=== PATIENT | female | born 1970 | race American Indian/Alaskan Native ===

== ENCOUNTER 2019-10-22 09:32 | Emergency (ER) | payer OTHER ==
[2019-10-22] MEDS ORDERED: KETOROLAC 30 MG/1 ML INJ IM ONE (12:31)
--- NOTE | 2019-10-22 12:55 | XRay Report ---
LEFT FOREARM HISTORY: Pain. COMPARISON: None. TECHNIQUE: 2 views of the left forearm were obtained. FINDINGS: Bones: No fracture or dislocation. Joint spaces: Maintained. Soft tissues: No significant abnormality. Additional findings: None. IMPRESSION: 1. No significant abnormality. Signer Name: Donnell Ritter MD Signed: 10/22/2019 12:50 PM Workstation Name: [id number]
--- NOTE | 2019-10-22 12:57 | XRay Report ---
LEFT HAND HISTORY: Pain. COMPARISON: None. TECHNIQUE: 3 views of the left hand were obtained. FINDINGS: Bones: No fracture or dislocation. Joint spaces: Mild osteoarthritis at the first MCP joint. The rest of the joints are normal. Soft tissues: No significant abnormality. Additional findings: None. IMPRESSION: 1. Mild osteoarthritis of the thumb and otherwise negative. Signer Name: Donnell Ritter MD Signed: 10/22/2019 12:52 PM Workstation Name: [id number]
--- NOTE | 2019-10-22 13:29 | Emergency Department Report ---
ED General Adult HPI - General Chief complaint: Extremity Injury, Upper Stated complaint: LFT HAND SWELLING/PAIN Time Seen by Provider: 10/22/19 11:18 Source: patient Mode of arrival: Ambulatory Limitations: No Limitations - History of Present Illness Initial comments: 49 yo BF states that she has L wrist and forearm pain x 1 day after attempting to get up from the floor. Pt states that her pain is a 10. -: days(s) Location: upper extremity Radiation: distal Severity scale (0 -10): 7 Quality: aching Consistency: constant Improves with: immobilization Worsens with: movement Associated Symptoms: denies other symptoms Treatments Prior to Arrival: none - Related Data Previous Rx's Medication Instructions Recorded Last Taken Type Ibuprofen [Motrin 600 MG tab] 600 mg PO Q8H PRN 7 Days #21 tablet 10/22/19 Unknown Rx Allergies Allergy/AdvReac Type Severity Reaction Status Date / Time No Known Allergies Allergy Unverified 10/22/19 09:34 ED Review of Systems ROS: Stated complaint: LFT HAND SWELLING/PAIN Other details as noted in HPI ED Past Medical Hx - Past Medical History Hx Hypertension: Yes Hx Asthma: Yes Additional medical history: fibromyalgia - Surgical History Additional Surgical History: tonsilectomy - Social History Smoking Status: Never Smoker Substance Use Type: None - Medications Home Medications: Home Medications Medication Instructions Recorded Confirmed Last Taken Type Ibuprofen [Motrin 600 MG tab] 600 mg PO Q8H PRN 7 Days #21 tablet 10/22/19 Unknown Rx ED Physical Exam - General Limitations: No Limitations General appearance: alert, in no apparent distress - Head Head exam: Present: atraumatic, normocephalic, normal inspection - Eye Eye exam: Present: normal appearance, PERRL, EOMI - ENT ENT exam: Present: normal exam, normal orophraynx - Neck Neck exam: Present: normal inspection, full ROM. Absent: tenderness - Respiratory Respiratory exam: Present: normal lung sounds bilaterally. Absent: respiratory distress, wheezes - Cardiovascular Cardiovascular Exam: Present: regular rate, normal rhythm, normal heart sounds - GI/Abdominal GI/Abdominal exam: Present: soft. Absent: distended, tenderness - Rectal Rectal exam: Present: deferred - Expanded Upper Extremity Exam Left General: Absent: laceration, abrasion Shoulder Exam: Present: normal inspection, full ROM. Absent: tenderness Upper Arm exam: Present: normal inspection, full ROM. Absent: tenderness, swelling Elbow exam: Present: normal inspection, full ROM. Absent: tenderness Forearm Wrist exam: Present: tenderness (diffuse distal tenderness of L forearm), swelling (mild swelling distally of L forearm) Hand Wrist exam: Present: normal inspection, full ROM, tenderness (L distal wrist and proximal hand) Neuro motor exam: Present: wrist extension intact Neurosensory exam: Present: 2-point discrimination Vascular: Present: normal capillary refill - Back Exam Back exam: Present: normal inspection, full ROM. Absent: tenderness - Neurological Exam Neurological exam: Present: alert, altered, oriented X3, CN II-XII intact, normal gait - Psychiatric Psychiatric exam: Present: normal affect, normal mood. Absent: depressed - Skin Skin exam: Present: warm, dry, intact ED Course Vital Signs 10/22/19 10/22/19 09:38 09:46 Temperature 99.0 F 99.0 F Pulse Rate 93 H 93 H Respiratory 18 18 Rate Blood Pressure 152/102 Blood Pressure 182/111 [Right] O2 Sat by Pulse 100 99 Oximetry ED Medical Decision Making - Radiology Data Print Report Referring Physician: KEVIN LUNA Patient Name: SAMANTHA CARDENAS Date of : 1970 Sex: Female Report Date: 2019-10-22 Report Status: Finalized Findings [address] [address] XRay Report Signed Patient: SAMANTHA CARDENAS MR#: [id number] : 1970 Acct:[id number] Age/Sex: 49 / F ADM Date: 10/22/19 Loc: ED Attending Dr: Ordering Physician: KEVIN LUNA PA-C Date of Service: 10/22/19 Procedure(s): XR hand 3+V LT Accession Number(s): [id number] cc: KEVIN LUNA PA-C Fluoro Time In Minutes: LEFT HAND HISTORY: Pain. COMPARISON: None. TECHNIQUE: 3 views of the left hand were obtained. FINDINGS: Bones: No fracture or dislocation. Joint spaces: Mild osteoarthritis at the first MCP joint. The rest of the joints are normal. Soft tissues: No significant abnormality. Additional findings: None. IMPRESSION: 1. Mild osteoarthritis of the thumb and otherwise negative. Signer Name: Donnell Eisenberg MD Signed: 10/22/2019 12:52 PM Workstation Name: [id number] Transcribed By: REF Dictated By: DONNELL EISENBERG MD Electronically Authenticated By: DONNELL EISENBERG MD Signed Date/Time: 10/22/19 1252 DD/ 1250 TD/TT: Print Report Referring Physician: KEVIN LUNA Patient Name: SAMANTHA CARDENAS Date of : 1970 Sex: Female Report Date: 2019-10-22 Report Status: Finalized Findings [facility] [address] [place] [address] XRay Report Signed Patient: SAMANTHA CARDENAS MR#: [id number] : 1970 Acct:[id number] Age/Sex: 49 / F ADM Date: 10/22/19 Loc: ED Attending Dr: Ordering Physician: KEVIN LUNA PA-C Date of Service: 10/22/19 Procedure(s): XR forearm LT Accession Number(s): [id number] cc: KEVIN LUNA PA-C Fluoro Time In Minutes: LEFT FOREARM HISTORY: Pain. COMPARISON: None. TECHNIQUE: 2 views of the left forearm were obtained. FINDINGS: Bones: No fracture or dislocation. Joint spaces: Maintained. Soft tissues: No significant abnormality. Additional findings: None. IMPRESSION: 1. No significant abnormality. Signer Name: Donnell Eisenberg MD Signed: 10/22/2019 12:50 PM Workstation Name: [id number] Transcribed By: REF Dictated By: DONNELL EISENBERG MD Electronically Authenticated By: DONNELL EISENBERG MD Signed Date/Time: 10/22/19 1250 DD/ 1249 TD/TT: - Medical Decision Making 49 yo BF states that she has L wrist and forearm pain x 1 day after attempting to get up from the floor. Pt states that her pain is a 10. Imaging revealed no acute abnormalities. A wrist splint was applied and the pt was given Ibuprofen upon discharge. She was explained that her injury and exam are indicative of a wrist sprain. Pt was instructed to f/u with her PCP and see ER as needed. Critical care attestation.: If time is entered above; I have spent that time in minutes in the direct care of this critically ill patient, excluding procedure time. ED Disposition Clinical Impression: Left wrist sprain Disposition: - TO HOME OR SELFCARE Is pt being admited?: No Does the pt Need Aspirin: No Condition: Stable Instructions: Wrist Sprain (ED) Additional Instructions: A wrist splint was applied and the pt was given Ibuprofen upon discharge. She was explained that her injury and exam are indicative of a wrist sprain. Pt was instructed to f/u with her PCP and see ER as needed. Prescriptions: Ibuprofen [Motrin 600 MG tab] 600 mg PO Q8H PRN 7 Days #21 tablet PRN Reason: Pain Referrals: PRIMARY CARE, [Primary Care Provider] - 3-5 Days [facility] [Outside] - 3-5 Days Time of Disposition: 13:42
[2019-10-22 13:34] VITALS: BP 174/99
== END 2019-10-22 13:55 | disposition home or self-care (01) ==
LOC: ED 09:32
DX: S63.502A Unspecified sprain of left wrist, initial encounter (principal); X50.9XXA Other and unspecified overexertion or strenuous movements or postures, initial encounter; Y93.89 Activity, other specified; Y92.89 Other specified places as the place of occurrence of the external cause; Y99.8 Other external cause status; I10 Essential (primary) hypertension; J45.909 Unspecified asthma, uncomplicated
CPT/HCPCS: 29125; 73090; 73130; 96372; 99283; J1885

== ENCOUNTER 2021-01-09 10:10 | Inpatient (IN) | payer OTHER ==
[2021-01-09] MEDS ORDERED: ASPIRIN 81 MG TAB CHEW PO ONE (10:16)
[2021-01-09] MEDS ORDERED: HEPARIN 10,000 UNITS/10 ML VIAL IV ONE (10:16)
[2021-01-09] MEDS ORDERED: CLOPIDOGREL 300 MG TAB PO ONE (10:16)
[2021-01-09] MEDS ORDERED: MIDAZOLAM 2 MG/2 ML INJ ONE (10:17)
[2021-01-09] MEDS ORDERED: fentaNYL 100 MCG/2 ML INJ IV ONE (10:17)
[2021-01-09] MEDS ORDERED: VERAPAMIL 5 MG/2 ML INJ ONE ×2 (10:17→11:39)
[2021-01-09] MEDS ORDERED: HEPARIN/NS 5000 UNIT/500ML 1,000 ML IR ONE (10:17)
[2021-01-09] MEDS ORDERED: ONDANSETRON 4 MG/2 ML INJ IV ONE (10:17)
[2021-01-09] MEDS ORDERED: NITROGLYCERIN SYRINGE 3 ML ONE ×3 (10:18→12:03)
[2021-01-09] MEDS ORDERED: LIDOCAINE (2%) 20 MG/1 ML VIAL 20 ML MDV INFILTRATI ONE (10:18)
[2021-01-09] MEDS ORDERED: ATROPINE 0.1% (1 MG/10 ML) CARDIAC SYRINGE ONE (10:19)
[2021-01-09] MEDS ORDERED: EPINEPHrine 1 MG/10 ML SYRINGE ONE (10:19)
[2021-01-09] MEDS ORDERED: PHENYLEPHRINE/NS 1,000 MCG/10 ML SYRINGE (OR USE) IV ONE (10:19)
[2021-01-09] MEDS ORDERED: SODIUM CHLORIDE 0.9% 500 ML 500 ML ONE (10:20)
--- NOTE | 2021-01-09 10:24 | Emergency Department Report ---
HPI - General Time Seen by Provider: 01/09/21 10:15 - HPI HPI: Room 1 The patient is a 42-year-old female present with chief complaint of chest pain. Patient states she is has substernal chest pain since last night described as a pressure in nature radiating to her back and right upper extremity. Patient admits to shortness of breath and nausea without vomiting in addition to diaphoresis associated with this chest pain. EMS called prior to arrival to the ED to describe the prehospital EKG but it was not transmitted. Machine Stuffer Dr. Key was called at 09:55 and made aware of EMS findings and EKG ED Past Medical Hx - Past Medical History Hx Hypertension: Yes Hx Asthma: Yes Additional medical history: fibromyalgia - Surgical History Past Surgical History?: No Additional Surgical History: tonsilectomy - Family History Family history: no significant - Social History Smoking Status: Never Smoker Substance Use Type: None - Medications Home Medications: Home Medications Medication Instructions Recorded Confirmed Last Taken Type Ibuprofen [Motrin 600 MG tab] 600 mg PO Q8H PRN 7 Days #21 tablet 10/22/19 Unknown Rx ED Review of Systems ROS: Stated complaint: POSSIBLE STROKE Other details as noted in HPI Constitutional: no symptoms reported Eyes: denies: eye pain ENT: denies: throat pain Respiratory: shortness of breath Cardiovascular: chest pain Endocrine: no symptoms reported Gastrointestinal: nausea. denies: vomiting Genitourinary: denies: dysuria Musculoskeletal: denies: back pain Neurological: denies: headache Physical Exam - Physical Exam Physical Exam: GENERAL: The patient is well-developed well-nourished female lying on stretcher appearing to be in moderate discomfort. [] HEENT: Normocephalic. Atraumatic. Extraocular motions are intact. Patient has moist mucous membranes. NECK: Supple. Trachea midline CHEST/LUNGS: Clear to auscultation. There is no respiratory distress noted. HEART/CARDIOVASCULAR: Regular. There is no tachycardia. There is no gallop rub or murmur. ABDOMEN: Abdomen is soft, nontender. Patient has normal bowel sounds. There is no abdominal distention. SKIN: There is no rash. There is no diaphoresis. NEURO: The patient is awake, alert, and oriented. The patient is cooperative. The patient has no focal neurologic deficits. The patient has normal speech MUSCULOSKELETAL: There is no evidence of acute injury. ED Course - Consultations Consultation #1: 04/05/21 10:10 Prehospital EKGs sent to Dr. Key-recommends Plavix, heparin drip and taking to [facility] ED Medical Decision Making - EKG Data -: EKG Interpreted by Me EKG shows normal: sinus rhythm Rate: normal - EKG Data When compared to previous EKG there are: previous EKG unavailable Interpretation: acute NJ (EMS EKG showed shows inferior NJ) - Differential Diagnosis STEMI, pericarditis, GERD Critical care attestation.: If time is entered above; I have spent that time in minutes in the direct care of this critically ill patient, excluding procedure time. ED Disposition Clinical Impression: STEMI (ST elevation myocardial infarction) Disposition: DC-09 OP ADMIT IP TO THIS HOSP Is pt being admited?: Yes Does the pt Need Aspirin: Yes Condition: Serious Time of Disposition: 10:35 (Hospitalist notified (Dr. Alexander))
[2021-01-09] MEDS: fentaNYL 100 MCG/2 ML INJ ONE ×3 (10:57→11:43)
[2021-01-09] MEDS ORDERED: hydrALAZINE 20 MG/1 ML INJ ONE (11:01)
[2021-01-09] MEDS ORDERED: TIROFIBAN/NS 12,500 MCG/250 ML BAG IV ONE (11:06)
[2021-01-09] MEDS: HEPARIN 10,000 UNITS/10 ML VIAL ONE ×2 (11:08→12:15)
[2021-01-09 11:09] LABS: INR 0.94 (0.87-1.13)
[2021-01-09 11:10] LABS: Partial Thromboplastin Time 35.7 Sec. (24.2-36.6)
[2021-01-09] MEDS ORDERED: NITROGLYCERIN DRIP 50 MG/250 ML BOTTLE ONE (11:18)
[2021-01-09 11:25] LABS: Hematocrit 48.2 % (30.3-42.9); Hemoglobin 16.9 gm/dl (10.1-14.3); Mean Corpuscular HGB Conc 35 % (30-34); Mean Corpuscular Volume 88 fl (79-97); Red Blood Count 5.49 M/mm3 (3.65-5.03)
[2021-01-09 11:26] LABS: Basophils % (Auto) 0.4 % (0.0-1.8); Eosinophils % (Auto) 0.1 % (0.0-4.3); Lymphocytes % (Auto) 19.9 % (13.4-35.0); Monocytes % (Auto) 8.6 % (0.0-7.3); Platelet Count 320 K/mm3 (140-440); Red Cell Distribution Width 15.3 % (13.2-15.2)
[2021-01-09 11:27] LABS: Lymphocytes # (Auto) 1.9 K/mm3 (1.2-5.4); Monocytes # (Auto) 0.8 K/mm3 (0.0-0.8)
[2021-01-09] MEDS ORDERED: NITROGLYCERIN 600 MCG/3 ML SYRINGE INTRA-CORO ONE ×3 (11:30→12:03)
[2021-01-09] MEDS ORDERED: TIROFIBAN 12.5 MG/250 ML BOLUS (50 MCG/ML) IV ONE (11:38)
[2021-01-09] MEDS ORDERED: HEPARIN/ 0.45% NACL DRIP 25,000 UNIT/500 ML BAG IV SCH (12:00)
[2021-01-09] MEDS ORDERED: METOPROLOL TARTRATE 5 MG/5 ML INJ IV ONE (12:03)
[2021-01-09] MEDS ORDERED: traMADol 50 MG TAB PO PRN (12:38)
[2021-01-09] MEDS ORDERED: ZOLPIDEM 5 MG TAB PO PRN (12:38)
[2021-01-09] MEDS ORDERED: SODIUM CHLORIDE 0.9% 1000 ML 1,000 ML IV SCH (12:45)
--- NOTE | 2021-01-09 12:47 | Consultation ---
History of Present Illness Consult date: 01/09/21 Consult reason: other (Acute STEMI) History of present illness: The patient is a 50-year-old woman with a history of hypertension, no prior cardiac history. She presented to the emergency room with an acute inferior STEMI. Emergency cardiac catheterization protocol was activated. 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 Primary angioplasty was performed, revealing the diffusely diseased and calcified vessel, required extensive balloon angioplasty, serial 3.5 mm drug- eluting stents and adjunct export catheter thrombectomy for extensive intraluminal thrombus. Ultimately, an excellent angiographic result and church of DESTINY-3 flow. Please see dictated report for details. It will be noted that due to difficulty in transitioning wires and balloon catheters through a tortuous, diffusely diseased and heavily calcified vessel, there was a delay in first balloon dilatation. The patient is admitted to the CCU in stable condition, an echocardiogram will be ordered for left ventricular function assessment. Left ventricular angiogr aphy was deferred due to considerations of contrast load. Past History Past Medical History: hypertension Medications and Allergies Allergies Allergy/AdvReac Type Severity Reaction Status Date / Time No Known Allergies Allergy Unverified 10/22/19 09:34 Home Medications Medication Instructions Recorded Confirmed Last Taken Type Ibuprofen [Motrin 600 MG tab] 600 mg PO Q8H PRN 7 Days #21 tablet 10/22/19 Unknown Rx Active Meds: Active Medications Amlodipine Besylate (Amlodipine 10 Mg Tab) 10 mg PO QDAY GIDEON Aspirin (Aspirin Ec 325 Mg Tab) 325 mg PO QDAY GIDEON Clopidogrel Bisulfate (Clopidogrel 75 Mg Tab) 75 mg PO QDAY GIDEON Sodium Chloride (Nacl 0.9% 1000 Ml) 1,000 mls @ 100 mls/hr IV DIRECT GIDEON Stop: 01/10/21 00:44 Nitroglycerin/Dextrose (Tridil Drip 50mg/250ml) 50 mg in 250 mls @ 6 mls/hr IV TITR ONE; Protocol Stop: 01/11/21 06:17 Tirofiban/Sodium Chloride (Aggrastat Drip (12.5 Mg/250 Ml)) 12,500 mcg in 250 mls @ 0 mls/hr IV DIRECT GIDEON; Protocol Stop: 01/10/21 06:59 Metoprolol Tartrate (Metoprolol Tartrate 50 Mg Tab) 50 mg PO Q8H GIDEON Tramadol HCl (Tramadol 50 Mg Tab) 50 mg PO Q4H PRN PRN Reason: Pain, Mild (1-3) Zolpidem Tartrate (Zolpidem 5 Mg Tab) 5 mg PO QHS PRN PRN Reason: Sleep Review of Systems Cardiovascular: chest pain, shortness of breath, no orthopnea, no palpitations, no rapid/irregular heart beat, no edema, no syncope, no lightheadedness Physical Examination Vital Signs Pulse Resp BP Pulse Ox 118 H 16 186/114 100 01/09/21 10:10 01/09/21 10:10 01/09/21 10:10 01/09/21 10:10 General appearance: mild distress HEENT: Positive: PERRL Cardiac: Positive: Reg Rate and Rhythm Lungs: Positive: clear to auscultation Neuro: Positive: Grossly Intact Abdomen: Positive: Soft Female genitourinary: deferred Skin: Positive: Clear Extremities: Absent: edema Results 01/09/21 10:43 Coagulation 01/09/21 Range/Units 10:43 PT 12.4 (12.2-14.9) Sec. INR 0.94 (0.87-1.13) APTT 35.7 (24.2-36.6) Sec. CBC 01/09/21 Range/Units 10:43 WBC 9.5 (4.5-11.0) K/mm3 RBC 5.49 H (3.65-5.03) M/mm3 Hgb 16.9 H (10.1-14.3) gm/dl Hct 48.2 H (30.3-42.9) % Plt Count 320 (140-440) K/mm3 Lymph # (Auto) 1.9 (1.2-5.4) K/mm3 Johnston # (Auto) 0.8 (0.0-0.8) K/mm3 Eos # (Auto) 0.0 (0.0-0.4) K/mm3 Baso # (Auto) 0.0 (0.0-0.1) K/mm3 EKG interpretations - Telemetry EKG Rhythm: Sinus Rhythm (With acute inferior STEMI) Assessment and Plan - Patient Problems (1) STEMI (ST elevation myocardial infarction) Current Visit: Yes Status: Acute Plan to address problem: Acute inferior STEMI was followed by emergency cardiac catheterization and successful primary angioplasty and stenting of the right coronary artery. Patient will be admitted to the CCU, an echocardiogram has been ordered for left ventricular function assessment, will maintain guideline directed medical the rapy and appropriate supportive care. Due to the intraluminal thrombus, the patient will be treated with Aggrastat for 18 hours. I have had a phone conversation with the patient's sister Wendy, and informed her of the presentation, findings of cardiac catheterization and the treatments including the interventional procedure.
[2021-01-09] MEDS ORDERED: TIROFIBAN/NS 12,500 MCG/250 ML BAG IV SCH (13:00)
--- NOTE | 2021-01-09 13:01 | Cardiac Catherization Report ---
CARDIAC CATHETERIZATION AND CORONARY ANGIOPLASTY REASON FOR PROCEDURE: The patient is a 50-year-old woman with history of hypertension, who presented to the hospital with chest pain and inferior ST elevation myocardial infarction. Emergency cardiac catheterization protocol was activated and we were asked to perform a cardiac catheterization. The patient reports no prior coronary history. PROCEDURES: 1. Left heart catheterization. 2. Selective left and right coronary angiography. 3. Coronary angioplasty and stenting of the right coronary artery. 4. Calvert catheter thrombectomy of the RCA 5. Sedation time; start 1057, end 1209. I was present for the entire procedure and supervised the moderate sedation protocol. The patient was prepped and draped in a sterile fashion under emergency protocol. The right femoral artery was entered using Seldinger technique followed by placement of a 6-Niuean sheath. Selective angiography of the left coronary system was done using a #4 left Crystal catheter. We then exchanged for a #4 right Crystal guiding catheter and advanced to the right coronary ostium. Angiograms of the right coronary artery were taken. The angiograms were reviewed. CORONARY ANGIOGRAPHY: The left main coronary artery was free of significant disease. The left anterior descending artery contained mild luminal irregularities in its mid segment. There was enough to 20% luminal stenosis of the mid LAD. The circumflex artery contained a 50% stenosis of its mid AV groove segment before its terminal obtuse marginal. The right coronary artery was dominant, and infarct vessel. This vessel was completely occluded at its ostium. There was no forward flow. CORONARY ANGIOPLASTY: We proceeded with immediate primary angioplasty of the right coronary artery. A 0.014 inch Can Carrier 50 guidewire was introduced into the vessel Due to the severe calcification and tortuosity at the proximal right coronary artery, there was marked difficulty in both transitioning a guidewire and a balloon catheter into the vessel. We used multiple guidewire and balloon catheter combinations including an [id number] balloon and eventually we were able to transition a 1.5 mm balloon into the vessel to perform predilatation. Due to the tortuosity and poor vessel compliance, we also upgraded the wire to an Iron Man wire for easier delivery of balloon catheters and stents. Due to the difficulty encountered in transitioning a wire and balloon catheters into this heavily calcified, tortuous vessel that was occluded at its ostium, there was a delay in initial balloon delivery and inflation. After finally successfully dilating the vessel and reestablishing DESTINY 2 flow, we found a diffusely diseased vessel extending from the ostium all the way to the acute margin. There was another secondary stenosis of the distal AV groove between the acute margin and the posterior descending branch. We then deployed a serial, 3.5 mm stents extending from the ostium covering the entire proximal and mid segments. After this initial stent, there was evidence of extensive residual filling defect that appeared consistent with thrombus. EXPORT CATHETER THROMBECTOMY: We then deployed an Calvert catheter in order to attenuate the extensive thrombus encountered in the vessel. Following several passes, the thrombus burden was mitigated but there was still residual severe disease involving the area around the acute margin. Another series of 3.5 mm drug-eluting stents were then deployed around the acute margin and focally on the distal secondary lesion. Following deployment of these stents as described, there was an excellent angiographic result, no residual stenosis in the proximal and mid segment and distal AV groove vessel. DESTINY 3 flow was restored through the vessel. Procedure was well tolerated by the patient and there were no complications. CONCLUSION: 1. The patient presented with an acute inferior wall ST elevation myocardial infarction. 2. The infarct lesion was complete occlusion of the right coronary artery at its ostium. 3. Successful primary angioplasty and stenting with faith of DESTINY 3 flow, and serial stents deployed through the proximal, mid, and distal vessel. 4. Secondary, nonobstructive lesions in the mid circumflex and mid left anterior descending will be recommended for aggressive risk factor modification, medical therapy and clinical followup. 5. An echocardiogram will be ordered for left ventricular function assessment. The catheters and the wires were removed, sheath removed, hemostasis achieved using an Angio-Seal device. The patient was returned to the postprocedure unit in stable condition. There were no complications. [facility]# [id number] KENNY/ALONDRA CHAPA
[2021-01-09] MEDS ORDERED: NITROGLYCERIN DRIP 50 MG/250 ML BOTTLE IV ONE (13:38)
--- NOTE | 2021-01-09 13:57 | History and Physical Report ---
History of Present Illness Date of admission: 01/09/21 12:37 Chief complaint: Chest Pain History of present illness: 50 YO Female with Obesity Hypoventilation Syndrome, Asthma, Fibromyalgia, HTN presents to ED for evaluation. Patient reports "my chest hurts". Patient states that she has experienced pain in her chest over the past 1 day with worsening symptoms over the past 6 hours. Patient states that pain is 9/10, constant, burning in nature, associated with shortness of breath, radiating to the back and right upper extremity, crushing in nature, worsened with exertion, not relieved with rest. EMS was notified and upon arrival the patient was found to be in distress and subsequently transported to [facility] for further care and evaluation of the aforementioned symptoms. The patient was seen and evaluated in the emergency department. All lab and imaging studies reviewed. Patient underwent EKG which revealed evidence of ST elevation NC. Patient also found to have clinical symptoms consistent with Diastolic CHF. Cardiology team consulted and the patient was taken urgently to cardiac Blood Bank Custodian for surgical intervention. Patient admitted to ICU due to increased risk of worsening symptoms. No prior admission for review. No medication listed at time of admission for reconciliation. Patient denies fever, chills, palpitations, productive cough, skin rash, trauma, recent ill contacts, or known exposure to COVID-19. Past History Past Medical History: hypertension, other (See HPI) Past Surgical History: tonsillectomy Social history: single Family history: diabetes, hypertension Medications and Allergies Allergies Allergy/AdvReac Type Severity Reaction Status Date / Time No Known Allergies Allergy Unverified 10/22/19 09:34 Home Medications Medication Instructions Recorded Confirmed Last Taken Type Ibuprofen [Motrin 600 MG tab] 600 mg PO Q8H PRN 7 Days #21 tablet 10/22/19 Unknown Rx Active Meds: Active Medications Amlodipine Besylate (Amlodipine 10 Mg Tab) 10 mg PO QDAY GIDEON Aspirin (Aspirin Ec 325 Mg Tab) 325 mg PO QDAY GIDEON Atorvastatin Calcium (Atorvastatin 40 Mg Tab) 40 mg PO QHS GIDEON Clopidogrel Bisulfate (Clopidogrel 75 Mg Tab) 75 mg PO QDAY GIDEON Hydrochlorothiazide (Hydrochlorothiazide 25 Mg Tab) 25 mg PO QDAY GIDEON Sodium Chloride (Nacl 0.9% 1000 Ml) 1,000 mls @ 100 mls/hr IV DIRECT GIDEON Stop: 01/10/21 00:44 Nitroglycerin/Dextrose (Tridil Drip 50mg/250ml) 50 mg in 250 mls @ 6 mls/hr IV TITR ONE; Protocol Stop: 01/11/21 07:17 Tirofiban/Sodium Chloride (Aggrastat Drip (12.5 Mg/250 Ml)) 12,500 mcg in 250 mls @ 18 mls/hr IV DIRECT GIDEON; Protocol Stop: 01/10/21 06:59 Metoprolol Tartrate (Metoprolol Tartrate 50 Mg Tab) 50 mg PO Q8H GIDEON Sodium Chloride (Sodium Chloride 0.9% 10 Ml Flush Syringe) 10 ml IV BID GIDEON Sodium Chloride (Sodium Chloride 0.9% 10 Ml Flush Syringe) 10 ml IV PRN PRN PRN Reason: LINE FLUSH Tramadol HCl (Tramadol 50 Mg Tab) 50 mg PO Q4H PRN PRN Reason: Pain, Mild (1-3) Zolpidem Tartrate (Zolpidem 5 Mg Tab) 5 mg PO QHS PRN PRN Reason: Sleep Review of Systems Constitutional: no weight loss, no weight gain, no fever, no chills Ears, nose, mouth and throat: no ear pain, no tinnitis, no nose pain Breasts: no change in shape, no mass Cardiovascular: chest pain, shortness of breath, dyspnea on exertion, decreased exercise tolerance, no palpitations, no rapid/irregular heart beat Respiratory: no cough, no cough with sputum, no excessive sputum, no shortness of breath Gastrointestinal: nausea, no vomiting, no diarrhea, no change in bowel habits, no coffee ground emesis Genitourinary Female: no pelvic pain, no flank pain, no dysuria, no urinary frequency, no urgency Rectal: no pain, no incontinence, no bleeding Musculoskeletal: no neck stiffness, no shooting arm pain, no arm numbness/tingling, no low back pain, no shooting leg pain, no leg numbness/tingling Integumentary: no rash, no wounds Neurological: no head injury, no transient paralysis, no paralysis, no parathesias, no tingling, no seizures, no syncope, no tremors Psychiatric: no anxiety, no sleep disturbances, no hypersomnia, no change in appetite, no suicidal ideation, no disorientation Endocrine: no cold intolerance, no heat intolerance, no polyphagia, no excessive thirst, no polydipsia, no polyuria, no nocturia, no flushing Hematologic/Lymphatic: no easy bruising, no easy bleeding, no lymphadenopathy, no lymphedema Allergic/Immunologic: no urticaria, no persistent infections, no anaphylaxis Exam - Constitutional Vitals: Temp Pulse Resp BP Pulse Ox 118 H 16 186/114 100 01/09/21 10:10 01/09/21 10:35 01/09/21 10:10 01/09/21 10:20 General appearance: Present: mild distress, obese - EENT Eyes: Present: PERRL ENT: hearing intact, clear oral mucosa - Neck Neck: Present: supple, normal ROM - Respiratory Respiratory effort: normal Respiratory: bilateral: CTA - Cardiovascular Heart Sounds: Present: S1 & S2. Absent: rub, click - Extremities Extremities: pulses symmetrical, No edema Peripheral Pulses: within normal limits - Abdominal General gastrointestinal: Present: soft, non-tender, non-distended, normal bowel sounds Female genitourinary: Present: normal - Integumentary Integumentary: Present: clear, warm, dry - Musculoskeletal Musculoskeletal: gait normal, strength equal bilaterally - Psychiatric Psychiatric: appropriate mood/affect, intact judgment & insight - Neurologic Neurologic: CNII-XII intact, moves all extremities Results - Labs CBC & Chem 7: 01/09/21 10:43 Labs: Abnormal lab results 01/09/21 Range/Units 10:43 RBC 5.49 H (3.65-5.03) M/mm3 Hgb 16.9 H (10.1-14.3) gm/dl Hct 48.2 H (30.3-42.9) % MCHC 35 H (30-34) % RDW 15.3 H (13.2-15.2) % [place] % (Auto) 8.6 H (0.0-7.3) % Seg Neutrophils % 71.0 H (40.0-70.0) % Assessment and Plan - Patient Problems (1) STEMI (ST elevation myocardial infarction) Current Visit: Yes Status: Acute Plan to address problem: Patient admitted to ICU and initiated on ST elevation NC protocol. Cardiology team consulted in ED. Patient taken urgently to cardiac Blood Bank Custodian for surgical intervention, therapeutic anticoagulation as per cardiology team recommendations, supportive care. The high probability of a clinically significant, sudden or life threatening deterioration of the [cardiac, pulmonary, renal] system(s) required my full and direct attention, intervention and personal management. The aggregate critical care time was [65] minutes. This time is in addition to time spent performing reported procedures but includes the following: [x] Data Review and interpretation [x] Patient assessment and monitoring of vital signs [x] Documentation [x] Medication orders and management (2) Obesity hypoventilation syndrome Current Visit: Yes Status: Acute Plan to address problem: Balanced diet, increase physical activity at discharge, risk factor reduction, outpatient pulmonary follow-up for sleep study (3) Diastolic CHF Current Visit: Yes Status: Acute Qualifiers: Heart failure chronicity: acute Qualified Code(s): I50.31 - Acute diastolic (congestive) heart failure Plan to address problem: Strict I/O, monitor urine output every shift, daily weight, afterload reduction, blood pressure control, further testing as per cardiology team. (4) Accelerated hypertension Current Visit: Yes Status: Acute Plan to address problem: Monitor blood pressure every shift, continue medical medical management. (5) Hyperlipidemia Current Visit: Yes Status: Acute Qualifiers: Hyperlipidemia type: mixed hyperlipidemia Qualified Code(s): E78.2 - Mixed hyperlipidemia Plan to address problem: Lipid panel, statin therapy, low-cholesterol diet, supportive care. (6) DVT prophylaxis Current Visit: Yes Status: Acute Plan to address problem: SCDs bilateral lower extremities while in bed, continue therapeutic anticoagulation.
[2021-01-09] MEDS: amLODIPine 10 MG TAB PO SCH (14:09)
[2021-01-09] MEDS: METOPROLOL TARTRATE 50 MG TAB PO SCH ×2 (14:11→21:33)
[2021-01-09 17:07] LABS: Creatine Kinase MB 26.2 ng/mL (0.0-4.0)
[2021-01-09 17:09] LABS: Blood Urea Nitrogen 13 mg/dL (7-17); Calcium 8.9 mg/dL (8.4-10.2); Hemolysis Index 60
[2021-01-09 17:16] LABS: BUN/Creatinine Ratio 19
[2021-01-09 17:31] LABS: Chol/HDL Ratio 7.52 %
--- NOTE | 2021-01-10 04:58 | XRay Report ---
CHEST 1 VIEW 01/10/2021 3:46 AM INDICATION / CLINICAL INFORMATION: post pci. COMPARISON: None available. FINDINGS: SUPPORT DEVICES: None. HEART / MEDIASTINUM: No significant abnormality. LUNGS / PLEURA: No significant pulmonary or pleural abnormality. No pneumothorax. ADDITIONAL FINDINGS: No significant additional findings. IMPRESSION: 1. No acute findings. Signer Name: Bandar Black MD Signed: 01/10/2021 4:53 AM Workstation Name: [id number]
[2021-01-10] MEDS: METOPROLOL TARTRATE 50 MG TAB PO SCH ×3 (05:20→22:08)
[2021-01-10 06:08] LABS: Basophils % (Auto) 0.3 % (0.0-1.8); Eosinophils % (Auto) 0.3 % (0.0-4.3); Hematocrit 37.4 % (30.3-42.9); Hemoglobin 12.7 gm/dl (10.1-14.3); Lymphocytes # (Auto) 2.3 K/mm3 (1.2-5.4); Lymphocytes % (Auto) 27.2 % (13.4-35.0); Mean Corpuscular HGB Conc 34 % (30-34); Mean Corpuscular Volume 90 fl (79-97); Monocytes % (Auto) 11.7 % (0.0-7.3); Platelet Count 249 K/mm3 (140-440); Red Blood Count 4.17 M/mm3 (3.65-5.03); Red Cell Distribution Width 14.7 % (13.2-15.2)
[2021-01-10 06:31] LABS: BUN/Creatinine Ratio 20; Blood Urea Nitrogen 12 mg/dL (7-17); Calcium 8.6 mg/dL (8.4-10.2); Hemolysis Index 96
[2021-01-10] MEDS: ASPIRIN EC 325 MG TAB PO SCH (09:12)
[2021-01-10] MEDS: amLODIPine 10 MG TAB PO SCH (09:13)
[2021-01-10] MEDS: CLOPIDOGREL 75 MG TAB PO SCH (09:25)
[2021-01-10] MEDS ORDERED: hydroCHLOROthiazide 25 MG TAB PO SCH (10:00)
--- NOTE | 2021-01-10 10:33 | Electrocardiograph Report ---
[facility] Test Date: 2021-01-09 Test Time: 10:18:59 Pat Name: SAMANTHA CARDENAS Department: Room: A251 Gender: F Parts Counterman: KRYSTYNA : 1970 Requested By: ISAAC PELAEZ Order Number: [id number] Reading MD: Andrés Romero Measurements Intervals [place] Rate: 92 P: 50 GA: 150 QRS: -6 QRSD: 90 T: 54 QT: 376 QTc: 464 Interpretive Statements Sinus rhythm Left atrial enlargement Probable left ventricular hypertrophy ST ELEVATION, PROBABLE INFERIOR INJURY Electronically Signed On 01-10-2021 10:32:51 EDT by Andrés Romero
--- NOTE | 2021-01-10 10:36 | Electrocardiograph Report ---
[facility] Test Date: 2021-01-09 Test Time: 13:31:52 Pat Name: SAMANTHA CARDENAS Department: Room: A251 1 Gender: F Medical Massage Therapist: JOSE ALFREDO : 1970 Requested By: МАРИЯ HOOVER Order Number: [id number] Reading MD: Andrés Romero Measurements Intervals [place] Rate: 97 P: 62 AL: 147 QRS: 25 QRSD: 87 T: 60 QT: 359 QTc: 457 Interpretive Statements Sinus rhythm Inferior infarct, acute Electronically Signed On 01-10-2021 10:36:13 EDT by Andrés Romero
--- NOTE | 2021-01-10 10:38 | Electrocardiograph Report ---
[facility] Test Date: 2021-01-09 Test Time: 22:52:55 Pat Name: SAMANTHA CARDENAS Department: Room: A251 1 Gender: F Director Digital Communications: REN : 1970 Requested By: МАРИЯ HOOVER Order Number: [id number] Reading MD: Andrés Romero Measurements Intervals [place] Rate: 91 P: 58 [place]: 142 QRS: 7 QRSD: 87 T: 74 QT: 365 QTc: 449 Interpretive Statements Sinus rhythm Multiple ventricular premature complexes Inferior infarct, acute Compared to ECG 01/09/2021 13:31:52 Ventricular premature complex(es) now present Myocardial infarct finding still present Electronically Signed On 01-10-2021 10:37:57 EDT by Andrés Romero
[2021-01-10] MEDS ORDERED: FLU VACC QUAD 2020-2021 (6 months +)/PF 60 0.5 ML SYRINGE IM ONE (12:00)
--- NOTE | 2021-01-10 12:02 | Progress Note ---
Assessment and Plan - Patient Problems (1) STEMI (ST elevation myocardial infarction) Current Visit: Yes Status: Acute Plan to address problem: Acute inferior STEMI s/p PCI of the right coronary artery. Echocardiogram has been ordered for left ventricular function assessment. Due to the intraluminal thrombus, the patient will be treated with Aggrastat for 18 hours. Once completed, patient can transfer to telemetry floor. Continue GDMT for coronary artery disease. Subjective Date of service: 01/10/21 Interval history: Patient is resting in bed and appears comfortable. She denies chest pain. Cardiac cath site to right groin is intact. No edema or hematoma noted. Objective Vital Signs Temp Pulse Pulse Pulse Resp BP Pulse Ox 01/10/21 11:20 95 H 13 110/77 100 01/10/21 11:10 85 13 106/75 87 01/10/21 11:00 91 H 16 106/75 100 01/10/21 10:50 90 15 98/70 100 01/10/21 10:40 86 15 101/72 97 01/10/21 10:30 80 15 101/72 96 01/10/21 10:20 89 14 93/61 91 01/10/21 10:10 92 H 17 125/59 100 01/10/21 10:00 84 14 103/58 100 01/10/21 09:50 69 11 L 103/58 01/10/21 09:40 78 10 L 94/48 100 01/10/21 09:30 87 20 107/77 97 01/10/21 09:20 87 19 107/77 01/10/21 09:10 90 15 75/51 99 01/10/21 09:00 86 15 80/53 100 01/10/21 08:50 88 15 88/56 98 01/10/21 08:40 81 18 100/76 100 01/10/21 08:30 78 15 100/76 99 01/10/21 08:20 80 17 104/71 99 01/10/21 08:10 80 14 103/79 100 01/10/21 08:00 98.0 F 79 15 103/79 100 01/10/21 07:50 84 14 121/79 100 01/10/21 07:40 82 15 120/79 100 01/10/21 07:30 86 18 120/79 100 01/10/21 07:20 82 16 121/79 100 01/10/21 07:10 77 16 115/82 100 01/10/21 07:00 75 11 L 115/82 100 01/10/21 06:50 76 17 116/78 100 01/10/21 06:40 79 15 100/61 100 01/10/21 06:30 79 16 100/61 99 01/10/21 06:20 78 20 108/68 100 06 06:10 82 17 119/65 100 01/10/21 06:00 87 21 107/70 100 01/10/21 05:50 97 H 17 107/70 100 01/10/21 05:40 90 17 118/76 100 01/10/21 05:30 96 H 14 119/78 100 01/10/21 05:20 93 H 14 119/78 100 01/10/21 05:10 89 18 117/84 100 01/10/21 05:00 95 H 17 117/84 99 01/10/21 04:50 102 H 22 128/85 98 01/10/21 04:40 94 H 18 120/83 98 01/10/21 04:30 87 18 120/83 99 01/10/21 04:20 88 17 119/83 100 01/10/21 04:10 89 18 119/77 99 01/10/21 04:00 98.6 F 86 92 H 16 119/77 99 01/10/21 03:50 92 H 19 122/75 99 01/10/21 03:40 96 H 16 116/83 99 06 03:30 87 20 116/79 100 01/10/21 03:20 94 H 17 116/83 100 01/10/21 03:10 92 H 17 115/79 99 06 03:00 88 17 115/79 100 01/10/21 02:50 90 16 113/76 100 06 02:40 93 H 17 119/78 99 06 02:30 99 H 17 119/78 100 01/10/21 02:20 100 H 19 122/82 99 06 02:10 100 H 18 124/84 100 06 02:00 89 17 131/75 98 01/10/21 01:50 94 H 17 124/84 99 01/10/21 01:40 101 H 16 133/91 100 01/10/21 01:30 90 15 133/91 99 01/10/21 01:20 90 17 133/91 99 01/10/21 01:10 104 H 15 124/79 100 01/10/21 01:00 90 17 108/61 100 01/10/21 00:50 88 17 124/79 100 01/10/21 00:40 87 15 116/85 100 01/10/21 00:30 88 16 116/85 98 01/10/21 00:20 90 16 100/65 100 01/10/21 00:10 86 17 109/82 100 01/10/21 00:00 97.5 F L 83 81 16 109/82 98 01/09/21 23:50 96 H 15 115/76 100 01/09/21 23:40 83 13 118/73 100 01/09/21 23:30 86 17 107/82 100 01/09/21 23:20 92 H 18 127/77 99 01/09/21 23:14 105 H 18 110/68 100 01/09/21 23:10 92 H 13 110/68 99 01/09/21 23:08 80 10 L 110/68 97 01/09/21 23:00 87 15 118/73 100 01/09/21 22:50 97 H 18 110/68 98 01/09/21 22:40 86 13 125/82 100 01/09/21 22:30 80 16 118/83 100 01/09/21 22:20 85 17 122/80 98 01/09/21 22:10 82 17 112/71 99 01/09/21 22:00 89 13 125/82 99 01/09/21 21:50 101 H 16 118/79 99 05 21:40 90 17 111/71 100 05 21:33 112/71 0405 21:30 81 19 119/75 100 05 21:20 89 19 112/71 100 05 21:10 87 19 111/71 100 05 21:00 86 19 111/71 100 01/09/21 20:50 90 21 114/78 100 05 20:40 86 21 114/79 100 05 20:30 87 12 114/79 100 05 20:27 98.7 F 01/09/21 20:20 91 H 18 59/23 100 01/09/21 20:10 100 H 14 59/23 98 01/09/21 20:00 98.7 F 103 H 94 H 18 102/73 100 01/09/21 19:50 95 H 14 112/75 96 01/09/21 19:47 98 01/09/21 19:40 99 H 16 112/75 100 01/09/21 19:36 22 01/09/21 19:30 98 H 15 112/75 99 01/09/21 19:20 99 H 40 H 106/82 97 01/09/21 19:10 101 H 30 H 87/29 98 01/09/21 19:00 101 H 19 112/82 97 01/09/21 18:50 104 H 16 112/82 100 01/09/21 18:40 97 H 24 103/62 100 01/09/21 18:30 98 H 12 103/62 100 01/09/21 18:20 98 H 14 105/69 99 01/09/21 18:10 100 H 18 110/79 99 01/09/21 18:00 97 H 14 110/79 100 01/09/21 17:50 95 H 16 90/66 91 05 17:40 92 H 17 79/57 98 05 17:30 96 H 20 126/80 01/09/21 17:20 90 12 121/85 99 01/09/21 17:10 103 H 18 120/59 99 01/09/21 17:00 94 H 13 120/59 97 01/09/21 16:50 96 H 19 126/80 05 16:40 91 H 14 130/92 98 01/09/21 16:30 95 H 16 130/92 99 01/09/21 16:26 98.8 F 05 16:20 97 H 15 138/85 100 05 16:10 95 H 18 138/95 98 01/09/21 16:00 95 H 21 138/95 97 01/09/21 15:50 97 H 13 155/100 100 01/09/21 15:40 102 H 18 152/96 100 01/09/21 15:30 96 H 17 152/96 97 01/09/21 15:20 90 15 157/105 98 01/09/21 15:17 96 H 85 16 98 01/09/21 15:10 83 13 158/85 97 01/09/21 15:00 92 H 14 158/85 99 01/09/21 14:50 96 H 16 158/85 01/09/21 14:40 99 H 16 158/85 98 01/09/21 14:30 99 H 14 158/85 97 01/09/21 14:20 98 H 17 157/95 98 01/09/21 14:11 99 H 180/105 01/09/21 14:10 102 H 15 180/105 99 01/09/21 14:09 108 H 180/105 01/09/21 14:00 101 H 18 158/98 01/09/21 13:50 102 H 11 L 158/98 98 01/09/21 13:40 97 H 10 L 149/89 99 01/09/21 13:30 100 H 14 157/95 01/09/21 13:20 105 H 12 157/95 100 01/09/21 13:10 102 H 14 181/106 100 01/09/21 13:00 101 H 18 172/109 01/09/21 12:50 105 H 14 172/109 100 01/09/21 12:40 173/107 98 01/09/21 12:34 99 - Physical Examination General: No Apparent Distress HEENT: Positive: PERRL Neck: Positive: trachea midline Cardiac: Positive: Reg Rate and Rhythm Lungs: Positive: Normal Breath Sounds Neuro: Positive: Grossly Intact Abdomen: Positive: Soft Skin: Positive: Clear Extremities: Absent: edema - Labs and Meds Cardiac Enzymes 01/09/21 Range/Units 15:40 CK-MB (CK-2) 26.2 H (0.0-4.0) ng/mL Lipids 01/09/21 Range/Units 15:40 Triglycerides 116 (2-149) mg/dL Cholesterol 346 H (50-199) mg/dL HDL Cholesterol 46 (40-59) mg/dL Cholesterol/HDL Ratio 7.52 % CBC 01/10/21 Range/Units 05:46 WBC 8.6 (4.5-11.0) K/mm3 RBC 4.17 (3.65-5.03) M/mm3 Hgb 12.7 D (10.1-14.3) gm/dl Hct 37.4 D (30.3-42.9) % Plt Count 249 (140-440) K/mm3 Lymph # (Auto) 2.3 (1.2-5.4) K/mm3 [place] # (Auto) 1.0 H (0.0-0.8) K/mm3 Eos # (Auto) 0.0 (0.0-0.4) K/mm3 Baso # (Auto) 0.0 (0.0-0.1) K/mm3 Comprehensive Metabolic Panel 01/09/21 01/10/21 Range/Units 15:40 05:46 Sodium 128 L 126 L (137-145) mmol/L Potassium 4.4 4.3 (3.6-5.0) mmol/L Chloride 90.6 L 89.9 L (98-107) mmol/L Carbon Dioxide 28 25 (22-30) mmol/L BUN 13 12 (7-17) mg/dL Creatinine 0.7 0.6 (0.6-1.2) mg/dL Glucose 107 H 105 H (65-100) mg/dL Calcium 8.9 8.6 (8.4-10.2) mg/dL
--- NOTE | 2021-01-10 15:18 | Progress Note ---
Assessment and Plan Assessment and plan: -CCM, cardiology consulted, appreciate recommendations -S/p Aggrastat -Aspirin, clopidogrel -s/p nitroglycerin -Continue antihypertensive regimen, titrate as needed -Continue cardioprotective regimen -CC diet -Trend BMP DVT/GI prophylaxis: PPI, SCDs to bilateral actions while in bed, Lovenox subcu Dispo: Transfer to floor The high probability of a clinically significant, sudden or life threatening d eterioration of the [cardio] system(s) required my full and direct attention, intervention and personal management. The aggregate critical care time was [35] minutes. This time is in addition to time spent performing reported procedures but includes the following: [x] Data Review and interpretation [x] Patient assessment and monitoring of vital signs [x] Documentation [x] Medication orders and management History Interval history: This is a 50-year-old female with hypertension, obesity hypoventilation syndrome, asthma, and fibromyalgia who presents the emergency department on 01/09 with reports of chest pain 1 day prior to presentation rated a 9/10 described as a constant burning and crushing in nature pain associated with shortness of breath, radiated to the back and right upper extremity which worsens with exertion and not relieved by stress via EMS. Patient underwent an EKG in the emergency department revealed ST elevation MA patient was found to have clinical symptoms consistent with diastolic CHF. Cardiology was consulted and the p atient was taken to [facility] for surgical intervention. Patient was admitted to hospital service in the ICU with consults to [facility]. Patient received 1 ASHLEY to right coronary artery and a catheter thrombectomy for extensive intraluminal thrombus. She was placed on Aggrastat for 18 hours due to intraluminal thrombus. 01/10: Patient Aggrastat infusion ends at 2:30 PM today and she will be transferred to to the telemetry floor per cardiology. Patient does not complain of any chest pain. No acute events reported overnight. Patient has been started on a cardiac diet and titrated off nitroglycerin drip. NSTEMI s/p thrombectomy and ASHLEY x1 to RCA Hyponatremia Hypochloremia Rhabdomyolysis Diastolic CHF hyperlipidemia Hypertension Obesity hypoventilation syndrome Asthma Fibromyalgia Hospitalist Physical - Constitutional Vitals: Temp Pulse Resp BP Pulse Ox 98.5 F 91 H 17 110/68 98 01/10/21 12:00 01/10/21 13:20 01/10/21 13:20 01/10/21 13:20 01/10/21 13:20 General appearance: Present: no acute distress, obese - EENT Eyes: Present: PERRL, EOM intact - Neck Neck: Present: normal ROM - Respiratory Respiratory effort: normal Respiratory: bilateral: CTA - Cardiovascular Rhythm: regular Heart Sounds: Present: S1 & S2. Absent: systolic murmur, diastolic murmur - Extremities Extremities: no ischemia, pulses intact, pulses symmetrical, No edema, normal temperature, normal color, Full ROM Peripheral Pulses: within normal limits - Abdominal General gastrointestinal: soft, non-tender, non-distended, normal bowel sounds - Integumentary Integumentary: Present: warm, dry - Psychiatric Psychiatric: cooperative - Neurologic Neurologic: CNII-XII intact, no focal deficits, moves all extremities - Allied Health Allied health notes reviewed: nursing, PT HEART Score - HEART Score Troponin: Troponin T 1.520 ng/mL (0.00-0.029) H* 01/10/21 05:46 Results - Labs CBC & Chem 7: 01/10/21 05:46 01/10/21 05:46 Labs: Laboratory Last Values WBC 8.6 K/mm3 (4.5-11.0) 01/10/21 05:46 RBC 4.17 M/mm3 (3.65-5.03) 01/10/21 05:46 Hgb 12.7 gm/dl (10.1-14.3) D 01/10/21 05:46 Hct 37.4 % (30.3-42.9) D 01/10/21 05:46 MCV 90 fl (79-97) 01/10/21 05:46 MCH 30 pg (28-32) 01/10/21 05:46 MCHC 34 % (30-34) 01/10/21 05:46 RDW 14.7 % (13.2-15.2) 01/10/21 05:46 Plt Count 249 K/mm3 (140-440) 01/10/21 05:46 Lymph % (Auto) 27.2 % (13.4-35.0) 01/10/21 05:46 [place] % (Auto) 11.7 % (0.0-7.3) H 01/10/21 05:46 Eos % (Auto) 0.3 % (0.0-4.3) 01/10/21 05:46 Baso % (Auto) 0.3 % (0.0-1.8) 01/10/21 05:46 Lymph # (Auto) 2.3 K/mm3 (1.2-5.4) 01/10/21 05:46 [place] # (Auto) 1.0 K/mm3 (0.0-0.8) H 01/10/21 05:46 Eos # (Auto) 0.0 K/mm3 (0.0-0.4) 01/10/21 05:46 Baso # (Auto) 0.0 K/mm3 (0.0-0.1) 01/10/21 05:46 Seg Neutrophils % 60.5 % (40.0-70.0) 01/10/21 05:46 Seg Neutrophils # 5.2 K/mm3 (1.8-7.7) 01/10/21 05:46 PT 12.4 Sec. (12.2-14.9) 01/09/21 10:43 INR 0.94 (0.87-1.13) 01/09/21 10:43 APTT 35.7 Sec. (24.2-36.6) 01/09/21 10:43 Sodium 126 mmol/L (137-145) L 01/10/21 05:46 Potassium 4.3 mmol/L (3.6-5.0) 01/10/21 05:46 Chloride 89.9 mmol/L (98-107) L 01/10/21 05:46 Carbon Dioxide 25 mmol/L (22-30) 01/10/21 05:46 Anion Gap 15 mmol/L 01/10/21 05:46 BUN 12 mg/dL (7-17) 01/10/21 05:46 Creatinine 0.6 mg/dL (0.6-1.2) 01/10/21 05:46 Estimated GFR > 60 ml/min 01/10/21 05:46 BUN/Creatinine Ratio 20 % 01/10/21 05:46 Glucose 105 mg/dL (65-100) H 01/10/21 05:46 POC Glucose 101 mg/dL (70-105) 01/09/21 17:47 Calcium 8.6 mg/dL (8.4-10.2) 01/10/21 05:46 Total Creatine Kinase 1585 units/L (30-135) H 01/09/21 15:40 CK-MB (CK-2) 26.2 ng/mL (0.0-4.0) H 01/09/21 15:40 CK-MB (CK-2) Rel Index 1.6 (0-4) 01/09/21 15:40 Troponin T 1.520 ng/mL (0.00-0.029) H* 01/10/21 05:46 NT-Pro-B Natriuret Pep 2867 pg/mL (0-450) H 01/09/21 15:40 Triglycerides 116 mg/dL (2-149) 01/09/21 15:40 Cholesterol 346 mg/dL (50-199) H 01/09/21 15:40 LDL Cholesterol Direct 281 mg/dL (50-130) H 01/09/21 15:40 HDL Cholesterol 46 mg/dL (40-59) 01/09/21 15:40 Cholesterol/HDL Ratio 7.52 % 01/09/21 15:40 Salas/IV: Voiding Method External Female Catheter Active Medications - Current Medications Current Medications: Generic Name Dose Route Start Last Admin Trade Name Freq PRN Reason Stop Dose Admin Amlodipine Besylate 10 mg 01/09/21 15:00 01/10/21 09:13 Amlodipine 10 Mg Tab PO Not Given QDAY [facility] Aspirin 325 mg 01/10/21 10:00 01/10/21 09:12 Aspirin Ec 325 Mg Tab PO 325 mg QDAY [facility] Administration Atorvastatin Calcium 40 mg 01/09/21 22:00 01/09/21 21:31 Atorvastatin 40 Mg Tab PO 40 mg QHS [facility] Administration Clopidogrel Bisulfate 75 mg 01/10/21 10:00 01/10/21 09:25 Clopidogrel 75 Mg Tab PO 75 mg QDAY [facility] Administration Enoxaparin Sodium 40 mg 01/10/21 22:00 Enoxaparin 40 Mg/0.4 Ml Inj SUB-Q QDAY@2200 [facility] Protocol Famotidine 40 mg 01/10/21 22:00 Famotidine 20 Mg Tab PO QHS [facility] Hydrochlorothiazide 25 mg 01/10/21 10:00 01/10/21 09:38 Hydrochlorothiazide 25 Mg Tab PO Not Given QDAY [facility] Isosorbide Mononitrate 30 mg 01/11/21 10:00 Isosorbide Mononitrate Er 30 Mg Tab PO QDAY [facility] Melatonin 5 mg 01/10/21 22:00 Melatonin 5 Mg Tab PO QHS PRN Sleep Metoprolol Tartrate 50 mg 01/09/21 13:00 01/10/21 05:20 Metoprolol Tartrate 50 Mg Tab PO 50 mg Q8H [facility] Administration Sodium Chloride 10 ml 01/09/21 22:00 01/10/21 09:38 Sodium Chloride 0.9% 10 Ml Flush Syringe IV 10 ml BID GIDEON Administration Sodium Chloride 10 ml 01/09/21 14:00 Sodium Chloride 0.9% 10 Ml Flush Syringe IV PRN PRN LINE FLUSH Tramadol HCl 50 mg 01/09/21 12:38 01/09/21 19:36 Tramadol 50 Mg Tab PO 50 mg Q4H PRN Administration Pain, Mild (1-3)
[2021-01-10] MEDS ORDERED: MELATONIN 5 MG TAB PO PRN (22:00)
[2021-01-10] MEDS ORDERED: ENOXAPARIN 40 MG/0.4 ML INJ SUB-Q SCH (22:00)
[2021-01-10] MEDS ORDERED: FAMOTIDINE 20 MG TAB PO SCH (22:00)
[2021-01-11] MEDS: METOPROLOL TARTRATE 50 MG TAB PO SCH (06:30)
[2021-01-11 07:49] LABS: Hematocrit 37.3 % (30.3-42.9); Hemoglobin 12.7 gm/dl (10.1-14.3); Mean Corpuscular HGB Conc 34 % (30-34); Mean Corpuscular Volume 89 fl (79-97); Platelet Count 229 K/mm3 (140-440); Red Blood Count 4.21 M/mm3 (3.65-5.03); Red Cell Distribution Width 14.7 % (13.2-15.2)
[2021-01-11 08:06] VITALS: BP 106/61
[2021-01-11 08:09] LABS: Blood Urea Nitrogen 11 mg/dL (7-17); Calcium 9.1 mg/dL (8.4-10.2); Hemolysis Index 34
[2021-01-11 08:12] LABS: BUN/Creatinine Ratio 18
[2021-01-11] MEDS: CLOPIDOGREL 75 MG TAB PO SCH (10:05)
[2021-01-11] MEDS: ASPIRIN EC 325 MG TAB PO SCH (10:05)
--- NOTE | 2021-01-11 10:07 | Progress Note ---
Assessment and Plan - Patient Problems (1) STEMI (ST elevation myocardial infarction) Current Visit: Yes Status: Acute Plan to address problem: Acute inferior STEMI s/p PCI of the right coronary artery. echocardiogram reports a LVEF 45-50%. Okay for discharge on guideline directed medical therapy including dual oral antiplatelet therapy with aspirin and plavix. As outpatient, we will follow up on her borderline stenosis of the mid circumfle x artery, options will be conservative clinical follow-up versus staged, FFR directed coronary intervention. Subjective Date of service: 01/11/21 Interval history: Patient is resting in bed and appears comfortable. She denies chest pain. Objective Vital Signs Temp Pulse Resp BP BP Pulse Ox 01/11/21 08:06 97.5 F L 01/11/21 07:53 81 98 01/11/21 07:52 86 106/61 98 01/11/21 06:30 94 H 01/11/21 04:19 98.2 F 88 16 102/62 99 01/11/21 00:00 98.0 F 88 16 102/65 100 01/10/21 23:43 98.6 F 45 L 16 91/52 98 01/10/21 22:08 113 H 01/10/21 19:55 99.5 F 112 H 16 129/67 97 01/10/21 17:30 119 H 19 79/53 97 01/10/21 17:20 108 H 19 79/53 01/10/21 17:10 114 H 11 L 85/52 98 01/10/21 17:00 102 H 18 107/73 88 01/10/21 16:50 101 H 16 107/73 93 01/10/21 16:40 98 H 15 110/75 94 01/10/21 16:30 100 H 17 124/83 99 01/10/21 16:20 92 H 15 124/83 97 01/10/21 16:10 95 H 15 121/77 95 01/10/21 16:00 97.7 F 96 H 13 121/77 99 01/10/21 15:50 103 H 27 H 102/75 97 01/10/21 15:40 100 H 15 107/72 100 01/10/21 15:38 107/72 100 01/10/21 15:20 83 16 107/72 99 01/10/21 15:10 83 17 98/74 100 01/10/21 15:00 83 19 98/74 100 01/10/21 14:50 88 20 100/67 99 01/10/21 14:40 102 H 23 107/73 98 01/10/21 14:30 86 18 107/73 100 01/10/21 14:20 89 21 118/83 100 01/10/21 14:10 102 H 18 113/71 100 01/10/21 14:00 96 H 20 113/71 98 01/10/21 13:50 99 H 22 108/68 100 01/10/21 13:40 102 H 20 110/70 100 01/10/21 13:30 100 H 19 110/70 100 01/10/21 13:20 91 H 17 110/68 98 01/10/21 13:10 94 H 22 97/63 98 01/10/21 13:00 95 H 22 100/70 98 01/10/21 12:50 92 H 20 92/47 100 01/10/21 12:40 102 H 20 106/69 92 01/10/21 12:30 86 14 106/69 97 01/10/21 12:20 99 H 16 100/70 98 01/10/21 12:10 92 H 20 98/66 100 01/10/21 12:00 98.5 F 92 H 18 98/66 99 01/10/21 11:50 91 H 23 100/72 100 01/10/21 11:40 91 H 12 100/72 98 01/10/21 11:30 94 H 18 100/72 100 01/10/21 11:20 95 H 13 110/77 100 01/10/21 11:10 85 13 106/75 87 01/10/21 11:00 91 H 16 106/75 100 01/10/21 10:50 90 15 98/70 100 01/10/21 10:40 86 15 101/72 97 01/10/21 10:30 80 15 101/72 96 01/10/21 10:20 89 14 93/61 91 01/10/21 10:10 92 H 17 125/59 100 - Physical Examination General: No Apparent Distress HEENT: Positive: PERRL Neck: Positive: trachea midline Cardiac: Positive: Reg Rate and Rhythm Lungs: Positive: Decreased Breath Sounds Neuro: Positive: Grossly Intact Abdomen: Positive: Soft Extremities: Absent: edema - Labs and Meds CBC 01/11/21 Range/Units 07:01 WBC 5.4 (4.5-11.0) K/mm3 RBC 4.21 (3.65-5.03) M/mm3 Hgb 12.7 (10.1-14.3) gm/dl Hct 37.3 (30.3-42.9) % Plt Count 229 (140-440) K/mm3 Comprehensive Metabolic Panel 01/11/21 Range/Units 07:01 Sodium 127 L (137-145) mmol/L Potassium 4.7 (3.6-5.0) mmol/L Chloride 92.3 L (98-107) mmol/L Carbon Dioxide 28 (22-30) mmol/L BUN 11 (7-17) mg/dL Creatinine 0.6 (0.6-1.2) mg/dL Glucose 100 (65-100) mg/dL Calcium 9.1 (8.4-10.2) mg/dL
--- NOTE | 2021-01-11 11:40 | Discharge Summary ---
Providers - Providers Date of Admission: 01/09/21 12:37 Date of discharge: 01/11/21 Attending physician: BIBI JOHNSON MD 01/09/21 Consult to Cardiac Rehabilitation [CONS] Routine Reason For Exam: post pci Primary care physician: ACCOUNT TECHNICIAN Hospitalization Reason for admission: STEMI, obesity, diastolic CHF, JILLIAN Condition: Serious Hospital course: This is a 50-year-old female with hypertension, obesity hypoventilation syndrome, asthma, and fibromyalgia who presents the emergency department on 01/09 with reports of chest pain 1 day prior to presentation rated a 9/10 described as a constant burning and crushing in nature pain associated with shortness of breath, radiated to the back and right upper extremity which worsens with exertion and not relieved by stress via EMS. Patient underwent an EKG in the emergency department revealed ST elevation [place] patient was found to have clinical symptoms consistent with diastolic CHF. Cardiology was consulted and the patient was taken to [facility] for surgical intervention. Patient was admitted to hospital service in the ICU with consults to [facility]. Patient received 1 ASHELY to right coronary artery and a catheter thrombectomy for extensive intraluminal thrombus. She was placed on Aggrastat for 18 hours due to intraluminal thrombus. 01/10: Patient Aggrastat infusion ends at 2:30 PM today and she will be transferred to to the telemetry floor per cardiology. Patient does not complain of any chest pain. No acute events reported overnight. Patient has been started on a cardiac diet and titrated off nitroglycerin drip. NSTEMI s/p thrombectomy and ASHLEY x1 to RCA Hyponatremia Hypochloremia Rhabdomyolysis Diastolic CHF hyperlipidemia Hypertension Obesity hypoventilation syndrome Asthma Fibromyalgia Patient was seen and evaluated this morning, patient was off oxygen. No chest pain or SOB. Patient was cleared by cardiology for discharge. Patient was d ischarged with guideline directed CAD treatment. Patient's BP was on the low side of normal and no ARB/ACEI, will follow with cardiology in the office and will be added if needed. Patient was hemodynamically stable. Disposition: - TO HOME OR SELFCARE Final Discharge Diagnosis (Prints w/discharge instructions): STEMI status post PCI Time spent for discharge: 32 minutes - Discharge Diagnoses (1) Diastolic CHF Status: Acute Qualifiers: Heart failure chronicity: acute Qualified Code(s): I50.31 - Acute diastolic (congestive) heart failure (2) Hyperlipidemia Status: Acute Qualifiers: Hyperlipidemia type: mixed hyperlipidemia Qualified Code(s): E78.2 - Mixed hyperlipidemia (3) Obesity hypoventilation syndrome Status: Acute (4) STEMI (ST elevation myocardial infarction) Status: Acute Core Measure Documentation - Palliative Care Palliative Care/ Comfort Measures: Not Applicable - Core Measures Any of the following diagnoses?: acute VT - Acute VT Discharge Requirements Aspirin at discharge: Yes NICHOLAS/ARB for LVSD if EF <40%: No Reason for no NICHOLAS/ARB: Hypotension Beta twyla at discharge: Yes Statin for LDL = or >100 mg/dl on DC: Yes Exam - Physical Exam Narrative exam: Not in cardiopulmonary distress. The patient is obese. Vital signs as documented. Head exam is unremarkable. No scleral icterus . Neck is without jugular venous distension, thyromegaly, or carotid bruits. Lungs are clear to auscultation. Cardiac exam reveals regular rate and Rhythm. Abdominal exam reveals normal bowel sounds, nontender, no organomegaly. Extremities are nonedematous and both femoral and pedal pulses are normal. MEDICAL GRADE SHOEMAKER: Alert and oriented 3. No focal weakness. - Constitutional Vitals: Temp Pulse Resp BP Pulse Ox 97.5 F L 88 16 106/61 98 01/11/21 08:06 01/11/21 10:00 01/11/21 04:19 01/11/21 07:52 01/11/21 07:53 Plan Activity: no restrictions Weight Bearing Status: Full Weight Bearing Diet: low cholesterol Follow up with: PRIMARY MD LEXI [Primary Care Provider] - 7 Days МАРИЯ HOOVER MD [Staff Physician] - 7 Days Forms: CardCath PCI D/C Instructions, Discharge Signature Page Prescriptions: AtorvaSTATin [Lipitor] 40 mg PO QHS #30 tablet Aspirin EC [Ecotrin] 325 mg PO QDAY #30 tablet ISOSORBIDE MONOnitrate [Imdur ER] 30 mg PO QDAY #30 tablet Metoprolol [Lopressor TAB] 50 mg PO BID #60 tablet Clopidogrel [Plavix] 75 mg PO QDAY #30 tablet
--- NOTE | 2021-01-11 12:04 | Electrocardiograph Report ---
[facility] Test Date: 2021-01-10 Test Time: 08:33:10 Pat Name: SAMANTHA CARDENAS Department: Room: A484 1 Gender: F Electronics Mechanic: JOSE ALFREDO : 1970 Requested By: МАРИЯ HOOVER Order Number: [id number] Reading MD: Vitaliy Gasca Measurements Intervals [place] Rate: 78 P: 59 LA: 159 QRS: -8 QRSD: 82 T: 78 QT: 377 QTc: 430 Interpretive Statements Sinus rhythm Multiple premature complexes, vent & supraven Probable inferior infarct, recent Compared to ECG 01/09/2021 22:52:55 Ventricular premature complex(es) no longer present Myocardial infarct finding still present Electronically Signed On 01-11-2021 12:04:23 EDT by Vitaliy Gasca
== END 2021-01-11 14:34 | disposition home or self-care (01) | DRG 246 ==
LOC: ED 10:10 → CC1 12:37 → 4A 01-10 17:54
PROVIDERS: ADMIT Internal Medicine; ATTEND Internal Medicine
PROC: 027034Z Dilation of Coronary Artery, One Artery with Drug-eluting Intraluminal Device, Percutaneous Approach (ICD-10-PCS; principal; 2021-01-09)
PROC: 02C03ZZ Extirpation of Matter from Coronary Artery, One Artery, Percutaneous Approach (ICD-10-PCS; 2021-01-09)
PROC: 4A023N7 Measurement of Cardiac Sampling and Pressure, Left Heart, Percutaneous Approach (ICD-10-PCS; 2021-01-09)
PROC: B2111ZZ Fluoroscopy of Multiple Coronary Arteries using Low Osmolar Contrast (ICD-10-PCS; 2021-01-09)
PROC: B2151ZZ Fluoroscopy of Left Heart using Low Osmolar Contrast (ICD-10-PCS; 2021-01-09)
DX: I21.19 ST elevation (STEMI) myocardial infarction involving other coronary artery of inferior wall (principal); I50.31 Acute diastolic (congestive) heart failure; E87.1 Hypo-osmolality and hyponatremia; M62.82 Rhabdomyolysis; E66.2 Morbid (severe) obesity with alveolar hypoventilation; I11.0 Hypertensive heart disease with heart failure; J45.909 Unspecified asthma, uncomplicated; Z20.822 Contact with and (suspected) exposure to COVID-19; Z88.8 Allergy status to other drugs, medicaments and biological substances; M79.7 Fibromyalgia; Z68.38 Body mass index [BMI] 38.0-38.9, adult; E78.2 Mixed hyperlipidemia; E87.8 Other disorders of electrolyte and fluid balance, not elsewhere classified
CPT/HCPCS: 36415; 71045; 80048; 80061; 82550; 82553; 82962; 83880; 84484; 85025; 85027; 85610; 85730; 90686; 92941; 93005; 93306; 93454; G0378; A9270-GY; C1725; C1757; C1760; C1769; C1874; C1887; C1894; C9606; J0171; J0360; J0461; J1644; J1650; J2250; J2370; J2405; J3010; J3246; J7040; Q9967; U0003

== ENCOUNTER 2021-06-03 08:30 | Inpatient (IN) | payer OTHER, SELFPAY ==
[2021-06-03] MEDS ORDERED: NITROGLYCERIN 0.4 MG TAB SUBL SL ONE (12:17)
[2021-06-03] MEDS ORDERED: ONDANSETRON 4 MG/2 ML INJ IV ONE (12:18)
[2021-06-03] MEDS ORDERED: MORPHINE 4 MG/1 ML INJ IV ONE (12:18)
--- NOTE | 2021-06-03 12:22 | Event Note ---
Date: 06/03/21 The patient was evaluated in the emergency department for symptoms described in the history of present illness. He/she was evaluated in the context of the global COVID-19 pandemic, which necessitated consideration that the patient might be at risk for infection with the virus that causes COVID-19. Institutional protocols and algorithms that pertain to the evaluation of patients at risk for COVID-19 are in a state of rapid change based on information released by regulatory bodies including the CDC and federal and state organizations. These policies and algorithms were followed during the patient's care in the emergency department. Please note that these policies, procedures and recommendations changed on a rapid basis. Cardiology: [facility] Past medical history: Hypertension, obesity hypoventilation syndrome, asthma, fibromyalgia, CAD with stents. Patient had an NSTEMI at this hospital, status post thrombectomy, and drug- eluting stent x1 to the RCA in January of this year. She has not received her Covid vaccination. She presents to the ER today with complaints of chest pain. The chest pain is central. There is nausea and vomiting. There is shortness of breath. She denies the possibility of . She denies loss of taste and smell. She says it feels like her prior MT. Patient endorses compliance with her medications. Patient endorses that she received aspirin today by EMS. Patient denies travel, surgery, immobilization, DVT and pulmonary embolism risk factors. Place patient on lead fabricator. Obtain appropriate laboratory studies and EKG. Initial EKG reviewed and appreciated. EKG #1 interpreted at 12: 09 Sinus rhythm, tachycardia, rate 118 bpm. Normal axis, normal P wave axis. Multiple PVCs. Q waves noted in the inferior leads. Nonspecific ST abnormality aVL. This is an abnormal EKG. This is not a STEMI. Q waves noted in the inferior leads. Stat right-sided EKG is requested. Anticipate admission for concerning chest pain.
--- NOTE | 2021-06-03 12:28 | Emergency Department Report ---
ED Chest Pain HPI - General Chief Complaint: Chest Pain Stated Complaint: CHEST PAIN PUI?: Yes Source: patient, EMS ( EMS documentation not available at time of chart dictation ), RN notes reviewed, old records reviewed Mode of arrival: Stretcher Limitations: Physical Limitation - History of Present Illness Initial Comments: The patient was evaluated in the emergency department for symptoms described in the history of present illness. He/she was evaluated in the context of the global COVID-19 pandemic, which necessitated consideration that the patient might be at risk for infection with the virus that causes COVID-19. Institutional protocols and algorithms that pertain to the evaluation of patients at risk for COVID-19 are in a state of rapid change based on information released by regulatory bodies including the CDC and federal and state organizations. These policies and algorithms were followed during the patient's care in the emergency department. Please note that these policies, procedures and recommendations changed on a rapid basis. Cardiology: [facility] Past medical history: NSTEMI, status post thrombectomy, and drug-eluting stents x1 to the RCA, coronary artery disease, fibromyalgia, asthma, obesity hypoven tilation syndrome, hypertension, diastolic CHF, hyperlipidemia, rhabdomyolysis This is a 50-year-old female. She presents to the ER today with complaint of constant chest pain, present since yesterday. There is nausea and vomiting. There is chronic shortness of breath. The patient denies fever, loss of taste and smell. She denies hematemesis and bright red blood per rectum. She denies travel, surgery, leg pain and leg swelling. She denies recent hospitalizations. She has been taking her aspirin on a regular basis. She also reports that she is supposed to see her cryptologic technician technical in a few months. MD Complaint: chest pain -: Gradual, hour(s) Pain Location: substernal Pain Radiation: none Severity: severe Quality: aching, heaviness Consistency: constant Improves With: rest Worsens With: palpation re: nausea, vomting Aspirin use within the Past 7 Days: (1) Yes - Related Data Home Medications Medication Instructions Recorded Confirmed Last Taken Baclofen [Lioresal] 10 mg PO BID PRN 01/09/21 01/09/21 01/08/21 22:00 HYDROcodone/Acetaminop 7.5-325 7.5 mg PO Q6H PRN 01/09/21 01/09/21 Unknown [[place]incoln 7.5-325 mg per 15 ML] Previous Rx's Medication Instructions Recorded Last Taken Type Aspirin EC [Ecotrin] 325 mg PO QDAY #30 tablet 01/11/21 Unknown Rx AtorvaSTATin [Lipitor] 40 mg PO QHS #30 tablet 01/11/21 Unknown Rx Clopidogrel [Plavix] 75 mg PO QDAY #30 tablet 01/11/21 Unknown Rx ISOSORBIDE MONOnitrate [Imdur ER] 30 mg PO QDAY #30 tablet 01/11/21 Unknown Rx Metoprolol [Lopressor TAB] 50 mg PO BID #60 tablet 01/11/21 Unknown Rx Allergies Allergy/AdvReac Type Severity Reaction Status Date / Time lisinopril Allergy Swelling Verified 01/09/21 14:37 Heart Score - HEART Score History: Moderately suspicious EKG: Non-specific Age: 45-65 Risk factors: > 3 risk factors or hx of atherosclerotic disease Troponin: < normal limit HEART Score: 5 - EKG Read Time Time EKG Completed: 12:09 EKG Read Time: 12:10 - Critical Actions Critical Actions: 4-6 pts:12-16.6% risk of adverse cardiac event. Should be admitted ED Review of Systems ROS: Stated complaint: CHEST PAIN Other details as noted in HPI Constitutional: malaise, weakness Eyes: denies: eye discharge ENT: denies: epistaxis Respiratory: cough, shortness of breath Cardiovascular: chest pain Gastrointestinal: nausea, vomiting. denies: hematemesis, melena, hematochezia Neurological: weakness Hematological/Lymphatic: denies: easy bleeding ED Past Medical Hx - Past Medical History Hx Hypertension: Yes Hx Asthma: Yes Additional medical history: fibromyalgia - Surgical History Hx Coronary Stent: Yes Additional Surgical History: tonsilectomy - Social History Smoking Status: Never Smoker - Medications Home Medications: Home Medications Medication Instructions Recorded Confirmed Last Taken Type Baclofen [Lioresal] 10 mg PO BID PRN 01/09/21 01/09/21 01/08/21 22:00 History HYDROcodone/Acetaminop 7.5-325 7.5 mg PO Q6H PRN 01/09/21 01/09/21 Unknown History [Lincoln 7.5-325 mg per 15 ML] Aspirin EC [Ecotrin] 325 mg PO QDAY #30 tablet 01/11/21 Unknown Rx AtorvaSTATin [Lipitor] 40 mg PO QHS #30 tablet 01/11/21 Unknown Rx Clopidogrel [Plavix] 75 mg PO QDAY #30 tablet 01/11/21 Unknown Rx ISOSORBIDE MONOnitrate [Imdur ER] 30 mg PO QDAY #30 tablet 01/11/21 Unknown Rx Metoprolol [Lopressor TAB] 50 mg PO BID #60 tablet 01/11/21 Unknown Rx ED Physical Exam - General Limitations: Other (Chaperoned by Ashlyn De León) General appearance: alert, anxious, in distress, obese - Head Head exam: Present: atraumatic, normocephalic - Eye Eye exam: Present: normal appearance, EOMI. Absent: nystagmus - ENT ENT exam: Present: normal exam, normal orophraynx, mucous membranes moist, normal external ear exam - Neck Neck exam: Present: normal inspection, full ROM. Absent: tenderness, meningismus - Respiratory Respiratory exam: Present: rales, decreased breath sounds, other (Faint rales noted in the right lower hemithorax). Absent: respiratory distress, stridor - Cardiovascular Cardiovascular Exam: Present: normal rhythm, tachycardia, normal heart sounds. Absent: bradycardia, irregular rhythm, systolic murmur, diastolic murmur, rubs, gallop - GI/Abdominal GI/Abdominal exam: Present: soft. Absent: distended, tenderness, guarding, rebound, rigid, pulsatile mass - Extremities Exam Extremities exam: Present: normal inspection, full ROM, pedal edema (1+ edema noted in the bilateral lower extremity), other (2+ pulses noted in the bilateral upper and lower extremities. There is no palpable cord. negative Homans sign. Muscular compartments are soft. The pelvis is stable.). Absent: calf tenderness - Back Exam Back exam: Present: normal inspection. Absent: tenderness, CVA tenderness (R), CVA tenderness (L), paraspinal tenderness, vertebral tenderness - Neurological Exam Neurological exam: Present: alert, oriented X3, other (No facial droop. Tongue midline. Extraocular movements intact bilaterally. Facial sensation intact to light touch in V1, V2, V3 distribution bilaterally. 5 and a 5 strength in 4 extremities. Sensation intact to light touch in 4 extremities.). Absent: motor sensory deficit - Psychiatric Psychiatric exam: Present: anxious - Skin Skin exam: Present: warm, dry, intact, normal color. Absent: rash ED Course Vital Signs 06/03/21 12:17 Pulse Rate 121 H Respiratory 22 Rate Blood Pressure 105/84 O2 Sat by Pulse 93 Oximetry - Reevaluation(s) Reevaluation #1: 06/03/21 13:05 Differential diagnosis, including but not limited to: Unstable angina, pulmonary embolism, pneumonia, congestive heart failure, electrolyte derangement, Covid, costochondritis, COVID-19 Assessment and plan: 50-year-old female, with known history of coronary artery disease, and multiple medical comorbidities, who presents with oral temperature of 98 degrees, chest wall pain, chest pain, nausea vomiting, mild hypoxia, not COVID-19 vaccinated. Moderate to high risk for major adverse cardiac event as per heart score. EKG #1 not consistent with STEMI. EKG #2, right-sided EKG leads, not consistent with STEMI. Repeat EKG ordered for 13: 30 p.m. Give morphine for pain, hold nitroglycerin given inferior EKG findings. Obtain stat x-ray of the chest. Equal pulses in the upper and lower extremities. As a courtesy, we will reach out to her primary cryptologic technician technical. The patient denies DVT and pulmonary embolism risk factors. However, given obesity, tachycardia, chest pain, shortness of breath, and hypoxia, PE is on the differential diagnosis. Heparin will treat, but may require diagnostic imaging, therefore, D-dimer pending. However, patient denies DVT and pulmonary embolism risk factors. She is low risk by Wells criteria for pulmonary embolism 06/03/21 13:42 EKG #3 interpreted at 13: 29 Sinus rhythm, tachycardia, rate 113 bpm. Normal axis, normal P wave axis, QTC 450 ms, PVCs. Q waves noted in the inferior leads. This is an abnormal EKG. This is not a STEMI. X-ray suggest multilobar pneumonia, Covid versus CHF. Given that patient is not vaccinated, complaining of chest pain, has reproducible chest wall pain, hypoxia, and focal pulmonary findings, at this point time, I think acute coron yadiel syndrome is less likely, costochondritis, with pneumonia/Covid/CHF is more likely. Hyponatremia is likely hypervolemic hyponatremia. CT scan of the chest ordered to better differentiate. D-dimer elevated, therefore nuclear medicine study ordered. We will medicate patient empirically with Lasix, Decadron, placed on isolation, and continue supplemental oxygen. We will also cover empirically with antibiotics. Given negative troponin, unchanged EKG, results of existing diagnostics, I think acute coronary syndrome is less likely, and therefore, and not requesting emergent cardiology consultation. Hospital physician, Dr. Vera Andres to admit to IMS service 06/03/21 13:51 Discussed history, physical, laboratory studies and pending imaging studies/available imaging studies with cardiology on-call, Dr. Maddox, and the aforementioned hospital physician. Dr. Maddox/[facility] will follow in consultation. Hospital physician, Dr. Vera Andres to admit to [facility] - EJ/Peripheral Line Neck L Time Out Performed: Yes Indications: nurses unable to establis Skin Cleansed in Sterile Fashion: Yes Size: 20 Dressing Placed: Tegaderm Patient Tolerated Procedure: well ALEC score - Alec Score Age > 65: (0) No Aspirin use within the Past 7 Days: (1) Yes 3 or more CAD Risk Factors: (1) Yes 2 or more Angina events in past 24 hrs: (1) Yes Known CAD with more than 50% Stenosis: (1) Yes Elevated Cardiac Markers: (0) No ST Deviation Greater than 0.5mm: (0) No ALEC Score: 4 ED Medical Decision Making - Lab Data Result diagrams: 06/03/21 12:23 06/03/21 13:43 Vital Signs 06/03/21 12:17 Pulse Rate 121 H Respiratory 22 Rate Blood Pressure 105/84 O2 Sat by Pulse 93 Oximetry Lab Results 06/03/21 06/03/21 06/03/21 Range/Units 12:23 12:23 12:23 WBC 4.6 (4.5-11.0) K/mm3 RBC 5.44 H (3.65-5.03) M/mm3 Hgb 16.1 H (10.1-14.3) gm/dl Hct 47.4 H (30.3-42.9) % MCV 87 (79-97) fl MCH 30 (28-32) pg MCHC 34 (30-34) % RDW 14.4 (13.2-15.2) % Plt Count 178 (140-440) K/mm3 Lymph % (Auto) 10.4 L (13.4-35.0) % [place] % (Auto) 8.7 H (0.0-7.3) % Eos % (Auto) 0.0 (0.0-4.3) % Baso % (Auto) 0.1 (0.0-1.8) % Lymph # (Auto) 0.5 L (1.2-5.4) K/mm3 [place] # (Auto) 0.4 (0.0-0.8) K/mm3 Eos # (Auto) 0.0 (0.0-0.4) K/mm3 Baso # (Auto) 0.0 (0.0-0.1) K/mm3 Seg Neutrophils % 80.8 H (40.0-70.0) % Seg Neutrophils # 3.7 (1.8-7.7) K/mm3 PT 13.5 (12.2-14.9) Sec. INR 0.97 (0.87-1.13) APTT 32.0 (24.2-36.6) Sec. Sodium 128 L (137-145) mmol/L Potassium 3.4 L (3.6-5.0) mmol/L Chloride 86.9 L (98-107) mmol/L Carbon Dioxide 26 (22-30) mmol/L Anion Gap 19 mmol/L BUN 24 H (7-17) mg/dL Creatinine 1.1 (0.6-1.2) mg/dL Estimated GFR > 60 ml/min BUN/Creatinine Ratio 22 % Glucose 118 H (65-100) mg/dL Calcium 8.9 (8.4-10.2) mg/dL Total Bilirubin 0.80 (0.1-1.2) mg/dL AST 75 H (5-40) units/L ALT 19 (7-56) units/L Alkaline Phosphatase 114 (35-129) units/L Total Creatine Kinase (30-135) units/L Troponin T < 0.010 (0.00-0.029) ng/mL Total Protein 8.2 (6.3-8.2) g/dL Albumin 3.2 L (3.9-5) g/dL Albumin/Globulin Ratio 0.6 % HCG, Qual (Negative) 06/03/21 06/03/21 Range/Units 12:23 12:23 WBC (4.5-11.0) K/mm3 RBC (3.65-5.03) M/mm3 Hgb (10.1-14.3) gm/dl Hct (30.3-42.9) % MCV (79-97) fl MCH (28-32) pg MCHC (30-34) % RDW (13.2-15.2) % Plt Count (140-440) K/mm3 Lymph % (Auto) (13.4-35.0) % [place] % (Auto) (0.0-7.3) % Eos % (Auto) (0.0-4.3) % Baso % (Auto) (0.0-1.8) % Lymph # (Auto) (1.2-5.4) K/mm3 [place] # (Auto) (0.0-0.8) K/mm3 Eos # (Auto) (0.0-0.4) K/mm3 Baso # (Auto) (0.0-0.1) K/mm3 Seg Neutrophils % (40.0-70.0) % Seg Neutrophils # (1.8-7.7) K/mm3 PT (12.2-14.9) Sec. INR (0.87-1.13) APTT (24.2-36.6) Sec. Sodium (137-145) mmol/L Potassium (3.6-5.0) mmol/L Chloride (98-107) mmol/L Carbon Dioxide (22-30) mmol/L Anion Gap mmol/L BUN (7-17) mg/dL Creatinine (0.6-1.2) mg/dL Estimated GFR ml/min BUN/Creatinine Ratio % Glucose (65-100) mg/dL Calcium (8.4-10.2) mg/dL Total Bilirubin (0.1-1.2) mg/dL AST (5-40) units/L ALT (7-56) units/L Alkaline Phosphatase (35-129) units/L Total Creatine Kinase 681 H (30-135) units/L Troponin T (0.00-0.029) ng/mL Total Protein (6.3-8.2) g/dL Albumin (3.9-5) g/dL Albumin/Globulin Ratio % HCG, Qual Negative (Negative) - EKG Data -: EKG Interpreted by Me Rate: tachycardia - EKG Data 06/03/21 13:04 EKG #1 interpreted at 12: 09 Sinus rhythm, tachycardia, rate 118 bpm. Normal axis, normal P wave axis, QTC 4 4 4 ms. Numerous PVCs noted. Abnormal EKG. Not a STEMI. Q waves noted in the inferior leads. This is an abnormal EKG. This is not a STEMI. EKG #2, right-sided leads, performed and interpreted at 12: 50 Sinus rhythm, tachycardia, rate 119 bpm. Not consistent with STEMI. Q waves noted in the inferior leads. Abnormal EKG. - Radiology Data Radiology results: pending, report reviewed, image reviewed NUCLEAR MEDICINE PERFUSION LUNG SCAN INDICATION / CLINICAL INFORMATION: cp dyspnea. TECHNIQUE: 5.20 mCi of Tc-99m MAA were given by IV. COMPARISON: Chest radiograph dated 06/03/21. FINDINGS: PERFUSION: No significant perfusion defects. Patchy areas of decreased perfusion correspond to pulmonary opacities on radiograph. ADDITIONAL FINDINGS: None. IMPRESSION: 1. Low probability for pulmonary embolism. Signer Name: Jessica Hernandez MD Signed: 06/03/2021 3:45 PM Workstation Name: [email or web address] CT CHEST WITHOUT CONTRAST INDICATION / CLINICAL INFORMATION: Chest pain with dyspnea. CHF versus pneumonia versus Covid 19. TECHNIQUE: Axial CT images were obtained through the chest without contrast. All CT scans at this location are performed using CT dose reduction for ALARA by means of automated exposure control. COMPARISON: Radiograph dated 06/03/21 FINDINGS: HEART: No significant abnormality. CORONARY ARTERY CALCIFICATION: Moderate. Right coronary artery stent. THORACIC AORTA: No significant abnormality. MEDIASTINUM / CHARISSA: No significant abnormality. PLEURA: No pleural effusion. No pneumothorax. LUNGS: Moderately extensive bilateral airspace disease with groundglass densities. ADDITIONAL FINDINGS: None. UPPER ABDOMEN: No significant abnormality. SKELETAL SYSTEM: No significant abnormality. IMPRESSION: 1. Bilateral pneumonia characteristic of atypical/viral pneumonia such as Covid. Signer Name: Jessica Hernandez MD Signed: 06/03/2021 2:26 PM Workstation Name: [id number] CHEST 1 VIEW 06/03/2021 12:25 PM INDICATION / CLINICAL INFORMATION: Chest Pain. COMPARISON: 01/10/21 FINDINGS: SUPPORT DEVICES: None. HEART / MEDIASTINUM: No significant abnormality. LUNGS / PLEURA: Multifocal patchy airspace disease in both lungs. No pneumothorax. ADDITIONAL FINDINGS: No significant additional findings. IMPRESSION: 1. Patchy bilateral pneumonia which can be seen in atypical/viral pneumonia such as Covid. Signer Name: Jessica Hernandez MD Signed: 06/03/2021 12:33 PM Workstation Name: [id number] Critical Care Time: Yes Critical care time in (mins) excluding proc time.: 45 Critical care attestation.: If time is entered above; I have spent that time in minutes in the direct care of this critically ill patient, excluding procedure time. ED Disposition Clinical Impression: Acute chest pain, Hypokalemia, Hyponatremia, Acute respiratory failure with hypoxia, Suspected COVID-19 virus infection, COVID-19 vaccination not done Disposition: 09 ADMITTED INPATIENT Is pt being admited?: Yes Does the pt Need Aspirin: No Condition: Serious
[2021-06-03 12:43] LABS: Basophils % (Auto) 0.1 % (0.0-1.8); Hematocrit 47.4 % (30.3-42.9); Hemoglobin 16.1 gm/dl (10.1-14.3); Lymphocytes # (Auto) 0.5 K/mm3 (1.2-5.4); Lymphocytes % (Auto) 10.4 % (13.4-35.0); Mean Corpuscular HGB Conc 34 % (30-34); Mean Corpuscular Volume 87 fl (79-97); Monocytes # (Auto) 0.4 K/mm3 (0.0-0.8); Monocytes % (Auto) 8.7 % (0.0-7.3); Platelet Count 178 K/mm3 (140-440); Red Blood Count 5.44 M/mm3 (3.65-5.03); Red Cell Distribution Width 14.4 % (13.2-15.2)
[2021-06-03 12:51] LABS: INR 0.97 (0.87-1.13)
[2021-06-03 13:02] LABS: Alanine Aminotransferase 19 units/L (7-56); Albumin 3.2 g/dL (3.9-5); BUN/Creatinine Ratio 22; Blood Urea Nitrogen 24 mg/dL (7-17); Calcium 8.9 mg/dL (8.4-10.2); Hemolysis Index 12
[2021-06-03] MEDS ORDERED: POTASSIUM CHLORIDE ER 20 MEQ TAB PO ONE ×2 (13:07→15:16)
[2021-06-03] MEDS ORDERED: ACETAMINOPHEN 325 MG TAB PO STA (13:14)
--- NOTE | 2021-06-03 13:37 | XRay Report ---
CHEST 1 VIEW 06/03/2021 12:25 PM INDICATION / CLINICAL INFORMATION: Chest Pain. COMPARISON: 01/10/21 FINDINGS: SUPPORT DEVICES: None. HEART / MEDIASTINUM: No significant abnormality. LUNGS / PLEURA: Multifocal patchy airspace disease in both lungs. No pneumothorax. ADDITIONAL FINDINGS: No significant additional findings. IMPRESSION: 1. Patchy bilateral pneumonia which can be seen in atypical/viral pneumonia such as Covid. Signer Name: Jessica Hernandez MD Signed: 06/03/2021 1:33 PM Workstation Name: [id number]
[2021-06-03] MEDS ORDERED: dexAMETHasone 4 MG/ML VIAL IV ONE (13:39)
[2021-06-03] MEDS ORDERED: FUROSEMIDE 40 MG/4 ML INJ IV ONE (13:39)
[2021-06-03] MEDS ORDERED: AZITHROMYCIN 250 MG TAB PO ONE (13:40)
[2021-06-03] MEDS ORDERED: cefTRIAXone/NS 1 GM/50 ML 1 GM/50 ML BAG IV ONE (13:40)
[2021-06-03 14:27] LABS: C-Reactive Protein 7.9 mg/dL (0.00-1.30)
[2021-06-03] MEDS ORDERED: ONDANSETRON 4 MG/2 ML INJ ONE ×2 (14:51→15:13)
[2021-06-03] MEDS ORDERED: MORPHINE 4 MG/1 ML INJ ONE (15:13)
[2021-06-03] MEDS ORDERED: dexAMETHasone 20 MG/5 ML VIAL ONE (15:16)
--- NOTE | 2021-06-03 15:31 | Cat Scan Report ---
CT CHEST WITHOUT CONTRAST INDICATION / CLINICAL INFORMATION: Chest pain with dyspnea. CHF versus pneumonia versus Covid 19. TECHNIQUE: Axial CT images were obtained through the chest without contrast. [facility] CT [facility] are performed using CT dose reduction for ALARA by means of automated exposure control. COMPARISON: Radiograph dated 06/03/21 FINDINGS: HEART: No significant abnormality. CORONARY ARTERY CALCIFICATION: Moderate. Right coronary artery stent. THORACIC AORTA: No significant abnormality. MEDIASTINUM / CHARISSA: No significant abnormality. PLEURA: No pleural effusion. No pneumothorax. LUNGS: Moderately extensive bilateral airspace disease with groundglass densities. ADDITIONAL FINDINGS: None. UPPER ABDOMEN: No significant abnormality. SKELETAL SYSTEM: No significant abnormality. IMPRESSION: 1. Bilateral pneumonia characteristic of atypical/viral pneumonia such as Covid. Signer Name: Jessica Hernandez MD Signed: 06/03/2021 3:26 PM Workstation Name: [id number]
--- NOTE | 2021-06-03 16:49 | Nuclear Medicine Report ---
NUCLEAR MEDICINE PERFUSION LUNG SCAN INDICATION / CLINICAL INFORMATION: cp dyspnea. TECHNIQUE: 5.20 mCi of Tc-99m MAA were given by IV. COMPARISON: Chest radiograph dated 06/03/21. FINDINGS: PERFUSION: No significant perfusion defects. Patchy areas of decreased perfusion correspond to pulmon yadiel opacities on radiograph. ADDITIONAL FINDINGS: None. IMPRESSION: 1. Low probability for pulmonary embolism. Signer Name: Jessica Hernandez MD Signed: 06/03/2021 4:45 PM Workstation Name: [id number]
[2021-06-03] MEDS ORDERED: METOCLOPRAMIDE 10 MG/2 ML INJ IV PRN (22:58)
[2021-06-03] MEDS ORDERED: SODIUM CHLORIDE 0.9% 1000 ML 1,000 ML IV SCH (23:00)
--- NOTE | 2021-06-03 23:03 | History and Physical Report ---
History of Present Illness Date of examination: 06/03/21 Date of admission: 06/03/21 15:54 Chief complaint: Chest pain History of present illness: 50-year-old female with history of coronary artery disease, status post STEMI, drug-eluting stents in the RCA and, fibromyalgia asthma and obesity and hypoventilation syndrome comes in for chest pain since yesterday. Also associated nausea and vomiting. Chronic shortness of breath. No hematemesis. Patient is not vaccinated. Denies recent hospitalizations. Chest pain is intermittent in nature about 7 on a scale of 1-10. In the left precordial nonradiating. No diaphoresis. No shortness of breath. Past medical history: NSTEMI, status post thrombectomy, and recent varicella none stents x1 to the RCA, coronary artery disease, fibromyalgia, asthma, obesity hypoventilation syndrome, hypertension, diastolic CHF, hyperlipidemia, rhabdomyolysis Heart Score - HEART Score History: Moderately suspicious EKG: Non-specific Age: 45-65 Risk factors: > 3 risk factors or hx of atherosclerotic disease Troponin: < normal limit HEART Score: 5 - EKG Read Time Time EKG Completed: 12:09 EKG Read Time: 12:10 - Critical Actions Critical Actions: 4-6 pts:12-16.6% risk of adverse cardiac event. Should be admitted - Past Medical History --DC ileoileal nausea supplement hypertension: Yes --Asthma: Yes Additional medical history: fibromyalgia - Surgical History Hx Coronary Stent: Yes Additional Surgical History: tonsilectomy - Social History Smoking Status: Never Smoker Moderate discussed regarding skin large vascular injury) Anticoagulation none the direct cardioversion. Charges Synanthic. IV fluids reviewed all Review of Systems ROS: Stated complaint: CHEST PAIN Other details as noted in HPI Constitutional: malaise, weakness Eyes: denies: eye discharge ENT: denies: epistaxis Respiratory: cough, shortness of breath Cardiovascular: chest pain Gastrointestinal: nausea, vomiting. denies: hematemesis, melena, hematochezia Neurological: weakness Hematological/Lymphatic: denies: easy bleeding Medications and Allergies Allergies Allergy/AdvReac Type Severity Reaction Status Date / Time lisinopril Allergy Swelling Verified 01/09/21 14:37 Home Medications Medication Instructions Recorded Confirmed Last Taken Type Baclofen [Lioresal] 10 mg PO BID PRN 01/09/21 01/09/21 01/08/21 22:00 History HYDROcodone/Acetaminop 7.5-325 7.5 mg PO Q6H PRN 01/09/21 01/09/21 Unknown History [[place] 7.5-325 mg per 15 ML] Aspirin EC [Ecotrin] 325 mg PO QDAY #30 tablet 01/11/21 Unknown Rx AtorvaSTATin [Lipitor] 40 mg PO QHS #30 tablet 01/11/21 Unknown Rx Clopidogrel [Plavix] 75 mg PO QDAY #30 tablet 01/11/21 Unknown Rx ISOSORBIDE MONOnitrate [Imdur ER] 30 mg PO QDAY #30 tablet 01/11/21 Unknown Rx Metoprolol [Lopressor TAB] 50 mg PO BID #60 tablet 01/11/21 Unknown Rx Exam - Constitutional Vitals: Temp Pulse Resp BP Pulse Ox 105 H 31 H 126/74 97 06/03/21 18:16 06/03/21 18:01 06/03/21 18:16 06/03/21 18:01 General appearance: Present: no acute distress, well-nourished - EENT Eyes: Present: PERRL ENT: hearing intact, clear oral mucosa - Neck Neck: Present: supple, normal ROM - Respiratory Respiratory effort: normal Respiratory: bilateral: CTA - Cardiovascular Heart rate: 78 Rhythm: regular Heart Sounds: Present: S1 & S2. Absent: rub, click - Extremities Extremities: pulses symmetrical, No edema Peripheral Pulses: within normal limits - Abdominal General gastrointestinal: Present: soft, non-tender, non-distended, normal bowel sounds Female genitourinary: Present: normal - Rectal Rectal Exam: deferred - Integumentary Integumentary: Present: clear, warm, dry - Musculoskeletal Musculoskeletal: gait normal, strength equal bilaterally - Psychiatric Psychiatric: appropriate mood/affect, intact judgment & insight - Neurologic Neurologic: CNII-XII intact, moves all extremities - Allied Health Allied health notes reviewed: nursing, case management HEART Score - HEART Score EKG: Non-specific Age: 45-65 Risk factors: > 3 risk factors or hx of atherosclerotic disease Troponin: Troponin T < 0.010 ng/mL (0.00-0.029) 06/03/21 16:47 Troponin: < normal limit - Critical Actions Critical Actions: 4-6 pts:12-16.6% risk of adverse cardiac event. Should be admitted Results - Labs CBC & Chem 7: 06/04/21 07:15 06/04/21 07:15 Labs: Laboratory Last Values WBC 4.6 K/mm3 (4.5-11.0) 06/03/21 12:23 RBC 5.44 M/mm3 (3.65-5.03) H 06/03/21 12:23 Hgb 16.1 gm/dl (10.1-14.3) H 06/03/21 12:23 Hct 47.4 % (30.3-42.9) H 06/03/21 12:23 MCV 87 fl (79-97) 06/03/21 12:23 MCH 30 pg (28-32) 06/03/21 12:23 MCHC 34 % (30-34) 06/03/21 12:23 RDW 14.4 % (13.2-15.2) 06/03/21 12:23 Plt Count 178 K/mm3 (140-440) 06/03/21 12:23 Lymph % (Auto) 10.4 % (13.4-35.0) L 06/03/21 12:23 [place] % (Auto) 8.7 % (0.0-7.3) H 06/03/21 12:23 Eos % (Auto) 0.0 % (0.0-4.3) 06/03/21 12:23 Baso % (Auto) 0.1 % (0.0-1.8) 06/03/21 12:23 Lymph # (Auto) 0.5 K/mm3 (1.2-5.4) L 06/03/21 12:23 [place] # (Auto) 0.4 K/mm3 (0.0-0.8) 06/03/21 12:23 Eos # (Auto) 0.0 K/mm3 (0.0-0.4) 06/03/21 12:23 Baso # (Auto) 0.0 K/mm3 (0.0-0.1) 06/03/21 12:23 Seg Neutrophils % 80.8 % (40.0-70.0) H 06/03/21 12:23 Seg Neutrophils # 3.7 K/mm3 (1.8-7.7) 06/03/21 12:23 PT 13.5 Sec. (12.2-14.9) 06/03/21 12:23 INR 0.97 (0.87-1.13) 06/03/21 12:23 APTT 32.0 Sec. (24.2-36.6) 06/03/21 12:23 D-Dimer 900.32 ng/mlDDU (0-234) H 06/03/21 12:23 Sodium 128 mmol/L (137-145) L 06/03/21 12:23 Potassium 3.4 mmol/L (3.6-5.0) L 06/03/21 12:23 Chloride 86.9 mmol/L (98-107) L 06/03/21 12:23 Carbon Dioxide 26 mmol/L (22-30) 06/03/21 12:23 Anion Gap 19 mmol/L 06/03/21 12:23 BUN 24 mg/dL (7-17) H 06/03/21 12:23 Creatinine 1.1 mg/dL (0.6-1.2) 06/03/21 12:23 Estimated GFR > 60 ml/min 06/03/21 12:23 BUN/Creatinine Ratio 22 % 06/03/21 12:23 Glucose 114 mg/dL (65-100) H 06/03/21 13:43 Lactic Acid 1.70 mmol/L (0.7-2.0) 06/03/21 13:43 Calcium 8.9 mg/dL (8.4-10.2) 06/03/21 12:23 Ferritin 2196.0 ng/mL (10.0-200.0) H 06/03/21 13:41 Total Bilirubin 0.80 mg/dL (0.1-1.2) 06/03/21 12:23 AST 75 units/L (5-40) H 06/03/21 12:23 ALT 19 units/L (7-56) 06/03/21 12:23 Alkaline Phosphatase 114 units/L (35-129) 06/03/21 12:23 Lactate Dehydrogenase 1082 units/L (91-180) H 06/03/21 13:43 Total Creatine Kinase 681 units/L (30-135) H 06/03/21 12:23 Troponin T < 0.010 ng/mL (0.00-0.029) 06/03/21 16:47 C-Reactive Protein 7.90 mg/dL (0.00-1.30) H 06/03/21 13:43 NT-Pro-B Natriuret Pep 467.5 pg/mL (0-450) H 06/03/21 13:31 Total Protein 8.2 g/dL (6.3-8.2) 06/03/21 12:23 Albumin 3.2 g/dL (3.9-5) L 06/03/21 12:23 Albumin/Globulin Ratio 0.6 % 06/03/21 12:23 HCG, Qual Negative (Negative) 06/03/21 12:23 Short CBC 06/03/21 06/04/21 Range/Units 12:23 07:15 WBC 4.6 3.1 L (4.5-11.0) K/mm3 Hgb 16.1 H 16.6 H (10.1-14.3) gm/dl Hct 47.4 H 49.5 H (30.3-42.9) % Plt Count 178 198 (140-440) K/mm3 BMP 06/03/21 06/03/21 06/04/21 12:23 13:43 07:15 Sodium 128 L 130 L Potassium 3.4 L 4.6 D Chloride 86.9 L 90.5 L Carbon Dioxide 26 27 BUN 24 H 30 H Creatinine 1.1 1.0 Glucose 118 H 114 H 148 H Calcium 8.9 9.1 Cardiac Enzymes 06/03/21 06/03/21 06/03/21 Range/Units 12:23 12:23 15:36 Total Creatine Kinase 681 H (30-135) units/L CK-MB (CK-2) (0.0-4.0) ng/mL Troponin T < 0.010 < 0.010 (0.00-0.029) ng/mL 06/03/21 06/04/21 06/04/21 Range/Units 16:47 01:34 07:15 Total Creatine Kinase 577 H 495 H (30-135) units/L CK-MB (CK-2) 2.6 2.6 (0.0-4.0) ng/mL Troponin T < 0.010 (0.00-0.029) ng/mL Liver Function 06/03/21 06/04/21 Range/Units 12:23 07:15 Total Bilirubin 0.80 0.60 (0.1-1.2) mg/dL AST 75 H 60 H (5-40) units/L ALT 19 19 (7-56) units/L Alkaline Phosphatase 114 123 (35-129) units/L Albumin 3.2 L 3.7 L (3.9-5) g/dL Microbiology: Microbiology 06/03/21 13:43 Peripheral/Venous Blood Culture - Preliminary Culture in Progress 06/03/21 13:43 Peripheral/Venous Blood Culture - Preliminary Culture in Progress - Imaging and Cardiology EKG: report reviewed (Sinus rhythm no acute ST-T wave changes) Chest x-ray: report reviewed Imaging and Cardiology: Chest x-ray Patchy bilateral pneumonia which can be seen in atypical/viral pneumonia such as Covid Chest CT Bilateral pneumonia contrast Atypical/viral pneumonia suggest Covid Assessment and Plan Advance Directives: Yes Plan of care discussed with patient/family: Yes - Patient Problems (1) Bilateral pneumonia Current Visit: Yes Status: Acute Plan to address problem: Patient started on IV Zithromax and IV Rocephin (2) Acute coronary syndrome Current Visit: Yes Status: Acute Plan to address problem: Serial troponins and serial CPKs with MBs Lexiscan in the morning (3) Acute chest pain Current Visit: Yes Status: Acute Plan to address problem: . Serial troponins and serial CPKs Lexiscan in the morning if troponins and CKs are negative we will get the Lexiscan as an outpatient (4) Suspected COVID-19 virus infection Current Visit: Yes Status: Acute Plan to address problem: Coronavirus PCR in a.m. (5) HLD (hyperlipidemia) Current Visit: Yes Status: Acute Plan to address problem: Continue statins (6) HTN (hypertension) Current Visit: Yes Status: Chronic Qualifiers: Hypertension type: primary hypertension Qualified Code(s): I10 - Essential (primary) hypertension Plan to address problem: Continue antihypertensives and adjust medications as necessary (7) CAD (coronary artery disease) Current Visit: Yes Status: Acute Plan to address problem: Continue Plavix and aspirin and isosorbide mononitrate (8) DVT prophylaxis Current Visit: No Status: Acute Plan to address problem: Lovenox and GI prophylaxis
[2021-06-03] MEDS: HEPARIN 5,000 UNIT/1 ML VIAL SUB-Q SCH (23:21)
[2021-06-03] MEDS: FAMOTIDINE 20 MG/2 ML INJ IV SCH (23:21)
[2021-06-04 02:21] LABS: Creatine Kinase MB 2.6 ng/mL (0.0-4.0)
[2021-06-04 08:25] LABS: Basophils % (Auto) 0.5 % (0.0-1.8); Hematocrit 49.5 % (30.3-42.9); Hemoglobin 16.6 gm/dl (10.1-14.3); Lymphocytes # (Auto) 0.4 K/mm3 (1.2-5.4); Lymphocytes % (Auto) 14.6 % (13.4-35.0); Mean Corpuscular HGB Conc 34 % (30-34); Mean Corpuscular Volume 89 fl (79-97); Monocytes # (Auto) 0.3 K/mm3 (0.0-0.8); Monocytes % (Auto) 10.7 % (0.0-7.3); Platelet Count 198 K/mm3 (140-440); Red Blood Count 5.59 M/mm3 (3.65-5.03); Red Cell Distribution Width 14.6 % (13.2-15.2)
[2021-06-04 08:53] LABS: Alanine Aminotransferase 19 units/L (7-56); Albumin 3.7 g/dL (3.9-5); BUN/Creatinine Ratio 30; Blood Urea Nitrogen 30 mg/dL (7-17); Calcium 9.1 mg/dL (8.4-10.2); Creatine Kinase MB 2.6 ng/mL (0.0-4.0); Hemolysis Index 19
[2021-06-04] MEDS: HYDROmorphone 1 MG/1 ML INJ IV PRN ×2 (09:26→20:10)
[2021-06-04] MEDS: ASPIRIN EC 325 MG TAB PO SCH (10:08)
[2021-06-04] MEDS: METOPROLOL TARTRATE 50 MG TAB PO SCH ×2 (10:09→21:36)
[2021-06-04] MEDS: CLOPIDOGREL 75 MG TAB PO SCH (10:09)
[2021-06-04] MEDS: FAMOTIDINE 20 MG/2 ML INJ IV SCH ×2 (10:09→21:36)
--- NOTE | 2021-06-04 10:24 | History and Physical Report ---
History of Present Illness Date of admission: 06/03/21 15:54 Medications and Allergies Allergies Allergy/AdvReac Type Severity Reaction Status Date / Time lisinopril Allergy Swelling Verified 01/09/21 14:37 Home Medications Medication Instructions Recorded Confirmed Last Taken Type Baclofen [Lioresal] 10 mg PO BID PRN 01/09/21 01/09/21 01/08/21 22:00 History HYDROcodone/Acetaminop 7.5-325 7.5 mg PO Q6H PRN 01/09/21 01/09/21 Unknown History [[place] 7.5-325 mg per 15 ML] Aspirin EC [Ecotrin] 325 mg PO QDAY #30 tablet 01/11/21 Unknown Rx AtorvaSTATin [Lipitor] 40 mg PO QHS #30 tablet 01/11/21 Unknown Rx Clopidogrel [Plavix] 75 mg PO QDAY #30 tablet 01/11/21 Unknown Rx ISOSORBIDE MONOnitrate [Imdur ER] 30 mg PO QDAY #30 tablet 01/11/21 Unknown Rx Metoprolol [Lopressor TAB] 50 mg PO BID #60 tablet 01/11/21 Unknown Rx Active Meds: Active Medications Acetaminophen (Acetaminophen 325 Mg Tab) 650 mg PO Q4H PRN PRN Reason: Pain MILD(1-3)/Fever >100.5/ETIENNE Aspirin (Aspirin Ec 325 Mg Tab) 325 mg PO QDAY [facility] Last Admin: 06/04/21 10:08 Dose: 325 mg Documented by: Atorvastatin Calcium (Atorvastatin 40 Mg Tab) 40 mg PO QHS [facility] Baclofen (Baclofen 10 Mg Tab) 10 mg PO BID PRN PRN Reason: Inflammation Clopidogrel Bisulfate (Clopidogrel 75 Mg Tab) 75 mg PO QDAY [facility] Last Admin: 06/04/21 10:09 Dose: 75 mg Documented by: Famotidine (Famotidine 20 Mg/2 Ml Inj) 20 mg IV BID [facility] Last Admin: 06/04/21 10:09 Dose: 20 mg Documented by: Heparin Sodium (Porcine) (Heparin 5,000 Unit/1 Ml Vial) 5,000 unit SUB-Q Q12HR [facility] Last Admin: 06/03/21 23:21 Dose: 5,000 unit Documented by: Hydromorphone HCl (Hydromorphone 1 Mg/1 Ml Inj) 0.5 mg IV Q3H PRN PRN Reason: Pain , Severe (7-10) Last Admin: 06/04/21 09:26 Dose: 0.5 mg Documented by: Sodium Chloride (Nacl 0.9% 1000 Ml) 1,000 mls @ 100 mls/hr IV DIRECT [facility] Stop: 06/04/21 15:15 Isosorbide Mononitrate (Isosorbide Mononitrate Er 30 Mg Tab) 30 mg PO QDAY [facility] Last Admin: 06/04/21 10:18 Dose: 30 mg Documented by: Metoclopramide HCl (Metoclopramide 10 Mg/2 Ml Inj) 10 mg IV Q6H PRN PRN Reason: Nausea And Vomiting Metoprolol Tartrate (Metoprolol Tartrate 50 Mg Tab) 50 mg PO BID [facility] Last Admin: 06/04/21 10:09 Dose: 50 mg Documented by: Ondansetron HCl (Ondansetron 4 Mg/2 Ml Inj) 4 mg IV Q8H PRN PRN Reason: Nausea And Vomiting Oxycodone/Acetaminophen (Oxycodone /Acetaminophen 5-325mg Tab) 1 tab PO Q6H PRN PRN Reason: Pain, Moderate (4-6) Sodium Chloride (Sodium Chloride 0.9% 10 Ml Flush Syringe) 10 ml IV BID [facility] Last Admin: 06/04/21 10:03 Dose: 10 ml Documented by: Sodium Chloride (Sodium Chloride 0.9% 10 Ml Flush Syringe) 10 ml IV PRN PRN PRN Reason: LINE FLUSH Exam - Constitutional Vitals: Temp Pulse Resp BP Pulse Ox 96 H 16 115/98 97 06/04/21 09:29 06/04/21 09:29 06/04/21 09:29 06/04/21 09:29 HEART Score - HEART Score EKG: Non-specific Age: 45-65 Risk factors: > 3 risk factors or hx of atherosclerotic disease Troponin: Troponin T < 0.010 ng/mL (0.00-0.029) 06/03/21 16:47 Troponin: < normal limit - Critical Actions Critical Actions: 4-6 pts:12-16.6% risk of adverse cardiac event. Should be admitted Results - Labs CBC & Chem 7: 06/04/21 07:15 06/04/21 07:15 Labs: Laboratory Last Values WBC 3.1 K/mm3 (4.5-11.0) L 06/04/21 07:15 RBC 5.59 M/mm3 (3.65-5.03) H 06/04/21 07:15 Hgb 16.6 gm/dl (10.1-14.3) H 06/04/21 07:15 Hct 49.5 % (30.3-42.9) H 06/04/21 07:15 MCV 89 fl (79-97) 06/04/21 07:15 MCH 30 pg (28-32) 06/04/21 07:15 MCHC 34 % (30-34) 06/04/21 07:15 RDW 14.6 % (13.2-15.2) 06/04/21 07:15 Plt Count 198 K/mm3 (140-440) 06/04/21 07:15 Lymph % (Auto) 14.6 % (13.4-35.0) 06/04/21 07:15 [place] % (Auto) 10.7 % (0.0-7.3) H 06/04/21 07:15 Eos % (Auto) 0.0 % (0.0-4.3) 06/04/21 07:15 Baso % (Auto) 0.5 % (0.0-1.8) 06/04/21 07:15 Lymph # (Auto) 0.4 K/mm3 (1.2-5.4) L 06/04/21 07:15 [place] # (Auto) 0.3 K/mm3 (0.0-0.8) 06/04/21 07:15 Eos # (Auto) 0.0 K/mm3 (0.0-0.4) 06/04/21 07:15 Baso # (Auto) 0.0 K/mm3 (0.0-0.1) 06/04/21 07:15 Seg Neutrophils % 74.2 % (40.0-70.0) H 06/04/21 07:15 Seg Neutrophils # 2.3 K/mm3 (1.8-7.7) 06/04/21 07:15 PT 13.5 Sec. (12.2-14.9) 06/03/21 12:23 INR 0.97 (0.87-1.13) 06/03/21 12:23 APTT 32.0 Sec. (24.2-36.6) 06/03/21 12:23 D-Dimer 900.32 ng/mlDDU (0-234) H 06/03/21 12:23 Sodium 130 mmol/L (137-145) L 06/04/21 07:15 Potassium 4.6 mmol/L (3.6-5.0) D 06/04/21 07:15 Chloride 90.5 mmol/L (98-107) L 06/04/21 07:15 Carbon Dioxide 27 mmol/L (22-30) 06/04/21 07:15 Anion Gap 17 mmol/L 06/04/21 07:15 BUN 30 mg/dL (7-17) H 06/04/21 07:15 Creatinine 1.0 mg/dL (0.6-1.2) 06/04/21 07:15 Estimated GFR > 60 ml/min 06/04/21 07:15 BUN/Creatinine Ratio 30 % 06/04/21 07:15 Glucose 148 mg/dL (65-100) H 06/04/21 07:15 Hemoglobin A1c 6.7 % (4-6) H 06/04/21 07:15 Lactic Acid 1.70 mmol/L (0.7-2.0) 06/03/21 13:43 Calcium 9.1 mg/dL (8.4-10.2) 06/04/21 07:15 Ferritin 2196.0 ng/mL (10.0-200.0) H 06/03/21 13:41 Total Bilirubin 0.60 mg/dL (0.1-1.2) 06/04/21 07:15 AST 60 units/L (5-40) H 06/04/21 07:15 ALT 19 units/L (7-56) 06/04/21 07:15 Alkaline Phosphatase 123 units/L (35-129) 06/04/21 07:15 Lactate Dehydrogenase 1082 units/L (91-180) H 06/03/21 13:43 Total Creatine Kinase 495 units/L (30-135) H 06/04/21 07:15 CK-MB (CK-2) 2.6 ng/mL (0.0-4.0) 06/04/21 07:15 CK-MB (CK-2) Rel Index 0.5 (0-4) 06/04/21 07:15 Troponin T < 0.010 ng/mL (0.00-0.029) 06/03/21 16:47 C-Reactive Protein 7.90 mg/dL (0.00-1.30) H 06/03/21 13:43 NT-Pro-B Natriuret Pep 467.5 pg/mL (0-450) H 06/03/21 13:31 Total Protein 7.8 g/dL (6.3-8.2) 06/04/21 07:15 Albumin 3.7 g/dL (3.9-5) L 06/04/21 07:15 Albumin/Globulin Ratio 0.9 % 06/04/21 07:15 HCG, Qual Negative (Negative) 06/03/21 12:23 Microbiology: Microbiology 06/03/21 13:43 Peripheral/Venous Blood Culture - Preliminary Culture in Progress 06/03/21 13:43 Peripheral/Venous Blood Culture - Preliminary Culture in Progress Assessment and Plan - Patient Problems (1) Acute coronary syndrome Current Visit: Yes Status: Acute (2) Acute chest pain Current Visit: Yes Status: Acute (3) Suspected COVID-19 virus infection Current Visit: Yes Status: Acute (4) HLD (hyperlipidemia) Current Visit: Yes Status: Acute (5) HTN (hypertension) Current Visit: Yes Status: Chronic Qualifiers: Hypertension type: primary hypertension Qualified Code(s): I10 - Essential (primary) hypertension (6) CAD (coronary artery disease) Current Visit: Yes Status: Acute (7) DVT prophylaxis Current Visit: No Status: Acute
--- NOTE | 2021-06-04 10:45 | Consultation ---
History of Present Illness Consult date: 06/04/21 Requesting physician: DAHLIA MCCRAY Consult reason: chest pain History of present illness: Patient is a 50-year-old with a history of coronary artery disease status post PCI. She has a recent history of acute inferior ST elevation CT in January and underwent subsequent mechanical thrombectomy and PCI. She has had a stable post PCI course with optimal medical therapy. She unfortunately has not been vaccinated. She reports she was exposed to her sister around 2 weeks ago who tested positive for Covid. She presented to the hospital with cough congestion and chest pain. She reports that every time she coughs she has chest pain. She also reports difficulty breathing. No fever or chills. Generally feeling signi ficantly weak and fatigued. Her initial evaluation revealed normal troponins. However her D-dimer was elevated including markers for Covid. CT scan of the chest positive for possible COVID pneumonia. Past History Past Medical History: CAD, hypertension, hyperlipidemia Past Surgical History: No surgical history Social history: no significant social history Family history: no significant family history Medications and Allergies Allergies Allergy/AdvReac Type Severity Reaction Status Date / Time lisinopril Allergy Swelling Verified 01/09/21 14:37 Home Medications Medication Instructions Recorded Confirmed Last Taken Type Baclofen [Lioresal] 10 mg PO BID PRN 01/09/21 01/09/21 01/08/21 22:00 History HYDROcodone/Acetaminop 7.5-325 7.5 mg PO Q6H PRN 01/09/21 01/09/21 Unknown History [[place] 7.5-325 mg per 15 ML] Aspirin EC [Ecotrin] 325 mg PO QDAY #30 tablet 01/11/21 Unknown Rx AtorvaSTATin [Lipitor] 40 mg PO QHS #30 tablet 01/11/21 Unknown Rx Clopidogrel [Plavix] 75 mg PO QDAY #30 tablet 01/11/21 Unknown Rx ISOSORBIDE MONOnitrate [Imdur ER] 30 mg PO QDAY #30 tablet 01/11/21 Unknown Rx Metoprolol [Lopressor TAB] 50 mg PO BID #60 tablet 01/11/21 Unknown Rx Active Meds: Active Medications Acetaminophen (Acetaminophen 325 Mg Tab) 650 mg PO Q4H PRN PRN Reason: Pain MILD(1-3)/Fever >100.5/ETIENNE Aspirin (Aspirin Ec 325 Mg Tab) 325 mg PO QDAY [facility] Last Admin: 06/04/21 10:08 Dose: 325 mg Documented by: Atorvastatin Calcium (Atorvastatin 40 Mg Tab) 40 mg PO QHS [facility] Baclofen (Baclofen 10 Mg Tab) 10 mg PO BID PRN PRN Reason: Inflammation Clopidogrel Bisulfate (Clopidogrel 75 Mg Tab) 75 mg PO QDAY [facility] Last Admin: 06/04/21 10:09 Dose: 75 mg Documented by: Famotidine (Famotidine 20 Mg/2 Ml Inj) 20 mg IV BID [facility] Last Admin: 06/04/21 10:09 Dose: 20 mg Documented by: Heparin Sodium (Porcine) (Heparin 5,000 Unit/1 Ml Vial) 5,000 unit SUB-Q Q12HR [facility] Last Admin: 06/03/21 23:21 Dose: 5,000 unit Documented by: Hydromorphone HCl (Hydromorphone 1 Mg/1 Ml Inj) 0.5 mg IV Q3H PRN PRN Reason: Pain , Severe (7-10) Last Admin: 06/04/21 09:26 Dose: 0.5 mg Documented by: Sodium Chloride (Nacl 0.9% 1000 Ml) 1,000 mls @ 100 mls/hr IV DIRECT [facility] Stop: 06/04/21 15:15 Isosorbide Mononitrate (Isosorbide Mononitrate Er 30 Mg Tab) 30 mg PO QDAY [facility] Last Admin: 06/04/21 10:18 Dose: 30 mg Documented by: Metoclopramide HCl (Metoclopramide 10 Mg/2 Ml Inj) 10 mg IV Q6H PRN PRN Reason: Nausea And Vomiting Metoprolol Tartrate (Metoprolol Tartrate 50 Mg Tab) 50 mg PO BID [facility] Last Admin: 06/04/21 10:09 Dose: 50 mg Documented by: Ondansetron HCl (Ondansetron 4 Mg/2 Ml Inj) 4 mg IV Q8H PRN PRN Reason: Nausea And Vomiting Oxycodone/Acetaminophen (Oxycodone /Acetaminophen 5-325mg Tab) 1 tab PO Q6H PRN PRN Reason: Pain, Moderate (4-6) Sodium Chloride (Sodium Chloride 0.9% 10 Ml Flush Syringe) 10 ml IV BID [facility] Last Admin: 06/04/21 10:03 Dose: 10 ml Documented by: Sodium Chloride (Sodium Chloride 0.9% 10 Ml Flush Syringe) 10 ml IV PRN PRN PRN Reason: LINE FLUSH Review of Systems All systems: negative (As mentioned in the H&P) Physical Examination Vital Signs Pulse Resp BP Pulse Ox 121 H 22 105/84 93 06/03/21 12:17 06/03/21 12:17 06/03/21 12:17 06/03/21 12:17 General appearance: obese HEENT: Positive: Normocephaly Neck: Positive: trachea midline Cardiac: Positive: Reg Rate and Rhythm Lungs: Positive: clear to auscultation, Wheezes Neuro: Positive: Grossly Intact Abdomen: Positive: Unremarkable Extremities: Present: normal Results 06/04/21 07:15 06/04/21 07:15 Cardiac Enzymes 06/03/21 06/03/21 06/04/21 Range/Units 12:23 13:43 01:34 AST 75 H (5-40) units/L Lactate Dehydrogenase 1082 H (91-180) units/L CK-MB (CK-2) 2.6 (0.0-4.0) ng/mL 06/04/21 06/04/21 Range/Units 07:15 07:15 AST 60 H (5-40) units/L Lactate Dehydrogenase (91-180) units/L CK-MB (CK-2) 2.6 (0.0-4.0) ng/mL Coagulation 06/03/21 Range/Units 12:23 PT 13.5 (12.2-14.9) Sec. INR 0.97 (0.87-1.13) APTT 32.0 (24.2-36.6) Sec. CBC 06/03/21 06/04/21 Range/Units 12:23 07:15 WBC 4.6 3.1 L (4.5-11.0) K/mm3 RBC 5.44 H 5.59 H (3.65-5.03) M/mm3 Hgb 16.1 H 16.6 H (10.1-14.3) gm/dl Hct 47.4 H 49.5 H (30.3-42.9) % Plt Count 178 198 (140-440) K/mm3 Lymph # (Auto) 0.5 L 0.4 L (1.2-5.4) K/mm3 [place] # (Auto) 0.4 0.3 (0.0-0.8) K/mm3 Eos # (Auto) 0.0 0.0 (0.0-0.4) K/mm3 Baso # (Auto) 0.0 0.0 (0.0-0.1) K/mm3 Comprehensive Metabolic Panel 06/03/21 06/03/21 06/04/21 Range/Units 12:23 13:43 07:15 Sodium 128 L 130 L (137-145) mmol/L Potassium 3.4 L 4.6 D (3.6-5.0) mmol/L Chloride 86.9 L 90.5 L (98-107) mmol/L Carbon Dioxide 26 27 (22-30) mmol/L BUN 24 H 30 H (7-17) mg/dL Creatinine 1.1 1.0 (0.6-1.2) mg/dL Glucose 118 H 114 H 148 H (65-100) mg/dL Calcium 8.9 9.1 (8.4-10.2) mg/dL AST 75 H 60 H (5-40) units/L ALT 19 19 (7-56) units/L Alkaline Phosphatase 114 123 (35-129) units/L Total Protein 8.2 7.8 (6.3-8.2) g/dL Albumin 3.2 L 3.7 L (3.9-5) g/dL EKG interpretations - Telemetry EKG Rhythm: Sinus Tachycardia (With inferior Q waves suggestive of prior CT) Assessment and Plan Impression 1. Atypical chest pain, pain with coughing and diffuse all over the chest consistent with chest wall pain secondary to pneumonia and upper respiratory infection 2. High suspicion for Covid pneumonia including symptoms, unvaccinated status serology and CT scan. 3. Elevated D-dimer negative VQ scan in the setting of Covid pneumonia. 4. Old inferior ST elevation CT 5. Abnormal EKG with inferior Q waves and sinus tachycardia 6. Hypertension 7. Hyperlipidemia 8. Obesity Plan 1. No further cardiac work-up is recommended for this atypical pain that is most likely secondary to pneumonia 2. Resume her home dual antiplatelet therapy statins. 3. Resume beta-blockers if tolerated 4. Anticoagulation per COVID protocol per primary team 5. Rest per primary team
[2021-06-04] MEDS: HEPARIN 5,000 UNIT/1 ML VIAL SUB-Q SCH ×2 (10:59→21:36)
[2021-06-04] MEDS: cefTRIAXone/NS 2 GM/100 ML 2 GM/100 ML BAG IV SCH (12:29)
[2021-06-04] MEDS: AZITHROMYCIN/NS 500 MG/250 ML 500 MG/250 ML BAG IV SCH (12:29)
[2021-06-04 15:25] LABS: Creatine Kinase MB 2.7 ng/mL (0.0-4.0)
[2021-06-04] MEDS: ONDANSETRON 4 MG/2 ML INJ IV PRN (20:11)
[2021-06-04] MEDS: BACLOFEN 10 MG TAB PO PRN (20:13)
--- NOTE | 2021-06-05 07:47 | Progress Note ---
Assessment and Plan - Patient Problems (1) Bilateral pneumonia Current Visit: Yes Status: Acute Plan to address problem: Patient started on IV Zithromax and IV Rocephin (2) Acute coronary syndrome Current Visit: Yes Status: Acute Plan to address problem: Serial troponins and serial CPKs with MBs Lexiscan in the morning (3) Acute chest pain Current Visit: Yes Status: Acute Plan to address problem: . Serial troponins and serial CPKs Lexiscan in the morning if troponins and CKs are negative we will get the Lexiscan as an outpatient (4) Suspected COVID-19 virus infection Current Visit: Yes Status: Acute Plan to address problem: Coronavirus PCR in a.m. (5) HLD (hyperlipidemia) Current Visit: Yes Status: Acute Plan to address problem: Continue statins (6) HTN (hypertension) Current Visit: Yes Status: Chronic Qualifiers: Hypertension type: primary hypertension Qualified Code(s): I10 - Essential (primary) hypertension Plan to address problem: Continue antihypertensives and adjust medications as necessary (7) CAD (coronary artery disease) Current Visit: Yes Status: Acute Plan to address problem: Continue Plavix and aspirin and isosorbide mononitrate (8) DVT prophylaxis Current Visit: No Status: Acute Plan to address problem: Lovenox and GI prophylaxis Subjective Date of service: 06/04/21 Principal diagnosis: COVID pneumonia, acute respiratory failure with hypoxia Interval history: Patient admitted with chest pain and cough, rule out Covid pneumonia Atrial 06/26/2021 Patient is positive for Covid pneumonia Objective - Constitutional Vitals: Vital Signs - 12hr 06/04/21 06/04/21 06/04/21 20:00 21:00 21:02 Pulse Rate 92 H Respiratory 24 Rate Blood Pressure 115/80 119/78 119/78 O2 Sat by Pulse 93 95 96 Oximetry 06/04/21 06/04/21 06/04/21 21:34 21:36 22:00 Pulse Rate 80 79 Respiratory 18 Rate Blood Pressure 119/78 98/71 O2 Sat by Pulse 95 94 Oximetry 06/04/21 06/05/21 06/05/21 23:00 00:00 01:00 Pulse Rate 82 80 75 Respiratory 12 15 13 Rate Blood Pressure 106/76 104/71 103/66 O2 Sat by Pulse 99 96 96 Oximetry 06/05/21 06/05/21 06/05/21 02:00 03:00 04:00 Pulse Rate 75 73 Respiratory 20 17 Rate Blood Pressure 116/83 105/74 112/83 O2 Sat by Pulse 95 98 88 Oximetry 06/05/21 06/05/21 05:00 06:00 Pulse Rate Respiratory Rate Blood Pressure 112/83 104/69 O2 Sat by Pulse 95 95 Oximetry General appearance: Present: no acute distress, well-nourished - EENT Eyes: PERRL, EOM intact ENT: hearing intact, clear oral mucosa Ears: bilateral: normal - Neck Neck: supple, normal ROM - Respiratory Respiratory effort: normal Respiratory: bilateral: CTA - Breasts Breasts: normal - Cardiovascular Heart rate: 78 Rhythm: regular Heart Sounds: Present: S1 & S2. Absent: gallop, rub Extremities: pulses intact, No edema, normal color, Full ROM - Gastrointestinal General gastrointestinal: Present: soft, non-tender, non-distended, normal bowel sounds - Genitourinary Female genitourinary: normal - Integumentary Integumentary: clear, warm, dry - Musculoskeletal Musculoskeletal: 1, strength equal bilaterally - Neurologic Neurologic: moves all extremities - Psychiatric Psychiatric: memory intact, appropriate mood/affect, intact judgment & insight - Labs CBC & Chem 7: 06/04/21 07:15 06/04/21 07:15 Labs: Abnormal lab results 06/04/21 06/04/21 06/04/21 Range/Units 07:15 07:15 07:15 WBC 3.1 L (4.5-11.0) K/mm3 RBC 5.59 H (3.65-5.03) M/mm3 Hgb 16.6 H (10.1-14.3) gm/dl Hct 49.5 H (30.3-42.9) % Phillips % (Auto) 10.7 H (0.0-7.3) % Lymph # (Auto) 0.4 L (1.2-5.4) K/mm3 Seg Neutrophils % 74.2 H (40.0-70.0) % Sodium 130 L (137-145) mmol/L Chloride 90.5 L (98-107) mmol/L BUN 30 H (7-17) mg/dL Glucose 148 H (65-100) mg/dL Hemoglobin A1c 6.7 H (4-6) % AST 60 H (5-40) units/L Total Creatine Kinase (30-135) units/L Albumin 3.7 L (3.9-5) g/dL Coronavirus (PCR) (Negative) 06/04/21 06/04/21 06/04/21 Range/Units 07:15 08:52 14:54 WBC (4.5-11.0) K/mm3 RBC (3.65-5.03) M/mm3 Hgb (10.1-14.3) gm/dl Hct (30.3-42.9) % Phillips % (Auto) (0.0-7.3) % Lymph # (Auto) (1.2-5.4) K/mm3 Seg Neutrophils % (40.0-70.0) % Sodium (137-145) mmol/L Chloride (98-107) mmol/L BUN (7-17) mg/dL Glucose (65-100) mg/dL Hemoglobin A1c (4-6) % AST (5-40) units/L Total Creatine Kinase 495 H 358 H (30-135) units/L Albumin (3.9-5) g/dL Coronavirus (PCR) Positive A (Negative) HEART Score - HEART Score EKG: Non-specific Age: 45-65 Risk factors: > 3 risk factors or hx of atherosclerotic disease Troponin: Troponin T < 0.010 ng/mL (0.00-0.029) 06/03/21 16:47 Troponin: < normal limit - Critical Actions Critical Actions: 4-6 pts:12-16.6% risk of adverse cardiac event. Should be admitted
--- NOTE | 2021-06-05 12:08 | Progress Note ---
Assessment and Plan - Patient Problems (1) Acute chest pain Current Visit: Yes Status: Acute (2) CAD (coronary artery disease) Current Visit: Yes Status: Acute Subjective Date of service: 06/05/21 Principal diagnosis: COVID pneumonia, acute respiratory failure with hypoxia Interval history: NO EXAM / COVID + Objective Vital Signs Temp Pulse Resp BP BP Pulse Ox 06/05/21 06:00 104/69 95 06/05/21 05:00 112/83 95 06/05/21 04:00 112/83 88 06/05/21 03:00 73 17 105/74 98 06/05/21 02:00 75 20 116/83 95 06/05/21 01:00 75 13 103/66 96 06/05/21 00:00 80 15 104/71 96 06/04/21 23:00 82 12 106/76 99 06/04/21 22:00 79 18 98/71 94 06/04/21 21:36 80 119/78 06/04/21 21:34 95 06/04/21 21:02 119/78 96 06/04/21 21:00 119/78 95 06/04/21 20:00 92 H 24 115/80 93 06/04/21 19:00 19 114/85 92 06/04/21 18:00 87 13 95/71 95 06/04/21 17:27 97.8 F 84 16 95/71 96 06/04/21 17:00 88 16 95/71 94 06/04/21 16:00 103/71 91 06/04/21 15:00 80 13 103/71 95 06/04/21 14:01 84 17 138/97 99 06/04/21 13:00 138/97 91 - Physical Examination Narrative exam: NO EXAM / COVID + Neuro: Positive: Grossly Intact Abdomen: Positive: Unremarkable - Labs and Meds Cardiac Enzymes 06/04/21 Range/Units 14:54 CK-MB (CK-2) 2.7 (0.0-4.0) ng/mL - Imaging and Cardiology EKG: report reviewed (Sinus rhythm no acute ST-T wave changes)
[2021-06-05] MEDS: HEPARIN 5,000 UNIT/1 ML VIAL SUB-Q SCH ×2 (13:58→21:32)
[2021-06-05] MEDS: oxyCODONE /ACETAMINOPHEN 5-325MG TAB PO PRN (13:58)
[2021-06-05] MEDS: FAMOTIDINE 20 MG/2 ML INJ IV SCH ×2 (13:58→21:32)
[2021-06-05] MEDS: CLOPIDOGREL 75 MG TAB PO SCH (13:59)
[2021-06-05] MEDS: cefTRIAXone/NS 2 GM/100 ML 2 GM/100 ML BAG IV SCH (13:59)
[2021-06-05] MEDS: ASPIRIN EC 325 MG TAB PO SCH (13:59)
[2021-06-05] MEDS: METOPROLOL TARTRATE 50 MG TAB PO SCH ×2 (13:59→23:17)
[2021-06-05] MEDS: AZITHROMYCIN/NS 500 MG/250 ML 500 MG/250 ML BAG IV SCH (18:45)
[2021-06-05] MEDS: BACLOFEN 10 MG TAB PO PRN (21:42)
[2021-06-05] MEDS: ACETAMINOPHEN 325 MG TAB PO PRN (23:22)
--- NOTE | 2021-06-06 06:15 | Progress Note ---
Assessment and Plan - Patient Problems (1) Acute respiratory failure with hypoxia Current Visit: Yes Status: Acute Plan to address problem: Patient is on 5 L nasal cannula oxygen Adjust oxygen as necessary (2) Bilateral pneumonia Current Visit: Yes Status: Acute Plan to address problem: Patient on IV Zithromax and IV Rocephin (3) Acute coronary syndrome Current Visit: Yes Status: Acute Plan to address problem: Cardiac enzymes are negative Atypical chest pain per cardiology (4) Suspected COVID-19 virus infection Current Visit: Yes Status: Acute Plan to address problem: Coronavirus PCR in a.m. (5) HLD (hyperlipidemia) Current Visit: Yes Status: Acute Plan to address problem: Continue statins (6) HTN (hypertension) Current Visit: Yes Status: Chronic Qualifiers: Hypertension type: primary hypertension Qualified Code(s): I10 - Essential (primary) hypertension Plan to address problem: Continue antihypertensives and adjust medications as necessary (7) CAD (coronary artery disease) Current Visit: Yes Status: Acute Plan to address problem: Continue Plavix and aspirin and isosorbide mononitrate (8) DVT prophylaxis Current Visit: No Status: Acute Plan to address problem: Lovenox and GI prophylaxis Subjective Date of service: 06/05/21 Principal diagnosis: COVID pneumonia, acute respiratory failure with hypoxia Interval history: Patient admitted with chest pain and cough, rule out Covid pneumonia Atrial 06/26/2021 Patient is positive for Covid pneumonia 06/04/2021 Patient is Covid positive Cardiology consult requested with chest pain 06/05/2021 Patient is on 5 L nasal cannula oxygen Chest pain is atypical Cardiology consult appreciated Objective - Constitutional Vitals: Vital Signs - 12hr 06/05/21 06/05/21 06/05/21 19:00 20:00 20:56 Temperature 98.3 F Pulse Rate 109 H 107 H 118 H Respiratory 18 25 H 20 Rate Blood Pressure 106/75 106/84 130/76 Blood Pressure [Left] O2 Sat by Pulse 92 95 89 Oximetry 06/05/21 06/05/21 06/05/21 23:15 23:17 23:22 Temperature Pulse Rate 81 87 Respiratory 19 17 Rate Blood Pressure 122/86 Blood Pressure 122/86 [Left] O2 Sat by Pulse 91 Oximetry 06/06/21 06/06/21 06/06/21 00:22 01:53 03:21 Temperature 99.4 F Pulse Rate 96 H Respiratory 17 17 16 Rate Blood Pressure 106/75 Blood Pressure [Left] O2 Sat by Pulse 96 93 Oximetry General appearance: Present: mild distress, well-nourished - EENT Eyes: PERRL, EOM intact ENT: hearing intact, clear oral mucosa Ears: bilateral: normal - Neck Neck: supple, normal ROM - Respiratory Respiratory effort: normal Respiratory: bilateral: CTA - Breasts Breasts: normal - Cardiovascular Heart rate: 78 Rhythm: regular Heart Sounds: Present: S1 & S2. Absent: gallop, rub Extremities: pulses intact, No edema, normal color, Full ROM - Gastrointestinal General gastrointestinal: Present: soft, non-tender, non-distended, normal bowel sounds Rectal Exam: deferred - Genitourinary Female genitourinary: normal - Integumentary Integumentary: clear, warm, dry - Musculoskeletal Musculoskeletal: 1, strength equal bilaterally - Neurologic Neurologic: moves all extremities - Psychiatric Psychiatric: memory intact, appropriate mood/affect, intact judgment & insight - Labs CBC & Chem 7: 06/04/21 07:15 06/04/21 07:15 HEART Score - HEART Score EKG: Non-specific Age: 45-65 Risk factors: > 3 risk factors or hx of atherosclerotic disease Troponin: Troponin T < 0.010 ng/mL (0.00-0.029) 06/03/21 16:47 Troponin: < normal limit - Critical Actions Critical Actions: 4-6 pts:12-16.6% risk of adverse cardiac event. Should be admitted
--- NOTE | 2021-06-06 08:49 | Electrocardiograph Report ---
Test Date: 2021-06-03 Test Time: 12:09:42 Pat Name: SAMANTHA CARDENAS Department: Room: A385 Gender: F [employer] F[employer] Operator: FAIZA : 1970 Requested By: TRESSA SUERO Order Number: [id number] Reading MD: Vitaliy Gasca Measurements Intervals [place] Rate: 118 P: 32 AR: 139 QRS: 13 QRSD: 84 T: -11 QT: 316 QTc: 444 Interpretive Statements Sinus tachycardia Multiform ventricular premature complexes Probable left atrial enlargement Inferior infarct, age indeterminate Compared to ECG 01/10/2021 08:33:10 Ventricular premature complex(es) now present Sinus rhythm no longer present Myocardial infarct finding still present Electronically Signed On 06-06-2021 8:49:20 EDT by Vitaliy Gasca
--- NOTE | 2021-06-06 08:50 | Electrocardiograph Report ---
[facility] Test Date: 2021-06-03 Test Time: 13:29:13 Pat Name: SAMANTHA CARDENAS Department: Room: A385 Gender: F Environmental Services Assistant: FAIZA : 1970 Requested By: TRESSA SUERO Order Number: [id number] Reading MD: Vitaliy Gasca Measurements Intervals [place] Rate: 113 P: 41 NM: 152 QRS: 20 QRSD: 83 T: 0 QT: 327 QTc: 450 Interpretive Statements Sinus tachycardia Multiform ventricular premature complexes Probable left atrial enlargement BORDERLINE INFERIOR Q WAVES Compared to ECG 06/03/2021 12:50:57 Ventricular premature complex(es) now present Myocardial infarct finding still present Electronically Signed On 06-06-2021 8:50:13 EDT by Vitaliy Gasca
--- NOTE | 2021-06-06 08:50 | Electrocardiograph Report ---
[facility] Test Date: 2021-06-03 Test Time: 12:50:57 Pat Name: SAMANTHA CARDENAS Department: Room: A385 Gender: F Roadmaster: FAIZA : 1970 Requested By: TRESSA SUERO Order Number: [id number] Reading MD: Vitaliy Gasca Measurements Intervals [place] Rate: 119 P: 44 LA: 144 QRS: 23 QRSD: 80 T: 3 QT: 309 QTc: 435 Interpretive Statements Sinus tachycardia Probable left atrial enlargement nonspecific st-t poor r wave progression Compared to ECG 06/03/2021 12:09:42 Ventricular premature complex(es) no longer present Electronically Signed On 06-06-2021 8:49:44 EDT by Vitaliy Gasca
--- NOTE | 2021-06-06 09:16 | Progress Note ---
<JUAN JOSÉ DELGADO - Last Filed: 06/06/21 09:10> Assessment and Plan Atypical chest pain, associated with coughing secondary to pneumonia COVID 19 Pneumonia negative VQ scan Old inferior ST elevation [place] s/p PCI 01/2021; on plavix and aspirin LVEF 45-50% by echo 01/2021 Hypertension Hyperlipidemia Obesity Continue medical therapy for coronary artery disease. Otherwise, conservative cardiac management. Subjective Date of service: 06/06/21 Principal diagnosis: COVID pneumonia, acute respiratory failure with hypoxia Interval history: No cardiac events reported. Denies chest pain. No distress noted. Objective Vital Signs Temp Pulse Resp BP BP Pulse Ox 06/06/21 08:33 16 93 06/06/21 03:21 99.4 F 96 H 16 106/75 93 06/06/21 01:53 17 96 06/06/21 00:22 17 06/05/21 23:22 17 06/05/21 23:17 87 122/86 06/05/21 23:15 81 19 122/86 91 06/05/21 20:56 98.3 F 118 H 20 130/76 89 06/05/21 20:00 107 H 25 H 106/84 95 06/05/21 19:00 109 H 18 106/75 92 06/05/21 18:00 113 H 14 105/68 90 06/05/21 16:00 106 H 25 H 110/71 94 06/05/21 15:00 111 H 19 105/71 95 06/05/21 14:00 126 H 16 111/77 93 06/05/21 13:59 115 H 114/73 06/05/21 13:00 111/77 91 06/05/21 12:01 125/81 94 06/05/21 11:00 96 H 18 116/71 91 06/05/21 10:00 102 H 15 99/77 93 - Physical Examination Narrative exam: Deferred due to isolation protocol. Neuro: Positive: Grossly Intact Abdomen: Positive: Unremarkable Extremities: Present: normal - Imaging and Cardiology EKG: report reviewed (Sinus rhythm no acute ST-T wave changes) <FABIAN DUNCAN - Last Filed: 06/08/21 11:41> Assessment and Plan - Patient Problems (1) CAD (coronary artery disease) Current Visit: Yes Status: Acute Subjective Interval history: I SAW THIS PT & AGREE WITH THE Dx & Tx PLAN. Objective Vital Signs Temp Pulse Resp BP Pulse Ox 06/08/21 06:04 97.4 F L 76 20 123/79 94 06/07/21 22:55 98.0 F 82 20 122/88 95 06/07/21 22:00 20 100 06/07/21 19:00 95 06/07/21 16:01 97.4 F L 90 18 116/82 97 06/07/21 13:44 95 06/07/21 11:56 97.5 F L 76 18 115/81 95 - Labs and Meds Cardiac Enzymes 06/08/21 Range/Units 05:47 AST 41 H (5-40) units/L Comprehensive Metabolic Panel 06/08/21 Range/Units 05:47 Sodium 136 L (137-145) mmol/L Potassium 4.0 (3.6-5.0) mmol/L Chloride 98.1 (98-107) mmol/L Carbon Dioxide 30 (22-30) mmol/L BUN 13 (7-17) mg/dL Creatinine 0.6 (0.6-1.2) mg/dL Glucose 117 H (65-100) mg/dL Calcium 9.0 (8.4-10.2) mg/dL AST 41 H (5-40) units/L ALT 21 (7-56) units/L Alkaline Phosphatase 86 (35-129) units/L Total Protein 6.9 (6.3-8.2) g/dL Albumin 2.7 L (3.9-5) g/dL
[2021-06-06] MEDS: HEPARIN 5,000 UNIT/1 ML VIAL SUB-Q SCH ×2 (09:58→22:38)
[2021-06-06] MEDS: FAMOTIDINE 20 MG/2 ML INJ IV SCH ×2 (09:58→22:38)
[2021-06-06] MEDS: ONDANSETRON 4 MG/2 ML INJ IV PRN (09:58)
[2021-06-06] MEDS: CLOPIDOGREL 75 MG TAB PO SCH (09:58)
[2021-06-06] MEDS: METOPROLOL TARTRATE 50 MG TAB PO SCH ×2 (09:58→22:38)
[2021-06-06] MEDS: ASPIRIN EC 325 MG TAB PO SCH (09:58)
[2021-06-06] MEDS: cefTRIAXone/NS 2 GM/100 ML 2 GM/100 ML BAG IV SCH (11:41)
[2021-06-06] MEDS ORDERED: SODIUM CHLORIDE 0.9% 50 ML IVPB IV SCH (12:30)
--- NOTE | 2021-06-06 12:46 | Consultation ---
History of Present Illness - Reason for Consult Consult date: 06/06/21 - History of Present Illness 50-year-old female past medical history obesity, coronary artery disease with history of STEMI, myalgia, hospital planing of chest pain. Chest complains associated nausea and vomiting. She is on vaccinated against Covid. She reported baseline shortness of breath. Afebrile since admission with a white count of 3.1. Covid positive. Normal renal function. Normal procalcitonin. Currently on ceftriaxone and azithromycin. On 7 L nasal cannula. Imaging personally reviewed: Chest CT: Bilateral pneumonia Review of systems: Deferred to reduce to the risk of transmission of COVID-19 Past History Past Medical History: CAD, hypertension, hyperlipidemia Past Surgical History: No surgical history Social history: no significant social history Family history: no significant family history Medications and Allergies Allergies Allergy/AdvReac Type Severity Reaction Status Date / Time lisinopril Allergy Swelling Verified 01/09/21 14:37 Home Medications Medication Instructions Recorded Confirmed Last Taken Type Baclofen [Lioresal] 10 mg PO BID PRN 01/09/21 06/06/21 06/04/21 22:00 History HYDROcodone/Acetaminop 7.5-325 7.5 mg PO Q6H PRN 01/09/21 06/06/21 06/05/21 13:45 History [[place] 7.5-325 mg per 15 ML] Aspirin EC [Ecotrin] 325 mg PO QDAY #30 tablet 01/11/21 06/06/21 06/06/21 02:08 Rx AtorvaSTATin [Lipitor] 40 mg PO QHS #30 tablet 01/11/21 06/06/21 06/05/21 22:00 Rx Clopidogrel [Plavix] 75 mg PO QDAY #30 tablet 01/11/21 06/06/21 06/05/21 13:45 Rx ISOSORBIDE MONOnitrate [Imdur ER] 30 mg PO QDAY #30 tablet 01/11/21 Unknown Rx Metoprolol [Lopressor TAB] 50 mg PO BID #60 tablet 01/11/21 06/06/21 06/05/21 23:00 Rx Active Meds: Active Medications Acetaminophen (Acetaminophen 325 Mg Tab) 650 mg PO Q4H PRN PRN Reason: Pain MILD(1-3)/Fever >100.5/ETIENNE Last Admin: 06/05/21 23:22 Dose: 650 mg Documented by: Aspirin (Aspirin Ec 325 Mg Tab) 325 mg PO QDAY [facility] Last Admin: 06/06/21 09:58 Dose: 325 mg Documented by: Atorvastatin Calcium (Atorvastatin 40 Mg Tab) 40 mg PO QHS [facility] Last Admin: 06/05/21 21:32 Dose: 40 mg Documented by: Baclofen (Baclofen 10 Mg Tab) 10 mg PO BID PRN PRN Reason: Inflammation Last Admin: 06/05/21 21:42 Dose: 10 mg Documented by: Clopidogrel Bisulfate (Clopidogrel 75 Mg Tab) 75 mg PO QDAY [facility] Last Admin: 06/06/21 09:58 Dose: 75 mg Documented by: Famotidine (Famotidine 20 Mg/2 Ml Inj) 20 mg IV BID [facility] Last Admin: 06/06/21 09:58 Dose: 20 mg Documented by: Heparin Sodium (Porcine) (Heparin 5,000 Unit/1 Ml Vial) 5,000 unit SUB-Q Q12HR [facility] Last Admin: 06/06/21 09:58 Dose: 5,000 unit Documented by: Hydromorphone HCl (Hydromorphone 1 Mg/1 Ml Inj) 0.5 mg IV Q3H PRN PRN Reason: Pain , Severe (7-10) Last Admin: 06/04/21 20:10 Dose: 0.5 mg Documented by: Azithromycin (Zithromax/Ns) 500 mg in 250 mls @ 250 mls/hr IV Q24H [facility] Stop: 06/07/21 13:59 Last Admin: 06/05/21 18:45 Dose: 250 mls/hr Documented by: Ceftriaxone Sodium (Rocephin/Ns 2 Gm/100 Ml) 2 gm in 100 mls @ 200 mls/hr IV Q24H [facility]; Protocol Stop: 06/07/21 12:29 Last Admin: 06/06/21 11:41 Dose: 200 mls/hr Documented by: Isosorbide Mononitrate (Isosorbide Mononitrate Er 30 Mg Tab) 30 mg PO QDAY [facility] Last Admin: 06/06/21 09:59 Dose: 30 mg Documented by: Metoclopramide HCl (Metoclopramide 10 Mg/2 Ml Inj) 10 mg IV Q6H PRN PRN Reason: Nausea And Vomiting Metoprolol Tartrate (Metoprolol Tartrate 50 Mg Tab) 50 mg PO BID [facility] Last Admin: 06/06/21 09:58 Dose: 50 mg Documented by: Ondansetron HCl (Ondansetron 4 Mg/2 Ml Inj) 4 mg IV Q8H PRN PRN Reason: Nausea And Vomiting Last Admin: 06/06/21 09:58 Dose: 4 mg Documented by: Oxycodone/Acetaminophen (Oxycodone /Acetaminophen 5-325mg Tab) 1 tab PO Q6H PRN PRN Reason: Pain, Moderate (4-6) Last Admin: 06/05/21 13:58 Dose: 1 tab Documented by: Sodium Chloride (Sodium Chloride 0.9% 10 Ml Flush Syringe) 10 ml IV BID [facility] Last Admin: 06/06/21 09:59 Dose: 10 ml Documented by: Sodium Chloride (Sodium Chloride 0.9% 10 Ml Flush Syringe) 10 ml IV PRN PRN PRN Reason: LINE FLUSH Physical Examination - Physical Exam Narrative exam: Physical exam deferred to reduce risk of transmission of COVID-19. Please refer to primary team's note. - Constitutional Vitals: Vital Signs Temp Pulse Resp BP Pulse Ox 99.4 F 96 H 16 106/75 96 06/06/21 03:21 06/06/21 03:21 06/06/21 08:33 06/06/21 03:21 06/06/21 10:12 Temperature -Last 24 Hours Temperature 99.4 F Temperature 98.3 F Results - Labs CBC & Chem 7: 06/04/21 07:15 06/04/21 07:15 Assessment and Plan Cultures: COVID positive Assessment: #Severe COVID-19 pneumonia: Patient presented with a week of symptoms, chest x- ray with diffuse bilateral infiltrates. Inflammatory markers elevated #Acute hypoxemic respiratory failure: Likely secondary to COVID-19 infection. Currently on 7L NC #Leukopenia: likely secondary to COVID Recommendations: -Dexamethasone 6 mg IV/PO daily for 10 days -Remdesivir 200 mg IV q day x 1 followed by 100 mg IV q day x 4 days -Obtain q48-72h inflammatory markers - ferritin, Ddimer, CRP, LDH -Stopped antibiotics due to normal procalcitonin -Anticoagulation per hospital protocol -Proning as able Thank you for the consult, we will continue to follow. MD [facility] O: [phone] F: [phone]
[2021-06-06] MEDS: dexAMETHasone 4 MG/ML VIAL IV SCH (13:58)
[2021-06-06] MEDS ORDERED: REMDESIVIR 200 MG in SODIUM CHLORIDE 0.9% 250ML 250 ML IV ONE (14:30)
[2021-06-06] MEDS: CHOLECALCIFEROL (VIT D3) 5,000 UNIT TAB PO SCH (14:46)
[2021-06-06] MEDS: ASCORBIC ACID 500 MG TAB PO SCH ×2 (14:46→22:37)
[2021-06-06] MEDS: SODIUM CHLORIDE 0.9% 50 ML IVPB IV SCH (14:46)
--- NOTE | 2021-06-06 15:31 | Progress Note ---
Assessment and Plan 50-year-old female past medical history obesity, coronary artery disease with history of STEMI, myalgia, presented to hospital complaining of chest pain associated with nausea and vomiting. She has not vaccinated against Covid. Afebrile since admission with a white count of 3.1. Tested positive for Covid. Patient has normal renal function and normal procalcitonin. Currently on supplemental oxygen with nasal cannula. Chest CT: Bilateral pneumonia Assessment and plan -- Acute respiratory failure with hypoxia Due to COVID-19 pneumonia Patient is on 7 L nasal cannula oxygen Adjust oxygen as necessary -- Bilateral pneumonia with COVID-19 DC IV Zithromax and IV Rocephin as procalcitonin is normal Patient initiated on empiric steroid and remdesivir ID and pulmonary consulted Continue to follow inflammatory markers Wean off O2 as tolerated -- Acute chest pain, likely due to underlying pneumonia Cardiac enzymes are negative Atypical chest pain per cardiology -- HLD (hyperlipidemia) Continue statins, follow LFT -- HTN (hypertension) Continue antihypertensives and adjust medications as necessary -- CAD (coronary artery disease) Continue Plavix and aspirin and isosorbide mononitrate -- DVT prophylaxis Lovenox and GI prophylaxis Daily clinical course: 06/04/2021 Patient is Covid positive Cardiology consult requested with chest pain 06/05/2021 Patient is on 5 L nasal cannula oxygen Chest pain is atypical Cardiology consult appreciated 06/06/21: Patient on 7 L nasal cannula today, ID consulted, initiated on remdesivir dexamethasone, continue to follow inflammatory markers Subjective Date of service: 06/06/21 Principal diagnosis: COVID pneumonia, acute respiratory failure with hypoxia Interval history: Patient seen and examined. Medical records and medication list reviewed. No acute event overnight noted by the RN. Patient complains of difficulty breathing and remains on nasal cannula O2. Patient is tolerating diet. Discussed plan of care at bedside with patient. Objective - Exam Narrative Exam: Limited physical exam due to COVID-19 pandemic to minimize transmission of the disease and to preserve PPE. Vital reviewed and stable. GENERAL: well-developed morbidly obese -[place] female lying on bed appeared to be in no discomfort. HEENT: Normocephalic. Atraumatic. NECK: Supple. CHEST/LUNGS: breathing nonlabored. HEART/CARDIOVASCULAR: Heart rate stable on telemetry ABDOMEN: Visibly not distended SKIN: There is no rash NEURO: No focal motor deficit. Follows command. MUSCULOSKELETAL: No joint effusion EXTRIMITY: No swelling, no cyanosis or clubbing. PSYCH: Cooperative. - Constitutional Vitals: Vital Signs - 12hr 06/06/21 06/06/21 08:33 10:12 Respiratory 16 Rate O2 Sat by Pulse 93 96 Oximetry - Labs CBC & Chem 7: 06/04/21 07:15 06/09/21 06:45 HEART Score - HEART Score EKG: Non-specific Age: 45-65 Risk factors: > 3 risk factors or hx of atherosclerotic disease Troponin: Troponin T < 0.010 ng/mL (0.00-0.029) 06/03/21 16:47 Troponin: < normal limit - Critical Actions Critical Actions: 4-6 pts:12-16.6% risk of adverse cardiac event. Should be admitted
[2021-06-06] MEDS: ZINC SULFATE 220 MG CAP PO SCH (22:38)
[2021-06-07 06:36] LABS: Alanine Aminotransferase 18 units/L (7-56); Blood Urea Nitrogen 15 mg/dL (7-17); Hemolysis Index 2
[2021-06-07 06:46] LABS: BUN/Creatinine Ratio 25
--- NOTE | 2021-06-07 09:05 | Progress Note ---
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 Otherwise, conservative cardiac management. Subjective Date of service: 06/07/21 Principal diagnosis: COVID pneumonia, acute respiratory failure with hypoxia Interval history: No cardiac events reported. Objective Vital Signs Temp Pulse Resp BP Pulse Ox 06/07/21 04:43 98.2 F 84 18 134/100 100 06/07/21 03:08 100 06/06/21 22:00 96 06/06/21 21:03 98.2 F 18 84/59 06/06/21 20:00 16 93 06/06/21 15:34 98.7 F 90 20 96/67 97 06/06/21 10:12 96 - Physical Examination Narrative exam: Deferred due to isolation protocol. General: No Apparent Distress Cardiac: Positive: Reg Rate and Rhythm Neuro: Positive: Grossly Intact - Labs and Meds Cardiac Enzymes 06/07/21 Range/Units 05:16 AST 40 (5-40) units/L Comprehensive Metabolic Panel 06/07/21 Range/Units 05:16 Sodium 133 L (137-145) mmol/L Potassium 3.9 (3.6-5.0) mmol/L Chloride 94.8 L (98-107) mmol/L Carbon Dioxide 29 (22-30) mmol/L BUN 15 (7-17) mg/dL Creatinine 0.6 (0.6-1.2) mg/dL Glucose 133 H (65-100) mg/dL Calcium 9.0 (8.4-10.2) mg/dL AST 40 (5-40) units/L ALT 18 (7-56) units/L Alkaline Phosphatase 94 (35-129) units/L Total Protein 7.3 (6.3-8.2) g/dL Albumin 3.0 L (3.9-5) g/dL <FABIAN DUNCAN - Last Filed: 06/08/21 11:30> Assessment and Plan - Patient Problems (1) CAD (coronary artery disease) Current Visit: Yes Status: Acute Subjective Interval history: I SAW THIS PT & AGREE WITH THE Dx & Tx PLAN. Objective Vital Signs Temp Pulse Resp BP Pulse Ox 06/08/21 06:04 97.4 F L 76 20 123/79 94 06/07/21 22:55 98.0 F 82 20 122/88 95 06/07/21 22:00 20 100 06/07/21 19:00 95 06/07/21 16:01 97.4 F L 90 18 116/82 97 06/07/21 13:44 95 06/07/21 11:56 97.5 F L 76 18 115/81 95 - Labs and Meds Cardiac Enzymes 06/08/21 Range/Units 05:47 AST 41 H (5-40) units/L Comprehensive Metabolic Panel 06/08/21 Range/Units 05:47 Sodium 136 L (137-145) mmol/L Potassium 4.0 (3.6-5.0) mmol/L Chloride 98.1 (98-107) mmol/L Carbon Dioxide 30 (22-30) mmol/L BUN 13 (7-17) mg/dL Creatinine 0.6 (0.6-1.2) mg/dL Glucose 117 H (65-100) mg/dL Calcium 9.0 (8.4-10.2) mg/dL AST 41 H (5-40) units/L ALT 21 (7-56) units/L Alkaline Phosphatase 86 (35-129) units/L Total Protein 6.9 (6.3-8.2) g/dL Albumin 2.7 L (3.9-5) g/dL
[2021-06-07] MEDS: METOPROLOL TARTRATE 50 MG TAB PO SCH ×2 (09:45→21:42)
[2021-06-07] MEDS: CHOLECALCIFEROL (VIT D3) 5,000 UNIT TAB PO SCH (09:45)
[2021-06-07] MEDS: FAMOTIDINE 20 MG/2 ML INJ IV SCH ×2 (09:45→21:42)
[2021-06-07] MEDS: ASCORBIC ACID 500 MG TAB PO SCH ×2 (09:45→21:43)
[2021-06-07] MEDS: CLOPIDOGREL 75 MG TAB PO SCH (09:46)
[2021-06-07] MEDS: HEPARIN 5,000 UNIT/1 ML VIAL SUB-Q SCH ×2 (09:46→21:41)
[2021-06-07] MEDS: ZINC SULFATE 220 MG CAP PO SCH ×2 (09:46→21:43)
[2021-06-07] MEDS: dexAMETHasone 4 MG/ML VIAL IV SCH (09:46)
[2021-06-07] MEDS: ASPIRIN EC 325 MG TAB PO SCH (09:46)
--- NOTE | 2021-06-07 14:56 | Progress Note ---
Assessment and Plan Cultures: COVID positive Assessment: #Severe COVID-19 pneumonia: Patient presented with a week of symptoms, chest x- ray with diffuse bilateral infiltrates. Inflammatory markers elevated #Acute hypoxemic respiratory failure: Likely secondary to COVID-19 infection. Currently on 7L NC #Leukopenia: likely secondary to COVID Recommendations: -Dexamethasone 6 mg IV/PO daily for 10 days -Remdesivir 200 mg IV q day x 1 followed by 100 mg IV q day x 4 days -Obtain q48-72h inflammatory markers - ferritin, Ddimer, CRP, LDH -Antibiotics not needed due to normal procalcitonin -Anticoagulation per hospital protocol -Proning as able Thank you for the consult, we will continue to follow. Hermila Hunter MD [facility] ([facility]) O: [phone] F: [phone] Subjective Date of service: 06/07/21 Principal diagnosis: COVID pneumonia, acute respiratory failure with hypoxia Interval history: Afebrile, white count remains low.. Currently on 7 L nasal cannula Objective - Exam Narrative Exam: Physical exam deferred to reduce risk of transmission of COVID-19. Please refer to primary team's note. - Constitutional Vitals: Vital Signs Temp Pulse Resp BP Pulse Ox 98.2 F 105 H 18 134/100 95 06/07/21 04:43 06/07/21 09:45 06/07/21 04:43 06/07/21 04:43 06/07/21 13:44 Temperature -Last 24 Hours Temperature 98.2 F Temperature 98.2 F Temperature 98.7 F - Labs CBC & Chem 7: 06/04/21 07:15 06/07/21 05:16 Labs: Abnormal lab results 06/07/21 06/07/21 Range/Units 05:16 07:59 Sodium 133 L (137-145) mmol/L Chloride 94.8 L (98-107) mmol/L Glucose 133 H (65-100) mg/dL POC Glucose 132 H (70-105) mg/dL Albumin 3.0 L (3.9-5) g/dL
--- NOTE | 2021-06-07 15:45 | Progress Note ---
Assessment and Plan 50-year-old female past medical history obesity, coronary artery disease with history of STEMI, myalgia, presented to hospital complaining of chest pain associated with nausea and vomiting. She has not vaccinated against Covid. Afebrile since admission with a white count of 3.1. Tested positive for Covid. Patient has normal renal function and normal procalcitonin. Currently on supplemental oxygen with nasal cannula. Chest CT: Bilateral pneumonia Assessment and plan -- Acute respiratory failure with hypoxia Due to COVID-19 pneumonia Patient is on supplemental O2 with nasal cannula oxygen Adjust oxygen as necessary -- Bilateral pneumonia with COVID-19 DC IV Zithromax and IV Rocephin as procalcitonin is normal Patient initiated on empiric steroid and remdesivir ID and pulmonary consulted Continue to follow inflammatory markers Wean off O2 as tolerated -- Acute chest pain, likely due to underlying pneumonia Cardiac enzymes are negative Atypical chest pain per cardiology -- HLD (hyperlipidemia) Continue statins, follow LFT -- HTN (hypertension) Continue antihypertensives and adjust medications as necessary -- CAD (coronary artery disease) Continue Plavix and aspirin and isosorbide mononitrate -- DVT prophylaxis Lovenox and GI prophylaxis Daily clinical course: 06/04/2021 Patient is Covid positive Cardiology consult requested with chest pain 06/05/2021 Patient is on 5 L nasal cannula oxygen Chest pain is atypical Cardiology consult appreciated 06/06/21: Patient on 7 L nasal cannula today, ID consulted, initiated on remdesivir dexamethasone, continue to follow inflammatory markers 06/07/21: Patient on 10 L nasal cannula O2 today, continue remdesivir and dexamethasone, ID and pulmonary care following. Continue to follow inflammatory markers are elevated off O2 as tolerated. Subjective Date of service: 06/07/21 Principal diagnosis: COVID pneumonia, acute respiratory failure with hypoxia Interval history: Patient seen and examined. Medical records and medication list reviewed. No acute event overnight noted by the RN. Patient complains of difficulty breathing and remains on nasal cannula O2. Patient is tolerating diet. Discussed plan of care at bedside with patient. Objective - Exam Narrative Exam: Limited physical exam due to COVID-19 pandemic to minimize transmission of the disease and to preserve PPE. Vital reviewed and stable. GENERAL: well-developed morbidly obese -[place]ish female lying on bed appeared to be in no discomfort. HEENT: Normocephalic. Atraumatic. NECK: Supple. CHEST/LUNGS: breathing nonlabored. HEART/CARDIOVASCULAR: Heart rate stable on telemetry ABDOMEN: Visibly not distended SKIN: There is no rash NEURO: No focal motor deficit. Follows command. MUSCULOSKELETAL: No joint effusion EXTRIMITY: No swelling, no cyanosis or clubbing. PSYCH: Cooperative. - Constitutional Vitals: Vital Signs - 12hr 06/07/21 06/07/21 06/07/21 04:43 09:45 13:44 Temperature 98.2 F Pulse Rate 84 105 H Respiratory 18 Rate Blood Pressure 134/100 O2 Sat by Pulse 100 95 Oximetry - Labs CBC & Chem 7: 06/04/21 07:15 06/09/21 06:45 Labs: Abnormal lab results 06/07/21 06/07/21 Range/Units 05:16 07:59 Sodium 133 L (137-145) mmol/L Chloride 94.8 L (98-107) mmol/L Glucose 133 H (65-100) mg/dL POC Glucose 132 H (70-105) mg/dL Albumin 3.0 L (3.9-5) g/dL HEART Score - HEART Score EKG: Non-specific Age: 45-65 Risk factors: > 3 risk factors or hx of atherosclerotic disease Troponin: Troponin T < 0.010 ng/mL (0.00-0.029) 06/03/21 16:47 Troponin: < normal limit - Critical Actions Critical Actions: 4-6 pts:12-16.6% risk of adverse cardiac event. Should be admitted
[2021-06-07] MEDS: guaiFENesin ER 600 MG TAB PO SCH ×2 (17:00→21:42)
[2021-06-07] MEDS: REMDESIVIR 100 MG in SODIUM CHLORIDE 0.9% 250ML 250 ML IV SCH (21:41)
[2021-06-07] MEDS: SODIUM CHLORIDE 0.9% 50 ML IVPB IV SCH (21:41)
[2021-06-07] MEDS: BACLOFEN 10 MG TAB PO PRN (21:42)
[2021-06-08 07:08] LABS: Alanine Aminotransferase 21 units/L (7-56); Albumin 2.7 g/dL (3.9-5); Blood Urea Nitrogen 13 mg/dL (7-17); Hemolysis Index 31
[2021-06-08 07:29] LABS: BUN/Creatinine Ratio 22
--- NOTE | 2021-06-08 09:23 | Consultation ---
History of Present Illness Consult date: 06/08/21 Requesting physician: KAREN BAXTER Reason for consult: pneumonia, other (Acute Hyopoxemic Respiratory Failure; COVID-19 infection) History of present illness: PULMONARY/CCM CONSULT NOTE (Full dictation # [id number]) Please see dictated notes for full details Past History Past Medical History: CAD, hypertension, hyperlipidemia Past Surgical History: No surgical history Social history: no significant social history Family history: no significant family history Medications and Allergies Allergies Allergy/AdvReac Type Severity Reaction Status Date / Time lisinopril Allergy Swelling Verified 01/09/21 14:37 Home Medications Medication Instructions Recorded Confirmed Last Taken Type Baclofen [Lioresal] 10 mg PO BID PRN 01/09/21 06/06/21 06/04/21 22:00 History HYDROcodone/Acetaminop 7.5-325 7.5 mg PO Q6H PRN 01/09/21 06/06/21 06/05/21 13:45 History [[place] 7.5-325 mg per 15 ML] Aspirin EC [Ecotrin] 325 mg PO QDAY #30 tablet 01/11/21 06/06/21 06/06/21 02:08 Rx AtorvaSTATin [Lipitor] 40 mg PO QHS #30 tablet 01/11/21 06/06/21 06/05/21 22:00 Rx Clopidogrel [Plavix] 75 mg PO QDAY #30 tablet 01/11/21 06/06/21 06/05/21 13:45 Rx ISOSORBIDE MONOnitrate [Imdur ER] 30 mg PO QDAY #30 tablet 01/11/21 Unknown Rx Metoprolol [Lopressor TAB] 50 mg PO BID #60 tablet 01/11/21 06/06/21 06/05/21 23:00 Rx Active Meds: Active Medications Acetaminophen (Acetaminophen 325 Mg Tab) 650 mg PO Q4H PRN PRN Reason: Pain MILD(1-3)/Fever >100.5/ETIENNE Last Admin: 06/05/21 23:22 Dose: 650 mg Documented by: Ascorbic Acid (Ascorbic Acid 500 Mg Tab) 1,000 mg PO BID [facility] Last Admin: 06/07/21 21:43 Dose: 1,000 mg Documented by: Aspirin (Aspirin Ec 325 Mg Tab) 325 mg PO QDAY [facility] Last Admin: 06/07/21 09:46 Dose: 325 mg Documented by: Atorvastatin Calcium (Atorvastatin 40 Mg Tab) 40 mg PO QHS [facility] Last Admin: 06/07/21 21:43 Dose: 40 mg Documented by: Baclofen (Baclofen 10 Mg Tab) 10 mg PO BID PRN PRN Reason: Inflammation Last Admin: 06/07/21 21:42 Dose: 10 mg Documented by: Cholecalciferol (Cholecalciferol (Vit D3) 5,000 Unit Tab) 5,000 unit PO DAILY [facility] Last Admin: 06/07/21 09:45 Dose: 5,000 unit Documented by: Clopidogrel Bisulfate (Clopidogrel 75 Mg Tab) 75 mg PO QDAY [facility] Last Admin: 06/07/21 09:46 Dose: 75 mg Documented by: Dexamethasone (Dexamethasone 4 Mg/Ml Vial) 6 mg IV Q24HR [facility] Stop: 06/15/21 10:01 Last Admin: 06/07/21 09:46 Dose: 6 mg Documented by: Famotidine (Famotidine 20 Mg/2 Ml Inj) 20 mg IV BID [facility] Last Admin: 06/07/21 21:42 Dose: 20 mg Documented by: Guaifenesin (Guaifenesin Er 600 Mg Tab) 600 mg PO BID [facility] Last Admin: 06/07/21 21:42 Dose: 600 mg Documented by: Heparin Sodium (Porcine) (Heparin 5,000 Unit/1 Ml Vial) 5,000 unit SUB-Q Q12HR [facility] Last Admin: 06/07/21 21:41 Dose: 5,000 unit Documented by: Hydromorphone HCl (Hydromorphone 1 Mg/1 Ml Inj) 0.5 mg IV Q3H PRN PRN Reason: Pain , Severe (7-10) Last Admin: 06/04/21 20:10 Dose: 0.5 mg Documented by: REMDESIVIR 100 mg/ Sodium (Chloride) 250 mls @ 500 mls/hr IV Q24HR@2100 [facility] Stop: 06/10/21 21:29 Last Admin: 06/07/21 21:41 Dose: 500 mls/hr Documented by: Isosorbide Mononitrate (Isosorbide Mononitrate Er 30 Mg Tab) 30 mg PO QDAY [facility] Last Admin: 06/07/21 09:46 Dose: 30 mg Documented by: Metoclopramide HCl (Metoclopramide 10 Mg/2 Ml Inj) 10 mg IV Q6H PRN PRN Reason: Nausea And Vomiting Metoprolol Tartrate (Metoprolol Tartrate 50 Mg Tab) 50 mg PO BID [facility] Last Admin: 06/07/21 21:42 Dose: 50 mg Documented by: Ondansetron HCl (Ondansetron 4 Mg/2 Ml Inj) 4 mg IV Q8H PRN PRN Reason: Nausea And Vomiting Last Admin: 06/06/21 09:58 Dose: 4 mg Documented by: Oxycodone/Acetaminophen (Oxycodone /Acetaminophen 5-325mg Tab) 1 tab PO Q6H PRN PRN Reason: Pain, Moderate (4-6) Last Admin: 06/05/21 13:58 Dose: 1 tab Documented by: Sodium Chloride (Sodium Chloride 0.9% 10 Ml Flush Syringe) 10 ml IV BID [facility] Last Admin: 06/07/21 21:43 Dose: 10 ml Documented by: Sodium Chloride (Sodium Chloride 0.9% 10 Ml Flush Syringe) 10 ml IV PRN PRN PRN Reason: LINE FLUSH Sodium Chloride (Sodium Chloride 0.9% 50 Ml Ivpb) 50 ml IV Q24HR@2100 [facility] Stop: 06/10/21 21:01 Last Admin: 06/07/21 21:41 Dose: 50 ml Documented by: Zinc Sulfate (Zinc Sulfate 220 Mg Cap) 220 mg PO BID [facility] Last Admin: 06/07/21 21:43 Dose: 220 mg Documented by: Physical Examination Vital signs: Vital Signs Pulse Resp BP Pulse Ox 121 H 22 105/84 93 06/03/21 12:17 06/03/21 12:17 06/03/21 12:17 06/03/21 12:17 Results - Laboratory Findings CBC and BMP: 06/04/21 07:15 06/08/21 05:47 PT/INR, D-dimer PT 13.5 Sec. (12.2-14.9) 06/03/21 12:23 INR 0.97 (0.87-1.13) 06/03/21 12:23 D-Dimer 900.32 ng/mlDDU (0-234) H 06/03/21 12:23 Abnormal lab findings: Abnormal Labs 06/03/21 06/03/21 06/03/21 12:23 12:23 12:23 WBC RBC 5.44 H Hgb 16.1 H Hct 47.4 H Lymph % (Auto) 10.4 L Reagan % (Auto) 8.7 H Lymph # (Auto) 0.5 L Seg Neutrophils % 80.8 H D-Dimer Sodium 128 L Potassium 3.4 L Chloride 86.9 L BUN 24 H Glucose 118 H POC Glucose Hemoglobin A1c Ferritin AST 75 H Lactate Dehydrogenase Total Creatine Kinase 681 H C-Reactive Protein NT-Pro-B Natriuret Pep Albumin 3.2 L Coronavirus (PCR) 06/03/21 06/03/21 06/03/21 12:23 13:31 13:41 WBC RBC Hgb Hct Lymph % (Auto) Reagan % (Auto) Lymph # (Auto) Seg Neutrophils % D-Dimer 900.32 H Sodium Potassium Chloride BUN Glucose POC Glucose Hemoglobin A1c Ferritin 2196.0 H AST Lactate Dehydrogenase Total Creatine Kinase C-Reactive Protein NT-Pro-B Natriuret Pep 467.5 H Albumin Coronavirus (PCR) 06/03/21 06/04/21 06/04/21 13:43 01:34 07:15 WBC 3.1 L RBC 5.59 H Hgb 16.6 H Hct 49.5 H Lymph % (Auto) Reagan % (Auto) 10.7 H Lymph # (Auto) 0.4 L Seg Neutrophils % 74.2 H D-Dimer Sodium Potassium Chloride BUN Glucose 114 H POC Glucose Hemoglobin A1c Ferritin AST Lactate Dehydrogenase 1082 H Total Creatine Kinase 577 H C-Reactive Protein 7.90 H NT-Pro-B Natriuret Pep Albumin Coronavirus (PCR) 06/04/21 06/04/21 06/04/21 07:15 07:15 07:15 WBC RBC Hgb Hct Lymph % (Auto) Reagan % (Auto) Lymph # (Auto) Seg Neutrophils % D-Dimer Sodium 130 L Potassium Chloride 90.5 L BUN 30 H Glucose 148 H POC Glucose Hemoglobin A1c 6.7 H Ferritin AST 60 H Lactate Dehydrogenase Total Creatine Kinase 495 H C-Reactive Protein NT-Pro-B Natriuret Pep Albumin 3.7 L Coronavirus (PCR) 06/04/21 06/04/21 06/07/21 08:52 14:54 05:16 WBC RBC Hgb Hct Lymph % (Auto) Reagan % (Auto) Lymph # (Auto) Seg Neutrophils % D-Dimer Sodium 133 L Potassium Chloride 94.8 L BUN Glucose 133 H POC Glucose Hemoglobin A1c Ferritin AST Lactate Dehydrogenase Total Creatine Kinase 358 H C-Reactive Protein NT-Pro-B Natriuret Pep Albumin 3.0 L Coronavirus (PCR) Positive A 06/07/21 06/08/21 07:59 05:47 WBC RBC Hgb Hct Lymph % (Auto) Reagan % (Auto) Lymph # (Auto) Seg Neutrophils % D-Dimer Sodium 136 L Potassium Chloride BUN Glucose 117 H POC Glucose 132 H Hemoglobin A1c Ferritin AST 41 H Lactate Dehydrogenase Total Creatine Kinase C-Reactive Protein NT-Pro-B Natriuret Pep Albumin 2.7 L Coronavirus (PCR)
--- NOTE | 2021-06-08 10:08 | Progress Note ---
<JUAN JOSÉ DELGADO - Last Filed: 06/08/21 10:08> Assessment and Plan Atypical chest pain, associated with coughing secondary to pneumonia COVID 19 Pneumonia negative VQ scan Old inferior ST elevation [place] s/p PCI 01/2021; on plavix and aspirin LVEF 45-50% by echo 01/2021 Hypertension Hyperlipidemia Obesity Continue medical therapy for coronary artery disease. Otherwise, conservative cardiac management. Subjective Date of service: 06/08/21 Principal diagnosis: COVID pneumonia, acute respiratory failure with hypoxia Interval history: No cardiac events reported. Objective Vital Signs Temp Pulse Resp BP Pulse Ox 06/08/21 06:04 97.4 F L 76 20 123/79 94 06/07/21 22:55 98.0 F 82 20 122/88 95 06/07/21 22:00 20 100 06/07/21 19:00 95 06/07/21 16:01 97.4 F L 90 18 116/82 97 06/07/21 13:44 95 06/07/21 11:56 97.5 F L 76 18 115/81 95 - Physical Examination Narrative exam: Deferred due to isolation protocol. General: No Apparent Distress - Labs and Meds Cardiac Enzymes 06/08/21 Range/Units 05:47 AST 41 H (5-40) units/L Comprehensive Metabolic Panel 06/08/21 Range/Units 05:47 Sodium 136 L (137-145) mmol/L Potassium 4.0 (3.6-5.0) mmol/L Chloride 98.1 (98-107) mmol/L Carbon Dioxide 30 (22-30) mmol/L BUN 13 (7-17) mg/dL Creatinine 0.6 (0.6-1.2) mg/dL Glucose 117 H (65-100) mg/dL Calcium 9.0 (8.4-10.2) mg/dL AST 41 H (5-40) units/L ALT 21 (7-56) units/L Alkaline Phosphatase 86 (35-129) units/L Total Protein 6.9 (6.3-8.2) g/dL Albumin 2.7 L (3.9-5) g/dL <FABIAN DUNCAN - Last Filed: 06/08/21 11:22> Assessment and Plan - Patient Problems (1) CAD (coronary artery disease) Current Visit: Yes Status: Acute Subjective Interval history: I SAW THIS PT & AGREE WITH THE Dx & Tx PLAN. Objective Vital Signs Temp Pulse Resp BP Pulse Ox 06/08/21 06:04 97.4 F L 76 20 123/79 94 06/07/21 22:55 98.0 F 82 20 122/88 95 06/07/21 22:00 20 100 06/07/21 19:00 95 06/07/21 16:01 97.4 F L 90 18 116/82 97 06/07/21 13:44 95 06/07/21 11:56 97.5 F L 76 18 115/81 95 - Labs and Meds Cardiac Enzymes 06/08/21 Range/Units 05:47 AST 41 H (5-40) units/L Comprehensive Metabolic Panel 06/08/21 Range/Units 05:47 Sodium 136 L (137-145) mmol/L Potassium 4.0 (3.6-5.0) mmol/L Chloride 98.1 (98-107) mmol/L Carbon Dioxide 30 (22-30) mmol/L BUN 13 (7-17) mg/dL Creatinine 0.6 (0.6-1.2) mg/dL Glucose 117 H (65-100) mg/dL Calcium 9.0 (8.4-10.2) mg/dL AST 41 H (5-40) units/L ALT 21 (7-56) units/L Alkaline Phosphatase 86 (35-129) units/L Total Protein 6.9 (6.3-8.2) g/dL Albumin 2.7 L (3.9-5) g/dL
--- NOTE | 2021-06-08 12:00 | Progress Note ---
Assessment and Plan Cultures: COVID positive Assessment: #Severe COVID-19 pneumonia: Patient presented with a week of symptoms, chest x- ray with diffuse bilateral infiltrates. Inflammatory markers elevated #Acute hypoxemic respiratory failure: Likely secondary to COVID-19 infection. Currently on 7L NC #Leukopenia: likely secondary to COVID Recommendations: -Dexamethasone 6 mg IV/PO daily for 10 days -Remdesivir 200 mg IV q day x 1 followed by 100 mg IV q day x 4 days -Obtain q48-72h inflammatory markers - ferritin, Ddimer, CRP, LDH -Antibiotics not needed due to normal procalcitonin -Anticoagulation per hospital protocol -Proning as able Thank you for the consult, we will continue to follow. Hermila Hunter MD [facility] ([facility]) O: [phone] F: [phone] Subjective Date of service: 06/08/21 Principal diagnosis: COVID pneumonia, acute respiratory failure with hypoxia Interval history: Afebrile, on 7l NC Objective - Exam Narrative Exam: Physical exam deferred to reduce risk of transmission of COVID-19. Please refer to primary team's note. - Constitutional Vitals: Vital Signs Temp Pulse Resp BP Pulse Ox 97.4 F L 76 20 123/79 94 06/08/21 06:04 06/08/21 06:04 06/08/21 06:04 06/08/21 06:04 06/08/21 06:04 Temperature -Last 24 Hours Temperature 97.4 F Temperature 98.0 F Temperature 97.4 F - Labs CBC & Chem 7: 06/04/21 07:15 06/08/21 05:47 Labs: Abnormal lab results 06/08/21 Range/Units 05:47 Sodium 136 L (137-145) mmol/L Glucose 117 H (65-100) mg/dL AST 41 H (5-40) units/L Albumin 2.7 L (3.9-5) g/dL
[2021-06-08] MEDS: ACETAMINOPHEN 325 MG TAB PO PRN (12:23)
[2021-06-08] MEDS: ZINC SULFATE 220 MG CAP PO SCH ×2 (12:24→22:37)
[2021-06-08] MEDS: guaiFENesin ER 600 MG TAB PO SCH ×2 (12:24→22:33)
[2021-06-08] MEDS: METOPROLOL TARTRATE 50 MG TAB PO SCH ×2 (12:24→22:36)
[2021-06-08] MEDS: ASCORBIC ACID 500 MG TAB PO SCH ×2 (12:24→22:33)
[2021-06-08] MEDS: CHOLECALCIFEROL (VIT D3) 5,000 UNIT TAB PO SCH (12:24)
[2021-06-08] MEDS: FAMOTIDINE 20 MG/2 ML INJ IV SCH ×2 (12:24→22:33)
[2021-06-08] MEDS: HEPARIN 5,000 UNIT/1 ML VIAL SUB-Q SCH ×2 (12:25→22:33)
[2021-06-08] MEDS: CLOPIDOGREL 75 MG TAB PO SCH (12:25)
[2021-06-08] MEDS: ASPIRIN EC 325 MG TAB PO SCH (12:25)
[2021-06-08] MEDS: dexAMETHasone 4 MG/ML VIAL IV SCH (12:25)
--- NOTE | 2021-06-08 16:43 | Progress Note ---
Assessment and Plan 50-year-old female past medical history obesity, coronary artery disease with history of STEMI, myalgia, presented to hospital complaining of chest pain associated with nausea and vomiting. She has not vaccinated against Covid. Afebrile since admission with a white count of 3.1. Tested positive for Covid. Patient has normal renal function and normal procalcitonin. Currently on supplemental oxygen with nasal cannula. Chest CT: Bilateral pneumonia Assessment and plan -- Acute respiratory failure with hypoxia Due to COVID-19 pneumonia Patient is on supplemental O2 with nasal cannula oxygen Adjust oxygen as necessary -- Bilateral pneumonia with COVID-19 DC IV Zithromax and IV Rocephin as procalcitonin is normal Patient initiated on empiric steroid and remdesivir ID and pulmonary consulted Continue to follow inflammatory markers Wean off O2 as tolerated -- Acute chest pain, likely due to underlying pneumonia Cardiac enzymes are negative Atypical chest pain per cardiology -- HLD (hyperlipidemia) Continue statins, follow LFT -- HTN (hypertension) Continue antihypertensives and adjust medications as necessary -- CAD (coronary artery disease) Continue Plavix and aspirin and isosorbide mononitrate --Morbid obesity, associated with poor outcome with Covid infection Dietary and lifestyle modification advice when clinically more stable as outpatient -- DVT prophylaxis Lovenox and GI prophylaxis Daily clinical course: 06/04/2021 Patient is Covid positive Cardiology consult requested with chest pain 06/05/2021 Patient is on 5 L nasal cannula oxygen Chest pain is atypical Cardiology consult appreciated 06/06/21: Patient on 7 L nasal cannula today, ID consulted, initiated on remdesivir dexamethasone, continue to follow inflammatory markers 06/07/21: Patient on 10 L nasal cannula O2 today, continue remdesivir and dexamethasone, ID and pulmonary care following. Continue to follow inflammatory markers are elevated off O2 as tolerated. 06/08/21: Supplemental O2 weaned off to 3 L today. Continue to follow clinically. Continue remdesivir and dexamethasone Subjective Date of service: 06/08/21 Principal diagnosis: COVID pneumonia, acute respiratory failure with hypoxia Interval history: Patient seen and examined. Medical records and medication list reviewed. No acute event overnight noted by the RN. Patient complains of difficulty breathing and remains on nasal cannula O2. Patient is tolerating diet. Discussed plan of care at bedside with patient. Objective - Exam Narrative Exam: Limited physical exam due to COVID-19 pandemic to minimize transmission of the disease and to preserve PPE. Vital reviewed and stable. GENERAL: well-developed morbidly obese -[place]ry[place] female lying on bed appeared to be in no discomfort. HEENT: Normocephalic. Atraumatic. NECK: Supple. CHEST/LUNGS: breathing nonlabored. HEART/CARDIOVASCULAR: Heart rate stable on telemetry ABDOMEN: Visibly not distended SKIN: There is no rash NEURO: No focal motor deficit. Follows command. MUSCULOSKELETAL: No joint effusion EXTRIMITY: No swelling, no cyanosis or clubbing. PSYCH: Cooperative. - Constitutional Vitals: Vital Signs - 12hr 06/08/21 06/08/21 06/08/21 06:04 10:00 11:16 Temperature 97.4 F L 97.7 F Pulse Rate 76 94 H Respiratory 20 18 Rate Blood Pressure 123/79 132/85 O2 Sat by Pulse 94 97 96 Oximetry 06/08/21 06/08/21 12:45 13:38 Temperature Pulse Rate Respiratory Rate Blood Pressure O2 Sat by Pulse 96 94 Oximetry - Labs CBC & Chem 7: 06/04/21 07:15 06/09/21 06:45 Labs: Abnormal lab results 06/08/21 Range/Units 05:47 Sodium 136 L (137-145) mmol/L Glucose 117 H (65-100) mg/dL AST 41 H (5-40) units/L Albumin 2.7 L (3.9-5) g/dL HEART Score - HEART Score EKG: Non-specific Age: 45-65 Risk factors: > 3 risk factors or hx of atherosclerotic disease Troponin: Troponin T < 0.010 ng/mL (0.00-0.029) 06/03/21 16:47 Troponin: < normal limit - Critical Actions Critical Actions: 4-6 pts:12-16.6% risk of adverse cardiac event. Should be admi tted
[2021-06-08] MEDS: SODIUM CHLORIDE 0.9% 50 ML IVPB IV SCH (22:34)
[2021-06-08] MEDS: REMDESIVIR 100 MG in SODIUM CHLORIDE 0.9% 250ML 250 ML IV SCH (22:34)
--- NOTE | 2021-06-09 02:20 | Consultation ---
DATE OF CONSULTATION: 06/08/2021 PULMONARY CRITICAL CARE CONSULT NOTE CONSULTING PHYSICIAN: Dr. Kwon. REASON FOR CONSULTATION: Acute hypoxemic respiratory failure, COVID-19 pneumonia. CHIEF COMPLAINT AND HISTORY OF PRESENT ILLNESS: The patient is a now 50-year-old obese female with past medical history significant for diagnosis of coronary artery disease, has had ST-elevation [place] in the past and now has drug-eluting stents in the RCA, came into the Emergency Room complaining of chest pain with nausea and vomiting. She has a history of baseline chronic shortness of breath. She gives a chest pain value of 7 on a 1-10 scale. She was evaluated in the Emergency Room, and after evaluation, was diagnosed with bilateral pneumonia and suspected COVID-19 infection. She also came in as an acute coronary syndrome. Further testing since revealed that she is actually COVID-19 positive and she remains hypoxemic. We are asked to assist with management. When I stopped by to see her, she was resting in bed, stated that she has had some streaky hemoptysis the night before. Denied any real pleuritic chest pain. Denied nausea, vomiting, fevers or chills. She denied any diarrhea prior to coming into the hospital. She denies history of tobacco use or abuse. She denies any new-onset leg pain or swelling, either unilaterally or bilaterally or any suggestion of a deep venous thrombosis. This really is as much of the history of presentation as I have. PAST MEDICAL HISTORY: Coronary artery disease, fibromyalgia, asthma, obesity hypoventilation syndrome. PAST SURGICAL HISTORY: She has had a tonsillectomy. MEDICATIONS: She was on at the time I stopped by to see were reviewed, pertinent medications include the following: Tylenol 650 mg p.o. q. 4 hours p.r.n. mild pain or fevers, vitamin C 1 gram p.o. b.i.d., aspirin 325 mg p.o. daily, Lipitor 40 mg p.o. at bedtime, vitamin D3 5000 units p.o. daily, Plavix 75 mg p.o. daily, Decadron 6 mg IV daily, Pepcid 20 mg IV b.i.d., Mucinex 600 mg p.o. b.i.d., heparin 5000 units subQ q. 12 hours., Dilaudid 0.5 mg IV q. 3 hours p.r.n. severe pain, Imdur 30 mg p.o. daily, metoprolol 50 mg p.o. b.i.d., Zofran 4 mg IV q. 8 hours p.r.n. nausea and vomiting. She is also on remdesivir, the treatment set five-day protocol. Zinc sulfate 220 mg p.o. b.i.d. ALLERGIES: LISINOPRIL. Nature of this allergy is unknown. DIET: Obese lady, denies acute weight loss or gain in the preceding few weeks to months. FAMILY AND SOCIAL HISTORY: Lives in the community. Denies alcohol, tobacco or illicit drug use or abuse. FAMILY HISTORY: Otherwise noncontributory. REVIEW OF SYSTEMS: No loss of consciousness. No new onset seizures. No new onset focal weakness. Denies gross hematochezia or melena. Denies gross hematuria or dysuria. No hematemesis. She has had streaky hemoptysis. She denies any new onset seizures. Denies any new onset focal weakness. Denies polydipsia or polyuria. Denies heat or cold intolerance. Complete 13-system review of system was obtained. Pertinent positives and/or negatives as in body of history above, otherwise noncontributory. PHYSICAL EXAMINATION: VITAL SIGNS: At presentation, she was afebrile, temperature 97.8 degrees Fahrenheit with a pulse of 84, respiratory rate of 16, blood pressure 95/71, O2 sats were 96%, inspired oxygen concentration at that time was not recorded. When I stopped by to see her, her O2 sats were 97%; however, that was on 7 liters high-flow nasal cannula. GENERAL: She is a middle-aged obese lady. Normocephalic, atraumatic, talking to me with full sentences, but with mildly increased respiratory effort at rest. HEAD, EYES, EARS, NOSE AND THROAT: Anicteric, no conjunctival erythema. Oropharynx was moist. No gross jugular venous distention, no thyromegaly. Grossly, there were no palpable lymph nodes in the supraclavicular or submandibular lymph node chains. LUNGS: Auscultation of both lung gaspar significant for right greater than left, bilateral rales, no wheezing. HEART: Sounds 1 and 2 are heard at the time of my evaluation, regular rate and rhythm without overt rubs or murmurs. ABDOMEN: Soft, full, protuberant. Bowel sounds are positive, nontender, no palpable hepatosplenomegaly. EXTREMITIES: Without overt digital clubbing or cyanosis, no pedal edema. Pedal pulses are 2+ bilaterally. NEUROLOGIC: Pupils are equal, round, reactive to light, about 4 mm. Extraocular muscle movements are intact. She moves all 4 extremities spontaneously. SKIN: Normal turgor in the areas examined without overt cellulitis or rash. Please see the wound care nurses' notes for full description of her skin. PSYCHIATRIC: Mood was normal. Affect was appropriate. She had intact judgment and insight. LABORATORY DATA: From my review are as follows: Admission white cell count 4600, hemoglobin 16.1, hematocrit 47.4, platelet count 178. No manual differential. INR within normal limits. D-dimer elevated at 900. Serum sodium was 128, potassium 3.4, chloride 87, bicarbonate 26, BUN 24, creatinine 1.1, glucose 114. Ferritin was 2196. LDH 1082. CK 681. CRP 7.9. Procalcitonin 0.07. Urine test negative. Coronavirus PCR positive. Two sets of blood cultures, no growth to date. X-ray of the chest at presentation shows scattered patchy infiltrates in both lung gaspar. No overt cardiomegaly, no significant pleural effusions that I can see. No pneumothorax. CT scan of the chest was done, which revealed bilateral patchy pneumonic infiltrates. This is a noncontrast CT scan and the lung windows shows areas of ground-glass opacification, mostly in a peripheral distribution, particularly in the right side. The V/Q scan was low probability. ASSESSMENT: 1. Acute hypoxemic respiratory failure. 2. COVID-19 infection. 3. Bilateral pneumonia, presumably due to above. 4. History of coronary artery disease. 5. Hypertension. 6. Obesity. 7. Fibromyalgia. 8. Obesity hypoventilation syndrome. 9. Hyponatremia. PLAN: I will get bilateral lower extremity Dopplers to complete the venous thromboembolic disorder workup. I would rather have gone with a CT angio, but she did not, she is getting a V/Q scan. I will see if the Dopplers are negative. Depending on her clinical progress going forward, consideration will be given for CT angiogram of the chest. For now, I agree with current therapies and complete remdesivir dosing. Empiric community-acquired pneumonia therapy was apparently given with Rocephin and Zithromax. Otherwise, I will defer to the infectious disease physician for antibiotic therapy. I note the low CRP. We will continue Decadron therapy for at least 10 days. Oxygen will be weaned to keep sats greater than or equal to about 92%. Aspiration precautions will be maintained. I have counseled her to advise friends and family to get the COVID-19 vaccine at the first chance she has. I have advised that she also gets it, as infection does not confer significant immunity to future attacks. Flu and pneumonia vaccination will be addressed per protocol. Thank you very much for the consult. We will follow along and make further recommendations, as picture progresses/becomes clearer. TID: [id number] RECEIPT: [id number] ARRON/KANDACE/NIKIA
[2021-06-09 07:56] LABS: Alanine Aminotransferase 17 units/L (7-56); Albumin 2.9 g/dL (3.9-5); Blood Urea Nitrogen 12 mg/dL (7-17); Hemolysis Index 1
--- NOTE | 2021-06-09 07:58 | Progress Note ---
Assessment and Plan Acute hypoxemic respiratory failure COVID-19 infection Bilateral pneumonia CAD HTN Obesity Fibromyalgia Obesity hypoventilation syndrome Hyponatremia - no new issues today, continue care as below - Remdesivir as per ID/Pulmonary developed protocols (receiving) - continue systemic steroids for severe COVID-19 infection (Decadron) - follow repeat COVID tests results - zinc and vitamin C supplementation - Monitor inflammatory markers per facility protocol - ferritin, Ddimer, CRP - therapeutic anticoagulation per system Protocol based on d-dimer and clinical considerations (VTE prophylaxis) - Continue contact and airborne isolation - continue to wean supplemental oxygen to keep O2 sats > 92% - continue Bronchodilators (PAYAL) with pulm hygiene per RT - continue systemic steroids - avoid nephrotoxins, renally dose all medications - continue mobility protocols to prevent pressure ulcers - PT/OT as tolerated - Wound care per RN/WCT - continue accuchecks with glycemic control per SSI for target blood glucose < 180 mg/dL - tobacco abstinence strongly counseled at the bedside - home oxygen evaluation at discharge - GI & VTE prophylaxis - Flu & pneumovax per protocol - Pulmonary out patient follow up for PFTs and optimization of respiratory status - continue other care per attending / other consultants - prn analgesia per pain score ... re-evaluate in am & prn Subjective Date of service: 06/09/21 Principal diagnosis: Ac hypoxemic resp failure; COVID-19; Pneumonia; OHS; CAD; Hyponatremia Interval history: Patient is seen today for: Acute hypoxemic respiratory failure; COVID-19 infecti on; Bilateral pneumonia; OHS; CAD; Hyponatremia Seen and examined at bedside; 24hour events reviewed; nursing and respiratory care staff consulted; no adverse overnight events reported to me; resting in bed; no hemoptysis; denies acute chest pain Objective Vital Signs - 12hr 06/08/21 06/08/21 22:00 22:36 Pulse Rate 94 H Blood Pressure 120/71 O2 Sat by Pulse 94 Oximetry Constitutional: no acute distress Eyes: non-icteric ENT: oropharynx moist Neck: supple, no lymphadenopathy, no JVD Effort: mildly labored Ascultation: Bilateral: rhonchi Percussion: Bilateral: not dull Cardiovascular: regular rate and rhythm Gastrointestinal: normoactive bowel sounds, soft, non-tender, non-distended Integumentary: normal Extremities: no cyanosis, no edema, pulses normal, no ischemia or petechiae Neurologic: non-focal exam, pupils equal and round, motor strength normal and Psychiatric: mood appropriate, affect normal CBC and BMP: 06/04/21 07:15 06/09/21 06:45 ABG, PT/INR, D-dimer: PT/INR, D-dimer PT 13.5 Sec. (12.2-14.9) 06/03/21 12:23 INR 0.97 (0.87-1.13) 06/03/21 12:23 D-Dimer 900.32 ng/mlDDU (0-234) H 06/03/21 12:23 Abnormal lab findings: Abnormal Labs 06/03/21 06/03/21 06/03/21 12:23 12:23 12:23 WBC RBC 5.44 H Hgb 16.1 H Hct 47.4 H Lymph % (Auto) 10.4 L [place] % (Auto) 8.7 H Lymph # (Auto) 0.5 L Seg Neutrophils % 80.8 H D-Dimer Sodium 128 L Potassium 3.4 L Chloride 86.9 L BUN 24 H Glucose 118 H POC Glucose Hemoglobin A1c Ferritin AST 75 H Lactate Dehydrogenase Total Creatine Kinase 681 H C-Reactive Protein NT-Pro-B Natriuret Pep Albumin 3.2 L Coronavirus (PCR) 06/03/21 06/03/21 06/03/21 12:23 13:31 13:41 WBC RBC Hgb Hct Lymph % (Auto) [place] % (Auto) Lymph # (Auto) Seg Neutrophils % D-Dimer 900.32 H Sodium Potassium Chloride BUN Glucose POC Glucose Hemoglobin A1c Ferritin 2196.0 H AST Lactate Dehydrogenase Total Creatine Kinase C-Reactive Protein NT-Pro-B Natriuret Pep 467.5 H Albumin Coronavirus (PCR) 06/03/21 06/04/21 06/04/21 13:43 01:34 07:15 WBC 3.1 L RBC 5.59 H Hgb 16.6 H Hct 49.5 H Lymph % (Auto) [place] % (Auto) 10.7 H Lymph # (Auto) 0.4 L Seg Neutrophils % 74.2 H D-Dimer Sodium Potassium Chloride BUN Glucose 114 H POC Glucose Hemoglobin A1c Ferritin AST Lactate Dehydrogenase 1082 H Total Creatine Kinase 577 H C-Reactive Protein 7.90 H NT-Pro-B Natriuret Pep Albumin Coronavirus (PCR) 06/04/21 06/04/21 06/04/21 07:15 07:15 07:15 WBC RBC Hgb Hct Lymph % (Auto) [place] % (Auto) Lymph # (Auto) Seg Neutrophils % D-Dimer Sodium 130 L Potassium Chloride 90.5 L BUN 30 H Glucose 148 H POC Glucose Hemoglobin A1c 6.7 H Ferritin AST 60 H Lactate Dehydrogenase Total Creatine Kinase 495 H C-Reactive Protein NT-Pro-B Natriuret Pep Albumin 3.7 L Coronavirus (PCR) 06/04/21 06/04/21 06/07/21 08:52 14:54 05:16 WBC RBC Hgb Hct Lymph % (Auto) [place] % (Auto) Lymph # (Auto) Seg Neutrophils % D-Dimer Sodium 133 L Potassium Chloride 94.8 L BUN Glucose 133 H POC Glucose Hemoglobin A1c Ferritin AST Lactate Dehydrogenase Total Creatine Kinase 358 H C-Reactive Protein NT-Pro-B Natriuret Pep Albumin 3.0 L Coronavirus (PCR) Positive A 06/07/21 06/08/21 07:59 05:47 WBC RBC Hgb Hct Lymph % (Auto) [place] % (Auto) Lymph # (Auto) Seg Neutrophils % D-Dimer Sodium 136 L Potassium Chloride BUN Glucose 117 H POC Glucose 132 H Hemoglobin A1c Ferritin AST 41 H Lactate Dehydrogenase Total Creatine Kinase C-Reactive Protein NT-Pro-B Natriuret Pep Albumin 2.7 L Coronavirus (PCR) Chest x-ray: pending Allied health notes reviewed: nursing
[2021-06-09 08:02] LABS: BUN/Creatinine Ratio 20
[2021-06-09] MEDS: ASCORBIC ACID 500 MG TAB PO SCH ×2 (09:37→22:23)
[2021-06-09] MEDS: ASPIRIN EC 325 MG TAB PO SCH (09:37)
[2021-06-09] MEDS: CHOLECALCIFEROL (VIT D3) 5,000 UNIT TAB PO SCH (09:37)
[2021-06-09] MEDS: CLOPIDOGREL 75 MG TAB PO SCH (09:37)
[2021-06-09] MEDS: guaiFENesin ER 600 MG TAB PO SCH ×2 (09:37→22:24)
[2021-06-09] MEDS: ZINC SULFATE 220 MG CAP PO SCH (09:37)
[2021-06-09] MEDS: oxyCODONE /ACETAMINOPHEN 5-325MG TAB PO PRN ×2 (09:37→19:34)
[2021-06-09] MEDS: dexAMETHasone 4 MG/ML VIAL IV SCH (09:38)
[2021-06-09] MEDS: HEPARIN 5,000 UNIT/1 ML VIAL SUB-Q SCH ×2 (09:38→22:24)
[2021-06-09] MEDS: FAMOTIDINE 20 MG/2 ML INJ IV SCH ×2 (09:38→22:24)
[2021-06-09] MEDS: METOPROLOL TARTRATE 50 MG TAB PO SCH ×2 (09:41→22:25)
--- NOTE | 2021-06-09 11:05 | Progress Note ---
Assessment and Plan Atypical chest pain, associated with coughing secondary to pneumonia COVID 19 Pneumonia negative VQ scan Old inferior ST elevation PR s/p PCI 01/2021; on plavix and aspirin LVEF 45-50% by echo 01/2021 Hypertension Hyperlipidemia Obesity Continue medical therapy for coronary artery disease. Otherwise, conservative cardiac management. Subjective Date of service: 06/09/21 Principal diagnosis: Ac hypoxemic resp failure; COVID-19; Pneumonia; OHS; CAD; Hyponatremia Interval history: No cardiac events reported. Objective Vital Signs Temp Pulse Resp BP Pulse Ox 06/09/21 09:41 98 H 142/95 06/09/21 09:37 20 06/08/21 22:36 94 H 120/71 06/08/21 22:00 94 06/08/21 16:18 98.6 F 94 H 18 120/71 96 06/08/21 13:38 94 06/08/21 12:45 96 06/08/21 11:16 97.7 F 94 H 18 132/85 96 - Physical Examination Narrative exam: Deferred due to isolation protocol. General: No Apparent Distress Cardiac: Positive: Reg Rate and Rhythm - Labs and Meds Cardiac Enzymes 06/09/21 Range/Units 06:45 AST 34 (5-40) units/L Comprehensive Metabolic Panel 06/09/21 Range/Units 06:45 Sodium 138 (137-145) mmol/L Potassium 3.5 L (3.6-5.0) mmol/L Chloride 100.0 (98-107) mmol/L Carbon Dioxide 30 (22-30) mmol/L BUN 12 (7-17) mg/dL Creatinine 0.6 (0.6-1.2) mg/dL Glucose 94 (65-100) mg/dL Calcium 9.0 (8.4-10.2) mg/dL AST 34 (5-40) units/L ALT 17 (7-56) units/L Alkaline Phosphatase 92 (35-129) units/L Total Protein 6.8 (6.3-8.2) g/dL Albumin 2.9 L (3.9-5) g/dL - Allied health notes Allied health notes reviewed: nursing
--- NOTE | 2021-06-09 11:23 | Progress Note ---
Assessment and Plan Cultures: COVID positive Assessment: #Severe COVID-19 pneumonia: Patient presented with a week of symptoms, chest x- ray with diffuse bilateral infiltrates. Inflammatory markers elevated #Acute hypoxemic respiratory failure: Likely secondary to COVID-19 infection. Currently on 3L NC #Leukopenia: likely secondary to COVID Recommendations: -Dexamethasone 6 mg IV/PO daily for 10 days -Remdesivir 200 mg IV q day x 1 followed by 100 mg IV q day x 4 days -Obtain q48-72h inflammatory markers - ferritin, Ddimer, CRP, LDH -Antibiotics not needed due to normal procalcitonin -Anticoagulation per hospital protocol -Proning as able Thank you for the consult, we will sign off. Please call for questions. Hermila Hunter MD [facility] ([facility]) O: [phone] F: [phone] Subjective Date of service: 06/09/21 Principal diagnosis: Ac hypoxemic resp failure; COVID-19; Pneumonia; OHS; CAD; Hyponatremia Interval history: Afebrile, no acute change. Currently on 3 L nasal cannula. Objective - Exam Narrative Exam: Physical exam deferred to reduce risk of transmission of COVID-19. Please refer to primary team's note. - Constitutional Vitals: Vital Signs Temp Pulse Resp BP Pulse Ox 98.6 F 98 H 20 142/95 94 06/08/21 16:18 06/09/21 09:41 06/09/21 09:37 06/09/21 09:41 06/08/21 22:00 Temperature -Last 24 Hours Temperature 98.6 F - Labs CBC & Chem 7: 06/04/21 07:15 06/09/21 06:45 Labs: Abnormal lab results 06/09/21 Range/Units 06:45 Potassium 3.5 L (3.6-5.0) mmol/L Albumin 2.9 L (3.9-5) g/dL
[2021-06-09] MEDS ORDERED: POTASSIUM CHLORIDE ER 20 MEQ TAB PO SCH (12:00)
--- NOTE | 2021-06-09 16:46 | Progress Note ---
Assessment and Plan 50-year-old female past medical history obesity, coronary artery disease with history of STEMI, myalgia, presented to hospital complaining of chest pain associated with nausea and vomiting. She has not vaccinated against Covid. Afebrile since admission with a white count of 3.1. Tested positive for Covid. Patient has normal renal function and normal procalcitonin. Currently on supplemental oxygen with nasal cannula. Chest CT: Bilateral pneumonia Assessment and plan -- Acute respiratory failure with hypoxia Due to COVID-19 pneumonia Patient is on supplemental O2 with nasal cannula oxygen Adjust oxygen as necessary -- Bilateral pneumonia with COVID-19 DC IV Zithromax and IV Rocephin as procalcitonin is normal Patient initiated on empiric steroid and remdesivir ID and pulmonary consulted Continue to follow inflammatory markers Wean off O2 as tolerated -- Acute chest pain, likely due to underlying pneumonia Cardiac enzymes are negative Atypical chest pain per cardiology -- HLD (hyperlipidemia) Continue statins, follow LFT -- HTN (hypertension) Continue antihypertensives and adjust medications as necessary -- CAD (coronary artery disease) Continue Plavix and aspirin and isosorbide mononitrate --Morbid obesity, associated with poor outcome with Covid infection Dietary and lifestyle modification advice when clinically more stable as outpatient -- DVT prophylaxis Lovenox and GI prophylaxis Daily clinical course: 06/04/2021 Patient is Covid positive Cardiology consult requested with chest pain 06/05/2021 Patient is on 5 L nasal cannula oxygen Chest pain is atypical Cardiology consult appreciated 06/06/21: Patient on 7 L nasal cannula today, ID consulted, initiated on remdesivir dexamethasone, continue to follow inflammatory markers 06/07/21: Patient on 10 L nasal cannula O2 today, continue remdesivir and dexamethasone, ID and pulmonary care following. Continue to follow inflammatory markers are elevated off O2 as tolerated. 06/08/21: Supplemental O2 weaned off to 3 L today. Continue to follow clinically. Continue remdesivir and dexamethasone 06/09/21: Patient is back on 10 to 7 L nasal cannula O2. Continue remdesivir and dexamethasone. Follow inflammatory markers, wean off O2 as tolerated. Subjective Date of service: 06/09/21 Principal diagnosis: Ac hypoxemic resp failure; COVID-19; Pneumonia; OHS; CAD; Hyponatremia Interval history: Patient seen and examined. Medical records and medication list reviewed. No acute event overnight noted by the RN. Patient complains of difficulty breathing and remains on nasal cannula O2. Patient is tolerating diet. Discussed plan of care at bedside with patient. Objective - Exam Narrative Exam: Limited physical exam due to COVID-19 pandemic to minimize transmission of the disease and to preserve PPE. Vital reviewed and stable. GENERAL: well-developed morbidly obese -Citizen Of [place] female lying on bed appeared to be in no discomfort. HEENT: Normocephalic. Atraumatic. NECK: Supple. CHEST/LUNGS: breathing nonlabored. HEART/CARDIOVASCULAR: Heart rate stable on telemetry ABDOMEN: Visibly not distended SKIN: There is no rash NEURO: No focal motor deficit. Follows command. MUSCULOSKELETAL: No joint effusion EXTRIMITY: No swelling, no cyanosis or clubbing. PSYCH: Cooperative. - Constitutional Vitals: Vital Signs - 12hr 06/09/21 06/09/21 06/09/21 09:37 09:41 10:00 Pulse Rate 98 H Respiratory 20 Rate Blood Pressure 142/95 O2 Sat by Pulse 94 Oximetry 06/09/21 12:23 Pulse Rate Respiratory Rate Blood Pressure O2 Sat by Pulse 99 Oximetry - Labs CBC & Chem 7: 06/04/21 07:15 06/09/21 06:45 Labs: Abnormal lab results 06/09/21 Range/Units 06:45 Potassium 3.5 L (3.6-5.0) mmol/L Albumin 2.9 L (3.9-5) g/dL HEART Score - HEART Score EKG: Non-specific Age: 45-65 Risk factors: > 3 risk factors or hx of atherosclerotic disease Troponin: Troponin T < 0.010 ng/mL (0.00-0.029) 06/03/21 16:47 Troponin: < normal limit - Critical Actions Critical Actions: 4-6 pts:12-16.6% risk of adverse cardiac event. Should be admitted
[2021-06-09] MEDS: SODIUM CHLORIDE 0.9% 50 ML IVPB IV SCH (22:23)
[2021-06-09] MEDS: REMDESIVIR 100 MG in SODIUM CHLORIDE 0.9% 250ML 250 ML IV SCH (22:23)
[2021-06-10] MEDS: ZINC SULFATE 220 MG CAP PO SCH ×3 (03:41→22:36)
[2021-06-10] MEDS: METOPROLOL TARTRATE 50 MG TAB PO SCH ×2 (09:47→22:38)
[2021-06-10] MEDS: CLOPIDOGREL 75 MG TAB PO SCH (09:47)
[2021-06-10] MEDS: guaiFENesin ER 600 MG TAB PO SCH ×2 (09:49→22:36)
[2021-06-10] MEDS: CHOLECALCIFEROL (VIT D3) 5,000 UNIT TAB PO SCH (09:49)
[2021-06-10] MEDS: ASPIRIN EC 325 MG TAB PO SCH (09:50)
[2021-06-10] MEDS: HEPARIN 5,000 UNIT/1 ML VIAL SUB-Q SCH ×2 (09:50→22:35)
[2021-06-10] MEDS: FAMOTIDINE 20 MG/2 ML INJ IV SCH ×2 (09:50→22:37)
[2021-06-10] MEDS: dexAMETHasone 4 MG/ML VIAL IV SCH (09:50)
[2021-06-10] MEDS: ASCORBIC ACID 500 MG TAB PO SCH ×2 (09:50→22:36)
--- NOTE | 2021-06-10 11:41 | Progress Note ---
Assessment and Plan Acute hypoxemic respiratory failure COVID-19 infection Bilateral pneumonia CAD HTN Obesity Fibromyalgia Obesity hypoventilation syndrome Hyponatremia - no new issues today, continue care as below - Remdesivir as per ID/Pulmonary developed protocols (receiving) - continue systemic steroids for severe COVID-19 infection (Decadron) - follow repeat COVID tests results - zinc and vitamin C supplementation - Monitor inflammatory markers per facility protocol - ferritin, Ddimer, CRP - therapeutic anticoagulation per system Protocol based on d-dimer and clinical considerations (VTE prophylaxis) - Continue contact and airborne isolation - continue to wean supplemental oxygen to keep O2 sats > 92% - continue Bronchodilators (PAYAL) with pulm hygiene per RT - continue systemic steroids - avoid nephrotoxins, renally dose all medications - continue mobility protocols to prevent pressure ulcers - PT/OT as tolerated - Wound care per RN/WCT - continue accuchecks with glycemic control per SSI for target blood glucose < 180 mg/dL - tobacco abstinence strongly counseled at the bedside - home oxygen evaluation at discharge - GI & VTE prophylaxis - Flu & pneumovax per protocol - Pulmonary out patient follow up for PFTs and optimization of respiratory status - continue other care per attending / other consultants - prn analgesia per pain score ... re-evaluate in am & prn Subjective Date of service: 06/10/21 Principal diagnosis: Ac hypoxemic resp failure; COVID-19; Pneumonia; OHS; CAD; Hyponatremia Interval history: Patient is seen today for: Acute hypoxemic respiratory failure; COVID-19 infecti on; Bilateral pneumonia; OHS; CAD; Hyponatremia Seen and examined at bedside; 24hour events reviewed; nursing and respiratory care staff consulted; no adverse overnight events reported to me; resting in bed; Objective Vital Signs - 12hr 06/10/21 06/10/21 06/10/21 05:16 05:21 09:20 Temperature 97.5 F L Pulse Rate 67 Respiratory 18 Rate Blood Pressure 140/100 O2 Sat by Pulse 100 100 100 Oximetry 06/10/21 06/10/21 09:47 10:00 Temperature Pulse Rate 105 H Respiratory Rate Blood Pressure 142/99 O2 Sat by Pulse 96 Oximetry Constitutional: no acute distress Eyes: non-icteric ENT: oropharynx moist Neck: supple, no lymphadenopathy, no JVD Effort: mildly labored Ascultation: Bilateral: rhonchi Percussion: Bilateral: not dull Cardiovascular: regular rate and rhythm Gastrointestinal: normoactive bowel sounds, soft, non-tender, non-distended Integumentary: normal Extremities: no cyanosis, no edema, pulses normal, no ischemia or petechiae Neurologic: non-focal exam, pupils equal and round, motor strength normal and Psychiatric: mood appropriate, affect normal CBC and BMP: 06/04/21 07:15 06/09/21 06:45 ABG, PT/INR, D-dimer: PT/INR, D-dimer PT 13.5 Sec. (12.2-14.9) 06/03/21 12:23 INR 0.97 (0.87-1.13) 06/03/21 12:23 D-Dimer 900.32 ng/mlDDU (0-234) H 06/03/21 12:23 Abnormal lab findings: Abnormal Labs 06/03/21 06/03/21 06/03/21 12:23 12:23 12:23 WBC RBC 5.44 H Hgb 16.1 H Hct 47.4 H Lymph % (Auto) 10.4 L [place] % (Auto) 8.7 H Lymph # (Auto) 0.5 L Seg Neutrophils % 80.8 H D-Dimer Sodium 128 L Potassium 3.4 L Chloride 86.9 L BUN 24 H Glucose 118 H POC Glucose Hemoglobin A1c Ferritin AST 75 H Lactate Dehydrogenase Total Creatine Kinase 681 H C-Reactive Protein NT-Pro-B Natriuret Pep Albumin 3.2 L Coronavirus (PCR) 06/03/21 06/03/21 06/03/21 12:23 13:31 13:41 WBC RBC Hgb Hct Lymph % (Auto) [place] % (Auto) Lymph # (Auto) Seg Neutrophils % D-Dimer 900.32 H Sodium Potassium Chloride BUN Glucose POC Glucose Hemoglobin A1c Ferritin 2196.0 H AST Lactate Dehydrogenase Total Creatine Kinase C-Reactive Protein NT-Pro-B Natriuret Pep 467.5 H Albumin Coronavirus (PCR) 06/03/21 06/04/21 06/04/21 13:43 01:34 07:15 WBC 3.1 L RBC 5.59 H Hgb 16.6 H Hct 49.5 H Lymph % (Auto) [place] % (Auto) 10.7 H Lymph # (Auto) 0.4 L Seg Neutrophils % 74.2 H D-Dimer Sodium Potassium Chloride BUN Glucose 114 H POC Glucose Hemoglobin A1c Ferritin AST Lactate Dehydrogenase 1082 H Total Creatine Kinase 577 H C-Reactive Protein 7.90 H NT-Pro-B Natriuret Pep Albumin Coronavirus (PCR) 06/04/21 06/04/21 06/04/21 07:15 07:15 07:15 WBC RBC Hgb Hct Lymph % (Auto) [place] % (Auto) Lymph # (Auto) Seg Neutrophils % D-Dimer Sodium 130 L Potassium Chloride 90.5 L BUN 30 H Glucose 148 H POC Glucose Hemoglobin A1c 6.7 H Ferritin AST 60 H Lactate Dehydrogenase Total Creatine Kinase 495 H C-Reactive Protein NT-Pro-B Natriuret Pep Albumin 3.7 L Coronavirus (PCR) 06/04/21 06/04/21 06/07/21 08:52 14:54 05:16 WBC RBC Hgb Hct Lymph % (Auto) [place] % (Auto) Lymph # (Auto) Seg Neutrophils % D-Dimer Sodium 133 L Potassium Chloride 94.8 L BUN Glucose 133 H POC Glucose Hemoglobin A1c Ferritin AST Lactate Dehydrogenase Total Creatine Kinase 358 H C-Reactive Protein NT-Pro-B Natriuret Pep Albumin 3.0 L Coronavirus (PCR) Positive A 06/07/21 06/08/21 06/09/21 07:59 05:47 06:45 WBC RBC Hgb Hct Lymph % (Auto) [place] % (Auto) Lymph # (Auto) Seg Neutrophils % D-Dimer Sodium 136 L Potassium 3.5 L Chloride BUN Glucose 117 H POC Glucose 132 H Hemoglobin A1c Ferritin AST 41 H Lactate Dehydrogenase Total Creatine Kinase C-Reactive Protein NT-Pro-B Natriuret Pep Albumin 2.7 L 2.9 L Coronavirus (PCR) Allied health notes reviewed: nursing
[2021-06-10] MEDS ORDERED: ALBUTEROL 8.5 GM MDI INHALATION IH PRN (16:02)
--- NOTE | 2021-06-10 16:06 | Progress Note ---
Assessment and Plan 50-year-old female past medical history obesity, coronary artery disease with history of STEMI, myalgia, presented to hospital complaining of chest pain associated with nausea and vomiting. She has not vaccinated against Covid. Afebrile since admission with a white count of 3.1. Tested positive for Covid. Patient has normal renal function and normal procalcitonin. Currently on supplemental oxygen with nasal cannula. Chest CT: Bilateral pneumonia Assessment and plan -- Acute respiratory failure with hypoxia Due to COVID-19 pneumonia Patient is on supplemental O2 with nasal cannula oxygen Adjust oxygen as necessary -- Bilateral pneumonia with COVID-19 DC IV Zithromax and IV Rocephin as procalcitonin is normal Patient initiated on empiric steroid and remdesivir ID and pulmonary consulted Continue to follow inflammatory markers Wean off O2 as tolerated -- Acute chest pain, likely due to underlying pneumonia Cardiac enzymes are negative Atypical chest pain per cardiology --Hyponatremia, POA, resolved --Hypokalemia, replete and monitor BMP -- HLD (hyperlipidemia) Continue statins, follow LFT -- HTN (hypertension) Continue antihypertensives and adjust medications as necessary -- CAD (coronary artery disease) Continue Plavix and aspirin and isosorbide mononitrate --Morbid obesity, associated with poor outcome with Covid infection Dietary and lifestyle modification advice when clinically more stable as outpatient -- DVT prophylaxis Lovenox and GI prophylaxis Daily clinical course: 06/04/2021 Patient is Covid positive Cardiology consult requested with chest pain 06/05/2021 Patient is on 5 L nasal cannula oxygen Chest pain is atypical Cardiology consult appreciated 06/06/21: Patient on 7 L nasal cannula today, ID consulted, initiated on remdesivir dexamethasone, continue to follow inflammatory markers 06/07/21: Patient on 10 L nasal cannula O2 today, continue remdesivir and dexamethasone, ID and pulmonary care following. Continue to follow inflammatory markers are elevated off O2 as tolerated. 06/08/21: Supplemental O2 weaned off to 3 L today. Continue to follow clinically. Continue remdesivir and dexamethasone 06/09/21: Patient is back on 10 to 7 L nasal cannula O2. Continue remdesivir and dexamethasone. Follow inflammatory markers, wean off O2 as tolerated. 06/10/21: Patient remains on 7 L nasal cannula O2, last dose of remdesivir today. Patient otherwise clinically stable. Continue to follow inflammatory markers. Due to history of coronary artery disease and morbid obesity patient is high risks for poor outcome. Subjective Date of service: 06/10/21 Principal diagnosis: Ac hypoxemic resp failure; COVID-19; Pneumonia; OHS; CAD; Hyponatremia Interval history: Patient seen and examined. Medical records and medication list reviewed. No acute event overnight noted by the RN. Patient complains of difficulty breathing and remains on nasal cannula O2. Patient is tolerating diet. Discussed plan of care at bedside with patient. Objective - Exam Narrative Exam: Limited physical exam due to COVID-19 pandemic to minimize transmission of the disease and to preserve PPE. Vital reviewed and stable. GENERAL: well-developed morbidly obese -Citizen Of [place] female lying on bed appeared to be in no discomfort. HEENT: Normocephalic. Atraumatic. NECK: Supple. CHEST/LUNGS: breathing nonlabored. HEART/CARDIOVASCULAR: Heart rate stable on telemetry ABDOMEN: Visibly not distended SKIN: There is no rash NEURO: No focal motor deficit. Follows command. MUSCULOSKELETAL: No joint effusion EXTRIMITY: No swelling, no cyanosis or clubbing. PSYCH: Cooperative. - Constitutional Vitals: Vital Signs - 12hr 06/10/21 06/10/21 06/10/21 05:16 05:21 09:20 Temperature 97.5 F L Pulse Rate 67 Respiratory 18 Rate Blood Pressure 140/100 O2 Sat by Pulse 100 100 100 Oximetry 06/10/21 06/10/21 06/10/21 09:47 10:00 11:49 Temperature 97.9 F Pulse Rate 105 H 81 Respiratory 18 Rate Blood Pressure 142/99 138/90 O2 Sat by Pulse 96 93 Oximetry 06/10/21 15:03 Temperature Pulse Rate Respiratory Rate Blood Pressure O2 Sat by Pulse 97 Oximetry - Labs CBC & Chem 7: 06/04/21 07:15 06/09/21 06:45 HEART Score - HEART Score EKG: Non-specific Age: 45-65 Risk factors: > 3 risk factors or hx of atherosclerotic disease Troponin: Troponin T < 0.010 ng/mL (0.00-0.029) 06/03/21 16:47 Troponin: < normal limit - Critical Actions Critical Actions: 4-6 pts:12-16.6% risk of adverse cardiac event. Should be admitted
[2021-06-10] MEDS: REMDESIVIR 100 MG in SODIUM CHLORIDE 0.9% 250ML 250 ML IV SCH (22:35)
[2021-06-10] MEDS: SODIUM CHLORIDE 0.9% 50 ML IVPB IV SCH (22:41)
[2021-06-11 09:41] LABS: Blood Urea Nitrogen 12 mg/dL (7-17); Calcium 8.9 mg/dL (8.4-10.2); Hemolysis Index 43
[2021-06-11 09:49] LABS: BUN/Creatinine Ratio 24
[2021-06-11] MEDS: guaiFENesin ER 600 MG TAB PO SCH ×2 (11:17→21:30)
[2021-06-11] MEDS: ASCORBIC ACID 500 MG TAB PO SCH ×2 (11:17→21:30)
[2021-06-11] MEDS: dexAMETHasone 4 MG/ML VIAL IV SCH (11:18)
[2021-06-11] MEDS: ZINC SULFATE 220 MG CAP PO SCH ×2 (11:18→21:30)
[2021-06-11] MEDS: METOPROLOL TARTRATE 50 MG TAB PO SCH ×2 (11:18→21:39)
[2021-06-11] MEDS: CHOLECALCIFEROL (VIT D3) 5,000 UNIT TAB PO SCH (11:18)
[2021-06-11] MEDS: FAMOTIDINE 20 MG/2 ML INJ IV SCH ×2 (11:18→21:30)
[2021-06-11] MEDS: CLOPIDOGREL 75 MG TAB PO SCH (11:18)
[2021-06-11] MEDS: HEPARIN 5,000 UNIT/1 ML VIAL SUB-Q SCH ×2 (11:18→21:29)
[2021-06-11] MEDS: ASPIRIN EC 325 MG TAB PO SCH (11:18)
--- NOTE | 2021-06-11 12:43 | Progress Note ---
Assessment and Plan 50-year-old female past medical history obesity, coronary artery disease with history of STEMI, myalgia, presented to hospital complaining of chest pain associated with nausea and vomiting. She has not vaccinated against Covid. Afebrile since admission with a white count of 3.1. Tested positive for Covid. Patient has normal renal function and normal procalcitonin. Currently on supplemental oxygen with nasal cannula. Chest CT: Bilateral pneumonia Assessment and plan -- Acute respiratory failure with hypoxia Due to COVID-19 pneumonia Patient is on supplemental O2 with nasal cannula oxygen Adjust oxygen as necessary -- Bilateral pneumonia with COVID-19 DC IV Zithromax and IV Rocephin as procalcitonin is normal Patient initiated on empiric steroid and remdesivir ID and pulmonary consulted Continue to follow inflammatory markers Wean off O2 as tolerated -- Acute chest pain, likely due to underlying pneumonia Cardiac enzymes are negative Atypical chest pain per cardiology --Hyponatremia, POA, resolved --Hypokalemia, replete and monitor BMP -- HLD (hyperlipidemia) Continue statins, follow LFT -- HTN (hypertension) Continue antihypertensives and adjust medications as necessary -- CAD (coronary artery disease) Continue Plavix and aspirin and isosorbide mononitrate --Morbid obesity, associated with poor outcome with Covid infection Dietary and lifestyle modification advice when clinically more stable as outpatient -- DVT prophylaxis Lovenox and GI prophylaxis Daily clinical course: 06/04/2021 Patient is Covid positive Cardiology consult requested with chest pain 06/05/2021 Patient is on 5 L nasal cannula oxygen Chest pain is atypical Cardiology consult appreciated 06/06/21: Patient on 7 L nasal cannula today, ID consulted, initiated on remdesivir dexamethasone, continue to follow inflammatory markers 06/07/21: Patient on 10 L nasal cannula O2 today, continue remdesivir and dexamethasone, ID and pulmonary care following. Continue to follow inflammatory markers are elevated off O2 as tolerated. 06/08/21: Supplemental O2 weaned off to 3 L today. Continue to follow clinically. Continue remdesivir and dexamethasone 06/09/21: Patient is back on 10 to 7 L nasal cannula O2. Continue remdesivir and dexamethasone. Follow inflammatory markers, wean off O2 as tolerated. 06/10/21: Patient remains on 7 L nasal cannula O2, last dose of remdesivir today. Patient otherwise clinically stable. Continue to follow inflammatory markers. Due to history of coronary artery disease and morbid obesity patient is high risks for poor outcome. 06/11/21: Patient remains on 7 L nasal cannula O2 today, plan to wean off aggressively, patient clinically looks much more stable. Continue to follow inflammatory markers. Subjective Date of service: 06/11/21 Principal diagnosis: Ac hypoxemic resp failure; COVID-19; Pneumonia; OHS; CAD; Hyponatremia Interval history: Patient seen and examined. Medical records and medication list reviewed. No acute event overnight noted by the RN. Patient complains of difficulty breathing and remains on nasal cannula O2. Patient is tolerating diet. Discussed plan of care at bedside with patient. Objective - Exam Narrative Exam: Limited physical exam due to COVID-19 pandemic to minimize transmission of the disease and to preserve PPE. Vital reviewed and stable. GENERAL: well-developed morbidly obese -[place] female lying on bed appeared to be in no discomfort. HEENT: Normocephalic. Atraumatic. NECK: Supple. CHEST/LUNGS: breathing nonlabored. HEART/CARDIOVASCULAR: Heart rate stable on telemetry ABDOMEN: Visibly not distended SKIN: There is no rash NEURO: No focal motor deficit. Follows command. MUSCULOSKELETAL: No joint effusion EXTRIMITY: No swelling, no cyanosis or clubbing. PSYCH: Cooperative. - Constitutional Vitals: Vital Signs - 12hr 06/11/21 06/11/21 06/11/21 02:24 05:11 08:28 Temperature 97.9 F Pulse Rate 69 Respiratory 24 Rate Blood Pressure 144/94 O2 Sat by Pulse 100 100 100 Oximetry 06/11/21 06/11/21 11:17 11:18 Temperature Pulse Rate 69 69 Respiratory Rate Blood Pressure 144/94 144/94 O2 Sat by Pulse Oximetry - Labs CBC & Chem 7: 06/12/21 16:38 06/11/21 09:02 Labs: Abnormal lab results 06/11/21 Range/Units 09:02 Creatinine 0.5 L (0.6-1.2) mg/dL HEART Score - HEART Score EKG: Non-specific Age: 45-65 Risk factors: > 3 risk factors or hx of atherosclerotic disease Troponin: Troponin T < 0.010 ng/mL (0.00-0.029) 06/03/21 16:47 Troponin: < normal limit - Critical Actions Critical Actions: 4-6 pts:12-16.6% risk of adverse cardiac event. Should be admitted
[2021-06-11 16:19] LABS: C-Reactive Protein 4.2 mg/dL (0.00-1.30)
[2021-06-12] MEDS: ACETAMINOPHEN 325 MG TAB PO PRN (06:10)
[2021-06-12] MEDS ORDERED: hydrALAZINE 20 MG/1 ML INJ IV ONE (06:12)
--- NOTE | 2021-06-12 09:21 | Progress Note ---
Assessment and Plan 50-year-old female past medical history obesity, coronary artery disease with history of STEMI, myalgia, presented to hospital complaining of chest pain associated with nausea and vomiting. She has not vaccinated against Covid. Afebrile since admission with a white count of 3.1. Tested positive for Covid. Patient has normal renal function and normal procalcitonin. Currently on supplemental oxygen with nasal cannula. Chest CT: Bilateral pneumonia Assessment and plan -- Acute respiratory failure with hypoxia Due to COVID-19 pneumonia Patient is on supplemental O2 with nasal cannula oxygen Adjust oxygen as necessary -- Bilateral pneumonia with COVID-19 DC IV Zithromax and IV Rocephin as procalcitonin is normal Patient initiated on empiric steroid and remdesivir ID and pulmonary consulted Continue to follow inflammatory markers Wean off O2 as tolerated -- Acute chest pain, likely due to underlying pneumonia Cardiac enzymes are negative Atypical chest pain per cardiology --Hyponatremia, POA, resolved --Hypokalemia, replete and monitor BMP -- HLD (hyperlipidemia) Continue statins, follow LFT -- HTN (hypertension) Continue antihypertensives and adjust medications as necessary -- CAD (coronary artery disease) Continue Plavix and aspirin and isosorbide mononitrate --Morbid obesity, associated with poor outcome with Covid infection Dietary and lifestyle modification advice when clinically more stable as outpatient -- DVT prophylaxis Lovenox and GI prophylaxis Daily clinical course: 06/04/2021 Patient is Covid positive Cardiology consult requested with chest pain 06/05/2021 Patient is on 5 L nasal cannula oxygen Chest pain is atypical Cardiology consult appreciated 06/06/21: Patient on 7 L nasal cannula today, ID consulted, initiated on remdesivir dexamethasone, continue to follow inflammatory markers 06/07/21: Patient on 10 L nasal cannula O2 today, continue remdesivir and dexamethasone, ID and pulmonary care following. Continue to follow inflammatory markers are elevated off O2 as tolerated. 06/08/21: Supplemental O2 weaned off to 3 L today. Continue to follow clinically. Continue remdesivir and dexamethasone 06/09/21: Patient is back on 10 to 7 L nasal cannula O2. Continue remdesivir and dexamethasone. Follow inflammatory markers, wean off O2 as tolerated. 06/10/21: Patient remains on 7 L nasal cannula O2, last dose of remdesivir today. Patient otherwise clinically stable. Continue to follow inflammatory markers. Due to history of coronary artery disease and morbid obesity patient is high risks for poor outcome. 06/11/21: Patient remains on 7 L nasal cannula O2 today, plan to wean off aggressively, patient clinically looks much more stable. Continue to follow inflammatory markers. 06/12/21: Continue to wean off O2, patient currently on 2 L nasal cannula. Will assess for home O2 requirement. If clinically stable possible discharge tomorrow. Subjective Date of service: 06/12/21 Principal diagnosis: Ac hypoxemic resp failure; COVID-19; Pneumonia; OHS; CAD; Hyponatremia Interval history: Patient seen and examined. Medical records and medication list reviewed. No acute event overnight noted by the RN. Patient complains of difficulty breathing and remains on nasal cannula O2. Patient is tolerating diet. Discussed plan of care at bedside with patient. Objective - Exam Narrative Exam: Limited physical exam due to COVID-19 pandemic to minimize transmission of the disease and to preserve PPE. Vital reviewed and stable. GENERAL: well-developed morbidly obese -[place] female lying on bed appeared to be in no discomfort. HEENT: Normocephalic. Atraumatic. NECK: Supple. CHEST/LUNGS: breathing nonlabored. HEART/CARDIOVASCULAR: Heart rate stable on telemetry ABDOMEN: Visibly not distended SKIN: There is no rash NEURO: No focal motor deficit. Follows command. MUSCULOSKELETAL: No joint effusion EXTRIMITY: No swelling, no cyanosis or clubbing. PSYCH: Cooperative. - Constitutional Vitals: Vital Signs - 12hr 06/11/21 06/11/21 06/12/21 21:39 22:30 00:07 Temperature 98.0 F Pulse Rate 87 Respiratory 20 20 Rate Blood Pressure 133/91 O2 Sat by Pulse 100 94 94 Oximetry 06/12/21 06/12/21 04:57 06:09 Temperature 97.8 F Pulse Rate 91 H 91 H Respiratory 20 Rate Blood Pressure 190/111 176/98 O2 Sat by Pulse 97 Oximetry - Labs CBC & Chem 7: 06/12/21 16:38 06/11/21 09:02 Labs: Abnormal lab results 06/11/21 06/11/21 06/11/21 Range/Units 09:02 15:33 15:33 D-Dimer 1419.30 H (0-234) ng/mlDDU Creatinine 0.5 L (0.6-1.2) mg/dL Ferritin 607.9 H (10.0-200.0) ng/mL Lactate Dehydrogenase (91-180) units/L C-Reactive Protein (0.00-1.30) mg/dL 06/11/21 Range/Units 15:33 D-Dimer (0-234) ng/mlDDU Creatinine (0.6-1.2) mg/dL Ferritin (10.0-200.0) ng/mL Lactate Dehydrogenase 446 H (91-180) units/L C-Reactive Protein 4.20 H (0.00-1.30) mg/dL HEART Score - HEART Score EKG: Non-specific Age: 45-65 Risk factors: > 3 risk factors or hx of atherosclerotic disease Troponin: Troponin T < 0.010 ng/mL (0.00-0.029) 06/03/21 16:47 Troponin: < normal limit - Critical Actions Critical Actions: 4-6 pts:12-16.6% risk of adverse cardiac event. Should be admi tted
[2021-06-12] MEDS: ASPIRIN EC 325 MG TAB PO SCH (10:45)
[2021-06-12] MEDS: ASCORBIC ACID 500 MG TAB PO SCH ×2 (10:45→21:57)
[2021-06-12] MEDS: ZINC SULFATE 220 MG CAP PO SCH ×2 (10:45→21:54)
[2021-06-12] MEDS: CLOPIDOGREL 75 MG TAB PO SCH (10:45)
[2021-06-12] MEDS: guaiFENesin ER 600 MG TAB PO SCH ×2 (10:45→21:56)
[2021-06-12] MEDS: METOPROLOL TARTRATE 50 MG TAB PO SCH ×2 (10:45→21:54)
[2021-06-12] MEDS: dexAMETHasone 4 MG/ML VIAL IV SCH (10:46)
[2021-06-12] MEDS: FAMOTIDINE 20 MG/2 ML INJ IV SCH ×2 (10:46→21:57)
[2021-06-12] MEDS: HEPARIN 5,000 UNIT/1 ML VIAL SUB-Q SCH ×2 (10:47→21:57)
[2021-06-12] MEDS: CHOLECALCIFEROL (VIT D3) 5,000 UNIT TAB PO SCH (10:49)
[2021-06-12] MEDS: clonazePAM 0.5 MG TAB PO SCH ×2 (15:02→21:54)
[2021-06-12 17:09] LABS: Basophils % (Auto) 0.2 % (0.0-1.8); Hematocrit 40.7 % (30.3-42.9); Hemoglobin 13.7 gm/dl (10.1-14.3); Lymphocytes # (Auto) 0.7 K/mm3 (1.2-5.4); Lymphocytes % (Auto) 7.8 % (13.4-35.0); Mean Corpuscular HGB Conc 34 % (30-34); Mean Corpuscular Volume 89 fl (79-97); Monocytes # (Auto) 0.4 K/mm3 (0.0-0.8); Monocytes % (Auto) 4.6 % (0.0-7.3); Platelet Count 451 K/mm3 (140-440); Red Blood Count 4.58 M/mm3 (3.65-5.03); Red Cell Distribution Width 14.8 % (13.2-15.2)
--- NOTE | 2021-06-12 19:44 | Progress Note ---
Assessment and Plan 50-year-old female with history of coronary artery disease, status post STEMI, drug-eluting stents in the RCA and, fibromyalgia asthma and obesity and hypoventilation syndrome comes in for chest pain since yesterday. Also associated nausea and vomiting. Chronic shortness of breath. No hematemesis. Patient is not vaccinated. Denies recent hospitalizations. Chest pain is intermittent in nature about 7 on a scale of 1-10. In the left precordial nonradiating. No diaphoresis. No shortness of breath. Past medical history: NSTEMI, status post thrombectomy, and recent varicella none stents x1 to the RCA, coronary artery disease, fibromyalgia, asthma, obesity hypoventilation syndrome, hypertension, diastolic CHF, hyperlipidemia, rhabdomyolysis. Patient has history of smoking Marijuana. Denies smoking cigaretts, alcohol or drug abuse. 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 Patient Tested positive for Covid. Patient Obese. patient awake. Resting on 2 litres O2. O2 saturation 97%. Patient has no complaint of chest pain, shortness of breath . Complaining non productive cough. Patient afebrile. No leukocytosis. Blood pressure 120/78, Pulse 96. Chest xray done 06/03/21 reported Patchy bilateral pneumonia which can be seen in atypical/viral pneumonia such as Covid. CT of chest done on 06/03/21 reported Bilateral pneumonia characteristic of atypical/viral pneumonia such as Covid. Patients inflammatory markers: Ferritin 607.9 D Dimer 1419.30 LDH 446 CRP 4.20 Pro calcitonin .05 Patient presently on Dexamethasone, Famotidine, S/C Heparin, Proair. I spent critical care time of 38 minutes in obtaining history, review the chart, examine the patient, review chest xray , CT of chest, lab results, talking to the nursing staff and respiratory therapy and work out plan of treatment in this critically ill Covid patient. - Patient Problems (1) Acute respiratory failure with hypoxia Current Visit: Yes Status: Acute Plan to address problem: O2 2 litres Continue Dexamethasone. Continue Pro air. Continue famotidine. Continue S/C Heparine. (2) Bilateral pneumonia Current Visit: Yes Status: Acute Plan to address problem: Antibiotics management as per Infectious diseases. (3) Acute coronary syndrome Current Visit: Yes Status: Acute Plan to address problem: Management as per cardiology. (4) CAD (coronary artery disease) Current Visit: Yes Status: Acute Plan to address problem: Management as per cardiology (5) HLD (hyperlipidemia) Current Visit: Yes Status: Acute Qualifiers: Qualified Code(s): E78.2 - Mixed hyperlipidemia Plan to address problem: Management as per primary care. (6) HTN (hypertension) Current Visit: Yes Status: Chronic Qualifiers: Hypertension type: primary hypertension Qualified Code(s): I10 - Essential (primary) hypertension Plan to address problem: Management as per primary care. (7) Obesity hypoventilation syndrome Current Visit: No Status: Acute Plan to address problem: Recommend ABGs on room air. Recommend to loose weight. Sleep study as out patient. Subjective Date of service: 06/12/21 Principal diagnosis: Ac hypoxemic resp failure; COVID-19; Pneumonia; OHS; CAD; Hyponatremia Interval history: 50-year-old female with history of coronary artery disease, status post STEMI, drug-eluting stents in the RCA and, fibromyalgia asthma and obesity and hypoventilation syndrome comes in for chest pain since yesterday. Also associated nausea and vomiting. Chronic shortness of breath. No hematemesis. Patient is not vaccinated. Denies recent hospitalizations. Chest pain is intermittent in nature about 7 on a scale of 1-10. In the left precordial nonradiating. No diaphoresis. No shortness of breath. Past medical history: NSTEMI, status post thrombectomy, and recent varicella none stents x1 to the RCA, coronary artery disease, fibromyalgia, asthma, obesity hypoventilation syndrome, hypertension, diastolic CHF, hyperlipidemia, rhabdomyolysis. Patient has history of smoking Marijuana. Denies smoking cigaretts, alcohol or drug abuse. 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 Patient Tested positive for Covid. Patient Obese. patient awake. Resting on 2 litres O2. O2 saturation 97%. Patient has no complaint of chest pain, shortness of breath . Complaining non productive cough. Patient afebrile. No leukocytosis. Blood pressure 120/78, Pulse 96. Chest xray done 06/03/21 reported Patchy bilateral pneumonia which can be seen in atypical/viral pneumonia such as Covid. CT of chest done on 06/03/21 reported Bilateral pneumonia characteristic of atypical/viral pneumonia such as Covid. Patients inflammatory markers: Ferritin 607.9 D Dimer 1419.30 LDH 446 CRP 4.20 Pro calcitonin .05 Patient presently on Dexamethasone, Famotidine, S/C Heparin, Proair. Objective Vital Signs - 12hr 06/12/21 06/12/21 06/12/21 12:00 12:36 12:37 Temperature 98.1 F Pulse Rate 89 88 Blood Pressure 112/82 O2 Sat by Pulse 93 94 97 Oximetry 06/12/21 06/12/21 17:01 17:02 Temperature Pulse Rate 99 H 97 H Blood Pressure O2 Sat by Pulse 97 97 Oximetry Constitutional: no acute distress, alert Eyes: non-icteric ENT: oropharynx moist Neck: supple, no lymphadenopathy, no JVD Effort: mildly labored Ascultation: Bilateral: rhonchi Percussion: Bilateral: not dull Cardiovascular: regular rate and rhythm Gastrointestinal: normoactive bowel sounds, soft, non-tender, non-distended Integumentary: normal Extremities: no cyanosis, no edema, pulses normal, no ischemia or petechiae Neurologic: non-focal exam, pupils equal and round, motor strength normal and Psychiatric: mood appropriate, affect normal CBC and BMP: 06/12/21 16:38 06/11/21 09:02 ABG, PT/INR, D-dimer: PT/INR, D-dimer PT 13.5 Sec. (12.2-14.9) 06/03/21 12:23 INR 0.97 (0.87-1.13) 06/03/21 12:23 D-Dimer 1419.30 ng/mlDDU (0-234) H 06/11/21 15:33 Abnormal lab findings: Abnormal Labs 06/03/21 06/03/21 06/03/21 12:23 12:23 12:23 WBC RBC 5.44 H Hgb 16.1 H Hct 47.4 H Plt Count Lymph % (Auto) 10.4 L Cooper % (Auto) 8.7 H Lymph # (Auto) 0.5 L Seg Neutrophils % 80.8 H D-Dimer Sodium 128 L Potassium 3.4 L Chloride 86.9 L BUN 24 H Creatinine Glucose 118 H POC Glucose Hemoglobin A1c Ferritin AST 75 H Lactate Dehydrogenase Total Creatine Kinase 681 H C-Reactive Protein NT-Pro-B Natriuret Pep Albumin 3.2 L Coronavirus (PCR) 06/03/21 06/03/21 06/03/21 12:23 13:31 13:41 WBC RBC Hgb Hct Plt Count Lymph % (Auto) Cooper % (Auto) Lymph # (Auto) Seg Neutrophils % D-Dimer 900.32 H Sodium Potassium Chloride BUN Creatinine Glucose POC Glucose Hemoglobin A1c Ferritin 2196.0 H AST Lactate Dehydrogenase Total Creatine Kinase C-Reactive Protein NT-Pro-B Natriuret Pep 467.5 H Albumin Coronavirus (PCR) 06/03/21 06/04/21 06/04/21 13:43 01:34 07:15 WBC 3.1 L RBC 5.59 H Hgb 16.6 H Hct 49.5 H Plt Count Lymph % (Auto) Cooper % (Auto) 10.7 H Lymph # (Auto) 0.4 L Seg Neutrophils % 74.2 H D-Dimer Sodium Potassium Chloride BUN Creatinine Glucose 114 H POC Glucose Hemoglobin A1c Ferritin AST Lactate Dehydrogenase 1082 H Total Creatine Kinase 577 H C-Reactive Protein 7.90 H NT-Pro-B Natriuret Pep Albumin Coronavirus (PCR) 06/04/21 06/04/21 06/04/21 07:15 07:15 07:15 WBC RBC Hgb Hct Plt Count Lymph % (Auto) Cooper % (Auto) Lymph # (Auto) Seg Neutrophils % D-Dimer Sodium 130 L Potassium Chloride 90.5 L BUN 30 H Creatinine Glucose 148 H POC Glucose Hemoglobin A1c 6.7 H Ferritin AST 60 H Lactate Dehydrogenase Total Creatine Kinase 495 H C-Reactive Protein NT-Pro-B Natriuret Pep Albumin 3.7 L Coronavirus (PCR) 06/04/21 06/04/21 06/07/21 08:52 14:54 05:16 WBC RBC Hgb Hct Plt Count Lymph % (Auto) Cooper % (Auto) Lymph # (Auto) Seg Neutrophils % D-Dimer Sodium 133 L Potassium Chloride 94.8 L BUN Creatinine Glucose 133 H POC Glucose Hemoglobin A1c Ferritin AST Lactate Dehydrogenase Total Creatine Kinase 358 H C-Reactive Protein NT-Pro-B Natriuret Pep Albumin 3.0 L Coronavirus (PCR) Positive A 06/07/21 06/08/21 06/09/21 07:59 05:47 06:45 WBC RBC Hgb Hct Plt Count Lymph % (Auto) Cooper % (Auto) Lymph # (Auto) Seg Neutrophils % D-Dimer Sodium 136 L Potassium 3.5 L Chloride BUN Creatinine Glucose 117 H POC Glucose 132 H Hemoglobin A1c Ferritin AST 41 H Lactate Dehydrogenase Total Creatine Kinase C-Reactive Protein NT-Pro-B Natriuret Pep Albumin 2.7 L 2.9 L Coronavirus (PCR) 06/11/21 06/11/21 06/11/21 09:02 15:33 15:33 WBC RBC Hgb Hct Plt Count Lymph % (Auto) Cooper % (Auto) Lymph # (Auto) Seg Neutrophils % D-Dimer 1419.30 H Sodium Potassium Chloride BUN Creatinine 0.5 L Glucose POC Glucose Hemoglobin A1c Ferritin 607.9 H AST Lactate Dehydrogenase Total Creatine Kinase C-Reactive Protein NT-Pro-B Natriuret Pep Albumin Coronavirus (PCR) 06/11/21 06/12/21 15:33 16:38 WBC RBC Hgb Hct Plt Count 451 H Lymph % (Auto) 7.8 L Cooper % (Auto) Lymph # (Auto) 0.7 L Seg Neutrophils % 87.4 H D-Dimer Sodium Potassium Chloride BUN Creatinine Glucose POC Glucose Hemoglobin A1c Ferritin AST Lactate Dehydrogenase 446 H Total Creatine Kinase C-Reactive Protein 4.20 H NT-Pro-B Natriuret Pep Albumin Coronavirus (PCR) Chest x-ray: report reviewed, image reviewed CT scan - chest: report reviewed, image reviewed Additional Studies: CT CHEST WITHOUT CONTRAST 06/03/21 INDICATION / CLINICAL INFORMATION: Chest pain with dyspnea. CHF versus pneumonia versus Covid 19. TECHNIQUE: Axial CT images were obtained through the chest without contrast. All CT scans at this location are performed using CT dose reduction for ALARA by means of automated exposure control. COMPARISON: Radiograph dated 06/03/21 FINDINGS: HEART: No significant abnormality. CORONARY ARTERY CALCIFICATION: Moderate. Right coronary artery stent. THORACIC AORTA: No significant abnormality. MEDIASTINUM / CHARISSA: No significant abnormality. PLEURA: No pleural effusion. No pneumothorax. LUNGS: Moderately extensive bilateral airspace disease with groundglass densities. ADDITIONAL FINDINGS: None. UPPER ABDOMEN: No significant abnormality. SKELETAL SYSTEM: No significant abnormality. IMPRESSION: 1. Bilateral pneumonia characteristic of atypical/viral pneumonia such as Covid. CHEST 1 VIEW 06/03/2021 12:25 PM INDICATION / CLINICAL INFORMATION: Chest Pain. COMPARISON: 01/10/21 FINDINGS: SUPPORT DEVICES: None. HEART / MEDIASTINUM: No significant abnormality. LUNGS / PLEURA: Multifocal patchy airspace disease in both lungs. No pneumothorax. ADDITIONAL FINDINGS: No significant additional findings. IMPRESSION: 1. Patchy bilateral pneumonia which can be seen in atypical/viral pneumonia such as Covid. Allied health notes reviewed: nursing
--- NOTE | 2021-06-13 10:34 | Progress Note ---
Assessment and Plan Atypical chest pain, associated with coughing secondary to pneumonia COVID 19 Pneumonia negative VQ scan Old inferior ST elevation RI s/p PCI 01/2021; on plavix and aspirin LVEF 45-50% by echo 01/2021 Hypertension Hyperlipidemia Obesity Continue medical therapy for coronary artery disease. Otherwise, conservative cardiac management. Subjective Date of service: 06/13/21 Principal diagnosis: Ac hypoxemic resp failure; COVID-19; Pneumonia; OHS; CAD; Hyponatremia Interval history: No cardiac events reported. No distress noted. Objective Vital Signs Temp Pulse Resp BP Pulse Ox 06/13/21 08:00 96 06/13/21 06:06 98.2 F 86 20 140/104 100 06/12/21 23:00 98.1 F 94 H 20 127/95 93 06/12/21 22:00 93 06/12/21 21:54 97 H 06/12/21 21:40 98 06/12/21 17:02 97 H 97 06/12/21 17:01 98.4 F 96 H 20 120/78 97 06/12/21 16:20 93 06/12/21 12:37 84 97 06/12/21 12:36 98.1 F 89 112/82 94 06/12/21 12:00 93 - Physical Examination Narrative exam: Deferred due to isolation protocol. General: No Apparent Distress Cardiac: Positive: Reg Rate and Rhythm - Labs and Meds CBC 06/12/21 Range/Units 16:38 WBC 8.8 (4.5-11.0) K/mm3 RBC 4.58 (3.65-5.03) M/mm3 Hgb 13.7 (10.1-14.3) gm/dl Hct 40.7 (30.3-42.9) % Plt Count 451 H (140-440) K/mm3 Lymph # (Auto) 0.7 L (1.2-5.4) K/mm3 [place] # (Auto) 0.4 (0.0-0.8) K/mm3 Eos # (Auto) 0.0 (0.0-0.4) K/mm3 Baso # (Auto) 0.0 (0.0-0.1) K/mm3 - Allied health notes Allied health notes reviewed: nursing
[2021-06-13] MEDS: CHOLECALCIFEROL (VIT D3) 5,000 UNIT TAB PO SCH (12:31)
[2021-06-13] MEDS: CLOPIDOGREL 75 MG TAB PO SCH (12:32)
[2021-06-13] MEDS: clonazePAM 0.5 MG TAB PO SCH ×2 (12:32→21:59)
[2021-06-13] MEDS: guaiFENesin ER 600 MG TAB PO SCH ×2 (12:32→22:00)
[2021-06-13] MEDS: ASPIRIN EC 325 MG TAB PO SCH (12:32)
[2021-06-13] MEDS: ZINC SULFATE 220 MG CAP PO SCH ×2 (12:32→21:59)
[2021-06-13] MEDS: dexAMETHasone 4 MG/ML VIAL IV SCH (12:33)
[2021-06-13] MEDS: ASCORBIC ACID 500 MG TAB PO SCH ×2 (12:33→22:00)
[2021-06-13] MEDS: METOPROLOL TARTRATE 50 MG TAB PO SCH ×2 (12:33→22:00)
[2021-06-13] MEDS: HEPARIN 5,000 UNIT/1 ML VIAL SUB-Q SCH ×2 (12:34→22:00)
[2021-06-13] MEDS: FAMOTIDINE 20 MG/2 ML INJ IV SCH ×2 (12:36→22:00)
--- NOTE | 2021-06-13 17:23 | Discharge Summary ---
Providers - Providers Date of Admission: 06/03/21 15:54 Date of discharge: 06/14/21 Attending physician: KAREN BAXTER 06/06/21 11:00 Consult to Physician [CONS] Routine Comment: Consulting Provider: ZANDER DÍAZ Physician Instructions: Reason For Exam: covid +ve 06/07/21 15:46 Consult to Physician [CONS] Routine Comment: Consulting Provider: CHANDRIKA AYALA Physician Instructions: Reason For Exam: Acute hypoxic respiratory failure 06/13/21 12:03 Physical Therapy Evaluation and Treat [CONS] Stat Comment: Reason For Exam: eval and treat Primary care physician: REBECCA HOOVER Hospitalization Condition: Serious Hospital course: 50-year-old female past medical history obesity, coronary artery disease with history of STEMI, myalgia, presented to hospital complaining of chest pain associated with nausea and vomiting. She has not vaccinated against Covid. Afebrile since admission with a white count of 3.1. Tested positive for Covid. Patient has normal renal function and normal procalcitonin. Currently on supplemental oxygen with nasal cannula. Chest CT: Bilateral pneumonia Daily clinical course: 06/04/2021 Patient is Covid positive, initiated on Covid protocol, follow inflammatory markers Cardiology consult requested with chest pain 06/05/2021 Patient is on 5 L nasal cannula oxygen Chest pain is atypical Cardiology consult appreciated 06/06/21: Patient on 7 L nasal cannula today, ID consulted, initiated on remdesivir dexamethasone, continue to follow inflammatory markers 06/07/21: Patient on 10 L nasal cannula O2 today, continue remdesivir and dexamethasone, ID and pulmonary care following. Continue to follow inflammatory markers are elevated off O2 as tolerated. 06/08/21: Supplemental O2 weaned off to 3 L today. Continue to follow clinically. Continue remdesivir and dexamethasone 06/09/21: Patient is back on 10 to 7 L nasal cannula O2. Continue remdesivir and dexamethasone. Follow inflammatory markers, wean off O2 as tolerated. 06/10/21: Patient remains on 7 L nasal cannula O2, last dose of remdesivir today. Patient otherwise clinically stable. Continue to follow inflammatory markers. Due to history of coronary artery disease and morbid obesity patient is high risks for poor outcome. 06/11/21: Patient remains on 7 L nasal cannula O2 today, plan to wean off aggressively, patient clinically looks much more stable. Continue to follow inflammatory markers. 06/12/21: Continue to wean off O2, patient currently on 2 L nasal cannula. Will assess for home O2 requirement. If clinically stable possible discharge tomorrow. 06/13/21: Resting on 2 L nasal cannula O2. Inflammatory markers are stable. Completed remdesivir. Plan to discharge home with home O2. Discharge planning management was thoroughly discussed with the patient and she verbalized understanding. Disposition: 30 STILL A PATIENT Final Discharge Diagnosis (Prints w/discharge instructions): -- Acute respiratory failure with hypoxia. -- Bilateral pneumonia with COVID-19. -- Acute chest pain, likely due to underlying pneumonia. --Hyponatremia, POA, resolved. --Hypokalemia, repleted. -- HLD (hyperlipidemia). -- HTN (hypertension). -- CAD (coronary artery disease). --Morbid obesity Time spent for discharge: 34 minutes Core Measure Documentation - Palliative Care Palliative Care/ Comfort Measures: Not Applicable - Core Measures Any of the following diagnoses?: none Exam - Physical Exam Narrative exam: Limited physical exam due to COVID-19 pandemic to minimize transmission of the disease and to preserve PPE. Vital reviewed and stable. GENERAL: well-developed morbidly obese -[place] female lying on bed appeared to be in no discomfort. HEENT: Normocephalic. Atraumatic. NECK: Supple. CHEST/LUNGS: breathing nonlabored. HEART/CARDIOVASCULAR: Heart rate stable on telemetry ABDOMEN: Visibly not distended SKIN: There is no rash NEURO: No focal motor deficit. Follows command. MUSCULOSKELETAL: No joint effusion EXTRIMITY: No swelling, no cyanosis or clubbing. PSYCH: Cooperative. - Constitutional Vitals: Temp Pulse Resp BP Pulse Ox 98.2 F 95 H 20 140/104 97 06/13/21 06:06 06/13/21 11:50 06/13/21 06:06 06/13/21 06:06 06/13/21 11:50 Plan Activity: advance as tolerated Weight Bearing Status: Weight Bear as Tolerated Diet: low fat, low salt Special Instructions: home oxygen via (2L n/c o2) Follow up with: МАРИЯ HOOVER MD [Primary Care Provider] - 3-5 Days Prescriptions: Dexamethasone [Decadron] 6 mg PO DAILY #2 tablet guaiFENesin ER [Mucinex ER] 600 mg PO BID #14 tablet Albuterol Mdi (or & Nicu Only) [ProAir HFA Inhaler] 2 puff IH Q4H PRN #1 inha PRN Reason: Shortness Of Breath Ascorbic Acid [Vitamin C] 1,000 mg PO BID #14 tablet Cholecalciferol (Vitamin D3) [Vitamin D3] 5,000 unit PO DAILY #7 tablet Zinc Sulfate 220 mg PO BID #14 capsule
--- NOTE | 2021-06-13 21:12 | Progress Note ---
Assessment and Plan 50-year-old female with history of coronary artery disease, status post STEMI, drug-eluting stents in the RCA and, fibromyalgia asthma and obesity and hypoventilation syndrome comes in for chest pain since yesterday. Also associated nausea and vomiting. Chronic shortness of breath. No hematemesis. Patient is not vaccinated. Denies recent hospitalizations. Chest pain is intermittent in nature about 7 on a scale of 1-10. In the left precordial nonradiating. No diaphoresis. No shortness of breath. Past medical history: NSTEMI, status post thrombectomy, and recent varicella none stents x1 to the RCA, coronary artery disease, fibromyalgia, asthma, obesity hypoventilation syndrome, hypertension, diastolic CHF, hyperlipidemia, rhabdomyolysis. Patient has history of smoking Marijuana. Denies smoking cigaretts, alcohol or drug abuse. 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 Patient Tested positive for Covid. Patient Obese. patient awake. Resting on 2 litres O2. O2 saturation 96%. Patient has no complaint of chest pain, Complaining slight shortness of breath and slight cough. cough. Patient afebrile. No leukocytosis. Blood pressure 124/86, Pulse 99. Chest xray done 06/03/21 reported Patchy bilateral pneumonia which can be seen in atypical/viral pneumonia such as Covid. CT of chest done on 06/03/21 reported Bilateral pneumonia characteristic of atypical/viral pneumonia such as Covid. Patients inflammatory markers: Ferritin 607.9 D Dimer 1419.30 LDH 446 CRP 4.20 Pro calcitonin .05 Patient presently on Dexamethasone, Famotidine, S/C Heparin, Proair. I spent critical care time of 35 minutes in obtaining history, review the chart, examine the patient, review chest xray , CT of chest, lab results, talking to the nursing staff and respiratory therapy and work out plan of treatment in this critically ill Covid patient. - Patient Problems (1) Acute respiratory failure with hypoxia Current Visit: Yes Status: Acute Plan to address problem: O2 2 litres Continue Dexamethasone. Continue Pro air. Continue famotidine. Continue S/C Heparine. (2) Bilateral pneumonia Current Visit: Yes Status: Acute Plan to address problem: Antibiotics management as per Infectious diseases. (3) Acute coronary syndrome Current Visit: Yes Status: Acute Plan to address problem: Management as per cardiology. (4) CAD (coronary artery disease) Current Visit: Yes Status: Acute Plan to address problem: Management as per cardiology (5) HLD (hyperlipidemia) Current Visit: Yes Status: Acute Qualifiers: Qualified Code(s): E78.2 - Mixed hyperlipidemia Plan to address problem: Management as per primary care. (6) HTN (hypertension) Current Visit: Yes Status: Chronic Qualifiers: Hypertension type: primary hypertension Qualified Code(s): I10 - Essential (primary) hypertension Plan to address problem: Management as per primary care. (7) Obesity hypoventilation syndrome Current Visit: No Status: Acute Plan to address problem: Recommend ABGs on room air. Recommend to loose weight. Sleep study as out patient. Subjective Date of service: 06/13/21 Principal diagnosis: Ac hypoxemic resp failure; COVID-19; Pneumonia; OHS; CAD; Hyponatremia Interval history: 50-year-old female with history of coronary artery disease, status post STEMI, drug-eluting stents in the RCA and, fibromyalgia asthma and obesity and hypoventilation syndrome comes in for chest pain since yesterday. Also associated nausea and vomiting. Chronic shortness of breath. No hematemesis. Patient is not vaccinated. Denies recent hospitalizations. Chest pain is intermittent in nature about 7 on a scale of 1-10. In the left precordial nonradiating. No diaphoresis. No shortness of breath. Past medical history: NSTEMI, status post thrombectomy, and recent varicella none stents x1 to the RCA, coronary artery disease, fibromyalgia, asthma, obesity hypoventilation syndrome, hypertension, diastolic CHF, hyperlipidemia, rhabdomyolysis. Patient has history of smoking Marijuana. Denies smoking cigaretts, alcohol or drug abuse. 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 Patient Tested positive for Covid. Patient Obese. patient awake. Resting on 2 litres O2. O2 saturation 96%. Patient has no complaint of chest pain, Complaining slight shortness of breath and slight cough. cough. Patient afebrile. No leukocytosis. Blood pressure 124/86, Pulse 99. Chest xray done 06/03/21 reported Patchy bilateral pneumonia which can be seen in atypical/viral pneumonia such as Covid. CT of chest done on 06/03/21 reported Bilateral pneumonia characteristic of atypical/viral pneumonia such as Covid. Patients inflammatory markers: Ferritin 607.9 D Dimer 1419.30 LDH 446 CRP 4.20 Pro calcitonin .05 Patient presently on Dexamethasone, Famotidine, S/C Heparin, Proair. Objective Vital Signs - 12hr 06/13/21 06/13/21 06/13/21 11:50 16:37 16:38 Pulse Rate 95 H 94 H 92 H O2 Sat by Pulse 97 98 98 Oximetry 06/13/21 16:39 Pulse Rate 99 H O2 Sat by Pulse 96 Oximetry Constitutional: no acute distress, alert Eyes: non-icteric ENT: oropharynx moist Neck: supple, no lymphadenopathy, no JVD Effort: mildly labored Ascultation: Bilateral: rhonchi Percussion: Bilateral: not dull Cardiovascular: regular rate and rhythm Gastrointestinal: normoactive bowel sounds, soft, non-tender, non-distended Integumentary: normal Extremities: no cyanosis, no edema, pulses normal, no ischemia or petechiae Neurologic: non-focal exam, pupils equal and round, motor strength normal and Psychiatric: mood appropriate, affect normal CBC and BMP: 06/12/21 16:38 06/11/21 09:02 ABG, PT/INR, D-dimer: PT/INR, D-dimer PT 13.5 Sec. (12.2-14.9) 06/03/21 12:23 INR 0.97 (0.87-1.13) 06/03/21 12:23 D-Dimer 1419.30 ng/mlDDU (0-234) H 06/11/21 15:33 Abnormal lab findings: Abnormal Labs 06/03/21 06/03/21 06/03/21 12:23 12:23 12:23 WBC RBC 5.44 H Hgb 16.1 H Hct 47.4 H Plt Count Lymph % (Auto) 10.4 L [place] % (Auto) 8.7 H Lymph # (Auto) 0.5 L Seg Neutrophils % 80.8 H D-Dimer Sodium 128 L Potassium 3.4 L Chloride 86.9 L BUN 24 H Creatinine Glucose 118 H POC Glucose Hemoglobin A1c Ferritin AST 75 H Lactate Dehydrogenase Total Creatine Kinase 681 H C-Reactive Protein NT-Pro-B Natriuret Pep Albumin 3.2 L Coronavirus (PCR) 06/03/21 06/03/21 06/03/21 12:23 13:31 13:41 WBC RBC Hgb Hct Plt Count Lymph % (Auto) [place] % (Auto) Lymph # (Auto) Seg Neutrophils % D-Dimer 900.32 H Sodium Potassium Chloride BUN Creatinine Glucose POC Glucose Hemoglobin A1c Ferritin 2196.0 H AST Lactate Dehydrogenase Total Creatine Kinase C-Reactive Protein NT-Pro-B Natriuret Pep 467.5 H Albumin Coronavirus (PCR) 06/03/21 06/04/21 06/04/21 13:43 01:34 07:15 WBC 3.1 L RBC 5.59 H Hgb 16.6 H Hct 49.5 H Plt Count Lymph % (Auto) [place] % (Auto) 10.7 H Lymph # (Auto) 0.4 L Seg Neutrophils % 74.2 H D-Dimer Sodium Potassium Chloride BUN Creatinine Glucose 114 H POC Glucose Hemoglobin A1c Ferritin AST Lactate Dehydrogenase 1082 H Total Creatine Kinase 577 H C-Reactive Protein 7.90 H NT-Pro-B Natriuret Pep Albumin Coronavirus (PCR) 06/04/21 06/04/21 06/04/21 07:15 07:15 07:15 WBC RBC Hgb Hct Plt Count Lymph % (Auto) [place] % (Auto) Lymph # (Auto) Seg Neutrophils % D-Dimer Sodium 130 L Potassium Chloride 90.5 L BUN 30 H Creatinine Glucose 148 H POC Glucose Hemoglobin A1c 6.7 H Ferritin AST 60 H Lactate Dehydrogenase Total Creatine Kinase 495 H C-Reactive Protein NT-Pro-B Natriuret Pep Albumin 3.7 L Coronavirus (PCR) 06/04/21 06/04/21 06/07/21 08:52 14:54 05:16 WBC RBC Hgb Hct Plt Count Lymph % (Auto) [place] % (Auto) Lymph # (Auto) Seg Neutrophils % D-Dimer Sodium 133 L Potassium Chloride 94.8 L BUN Creatinine Glucose 133 H POC Glucose Hemoglobin A1c Ferritin AST Lactate Dehydrogenase Total Creatine Kinase 358 H C-Reactive Protein NT-Pro-B Natriuret Pep Albumin 3.0 L Coronavirus (PCR) Positive A 06/07/21 06/08/21 06/09/21 07:59 05:47 06:45 WBC RBC Hgb Hct Plt Count Lymph % (Auto) [place] % (Auto) Lymph # (Auto) Seg Neutrophils % D-Dimer Sodium 136 L Potassium 3.5 L Chloride BUN Creatinine Glucose 117 H POC Glucose 132 H Hemoglobin A1c Ferritin AST 41 H Lactate Dehydrogenase Total Creatine Kinase C-Reactive Protein NT-Pro-B Natriuret Pep Albumin 2.7 L 2.9 L Coronavirus (PCR) 06/11/21 06/11/21 06/11/21 09:02 15:33 15:33 WBC RBC Hgb Hct Plt Count Lymph % (Auto) [place] % (Auto) Lymph # (Auto) Seg Neutrophils % D-Dimer 1419.30 H Sodium Potassium Chloride BUN Creatinine 0.5 L Glucose POC Glucose Hemoglobin A1c Ferritin 607.9 H AST Lactate Dehydrogenase Total Creatine Kinase C-Reactive Protein NT-Pro-B Natriuret Pep Albumin Coronavirus (PCR) 06/11/21 06/12/21 15:33 16:38 WBC RBC Hgb Hct Plt Count 451 H Lymph % (Auto) 7.8 L [place] % (Auto) Lymph # (Auto) 0.7 L Seg Neutrophils % 87.4 H D-Dimer Sodium Potassium Chloride BUN Creatinine Glucose POC Glucose Hemoglobin A1c Ferritin AST Lactate Dehydrogenase 446 H Total Creatine Kinase C-Reactive Protein 4.20 H NT-Pro-B Natriuret Pep Albumin Coronavirus (PCR) Allied health notes reviewed: nursing
--- NOTE | 2021-06-14 08:37 | Progress Note ---
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 Otherwise, conservative cardiac management. Subjective Date of service: 06/14/21 Principal diagnosis: Ac hypoxemic resp failure; COVID-19; Pneumonia; OHS; CAD; Hyponatremia Interval history: No cardiac events reported. Objective Vital Signs Temp Pulse Resp BP Pulse Ox 06/14/21 04:25 98.2 F 64 18 146/103 96 06/13/21 22:52 100 06/13/21 22:00 95 06/13/21 21:36 98.2 F 99 H 18 124/86 99 06/13/21 16:39 99 H 96 06/13/21 16:38 92 H 98 06/13/21 16:37 94 H 98 06/13/21 11:50 95 H 97 06/13/21 10:00 95 - Physical Examination Narrative exam: Deferred due to isolation protocol. General: No Apparent Distress Cardiac: Positive: Reg Rate and Rhythm - Allied health notes Allied health notes reviewed: nursing
[2021-06-14] MEDS: FAMOTIDINE 20 MG/2 ML INJ IV SCH (09:53)
[2021-06-14] MEDS: dexAMETHasone 4 MG/ML VIAL IV SCH (09:53)
[2021-06-14] MEDS: HEPARIN 5,000 UNIT/1 ML VIAL SUB-Q SCH (09:53)
[2021-06-14] MEDS: ASCORBIC ACID 500 MG TAB PO SCH (09:54)
[2021-06-14] MEDS: CLOPIDOGREL 75 MG TAB PO SCH (09:54)
[2021-06-14] MEDS: ASPIRIN EC 325 MG TAB PO SCH (09:54)
[2021-06-14] MEDS: ZINC SULFATE 220 MG CAP PO SCH (09:54)
[2021-06-14] MEDS: CHOLECALCIFEROL (VIT D3) 5,000 UNIT TAB PO SCH (09:54)
[2021-06-14] MEDS: guaiFENesin ER 600 MG TAB PO SCH (09:54)
[2021-06-14] MEDS: METOPROLOL TARTRATE 50 MG TAB PO SCH (09:54)
[2021-06-14] MEDS: clonazePAM 0.5 MG TAB PO SCH (09:55)
--- NOTE | 2021-06-14 13:38 | Progress Note ---
Assessment and Plan 50-year-old female with history of coronary artery disease, status post STEMI, drug-eluting stents in the RCA and, fibromyalgia asthma and obesity and hypoventilation syndrome comes in for chest pain since yesterday. Also associated nausea and vomiting. Chronic shortness of breath. No hematemesis. Patient is not vaccinated. Denies recent hospitalizations. Chest pain is intermittent in nature about 7 on a scale of 1-10. In the left precordial nonradiating. No diaphoresis. No shortness of breath. Past medical history: NSTEMI, status post thrombectomy, and recent varicella none stents x1 to the RCA, coronary artery disease, fibromyalgia, asthma, obesity hypoventilation syndrome, hypertension, diastolic CHF, hyperlipidemia, rhabdomyolysis. Patient has history of smoking Marijuana. Denies smoking cigaretts, alcohol or drug abuse. 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 Patient Tested positive for Covid. Patient Obese. patient awake. Resting on 2 litres O2. O2 saturation 96%. Patient has no complaint of chest pain, Complaining slight shortness of breath and slight cough. cough. Patient afebrile. No leukocytosis. Blood pressure 124/86, Pulse 99. Chest xray done 06/03/21 reported Patchy bilateral pneumonia which can be seen in atypical/viral pneumonia such as Covid. CT of chest done on 06/03/21 reported Bilateral pneumonia characteristic of atypical/viral pneumonia such as Covid. Patients inflammatory markers: Ferritin 607.9 D Dimer 1419.30 LDH 446 CRP 4.20 Pro calcitonin .05 Patient presently on Dexamethasone, Famotidine, S/C Heparin, Proair. I spent critical care time of 35 minutes in obtaining history, review the chart, examine the patient, review chest xray , CT of chest, lab results, talking to the nursing staff and respiratory therapy and work out plan of treatment in this critically ill Covid patient. - Patient Problems (1) Acute respiratory failure with hypoxia Current Visit: Yes Status: Acute Plan to address problem: O2 2 litres Continue Dexamethasone. Continue Pro air. Continue famotidine. Continue S/C Heparine. (2) Bilateral pneumonia Current Visit: Yes Status: Acute Plan to address problem: Antibiotics management as per Infectious diseases. (3) Acute coronary syndrome Current Visit: Yes Status: Acute Plan to address problem: Management as per cardiology. (4) CAD (coronary artery disease) Current Visit: Yes Status: Acute Plan to address problem: Management as per cardiology (5) HLD (hyperlipidemia) Current Visit: Yes Status: Acute Qualifiers: Qualified Code(s): E78.2 - Mixed hyperlipidemia Plan to address problem: Management as per primary care. (6) HTN (hypertension) Current Visit: Yes Status: Chronic Qualifiers: Hypertension type: primary hypertension Qualified Code(s): I10 - Essential (primary) hypertension Plan to address problem: Management as per primary care. (7) Obesity hypoventilation syndrome Current Visit: No Status: Acute Plan to address problem: Recommend ABGs on room air. Recommend to loose weight. Sleep study as out patient. Subjective Date of service: 06/14/21 Principal diagnosis: Ac hypoxemic resp failure; COVID-19; Pneumonia; OHS; CAD; Hyponatremia Interval history: 50-year-old female with history of coronary artery disease, status post STEMI, drug-eluting stents in the RCA and, fibromyalgia asthma and obesity and hypoventilation syndrome comes in for chest pain since yesterday. Also associated nausea and vomiting. Chronic shortness of breath. No hematemesis. Patient is not vaccinated. Denies recent hospitalizations. Chest pain is intermittent in nature about 7 on a scale of 1-10. In the left precordial nonradiating. No diaphoresis. No shortness of breath. Past medical history: NSTEMI, status post thrombectomy, and recent varicella none stents x1 to the RCA, coronary artery disease, fibromyalgia, asthma, obesity hypoventilation syndrome, hypertension, diastolic CHF, hyperlipidemia, rhabdomyolysis. Patient has history of smoking Marijuana. Denies smoking cigaretts, alcohol or drug abuse. 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 Patient Tested positive for Covid. Patient Obese. patient awake. Resting on 2 litres O2. O2 saturation 96%. Patient has no complaint of chest pain, Complaining slight shortness of breath and slight cough. cough. Patient afebrile. No leukocytosis. Blood pressure 124/86, Pulse 99. Chest xray done 06/03/21 reported Patchy bilateral pneumonia which can be seen in atypical/viral pneumonia such as Covid. CT of chest done on 06/03/21 reported Bilateral pneumonia characteristic of atypical/viral pneumonia such as Covid. Patients inflammatory markers: Ferritin 607.9 D Dimer 1419.30 LDH 446 CRP 4.20 Pro calcitonin .05 Patient presently on Dexamethasone, Famotidine, S/C Heparin, Proair. Objective Vital Signs - 12hr 06/14/21 06/14/21 06/14/21 04:25 08:52 09:54 Temperature 98.2 F Pulse Rate 64 64 Respiratory 18 Rate Blood Pressure 146/103 146/103 O2 Sat by Pulse 96 96 Oximetry 06/14/21 09:55 Temperature Pulse Rate 64 Respiratory Rate Blood Pressure 146/103 O2 Sat by Pulse Oximetry Constitutional: no acute distress, alert Eyes: non-icteric ENT: oropharynx moist Neck: supple, no lymphadenopathy, no JVD Effort: mildly labored Ascultation: Bilateral: rhonchi Percussion: Bilateral: not dull Cardiovascular: regular rate and rhythm Gastrointestinal: normoactive bowel sounds, soft, non-tender, non-distended Integumentary: normal Extremities: no cyanosis, no edema, pulses normal, no ischemia or petechiae Neurologic: non-focal exam, pupils equal and round, motor strength normal and Psychiatric: mood appropriate, affect normal CBC and BMP: 06/12/21 16:38 06/11/21 09:02 ABG, PT/INR, D-dimer: PT/INR, D-dimer PT 13.5 Sec. (12.2-14.9) 06/03/21 12:23 INR 0.97 (0.87-1.13) 06/03/21 12:23 D-Dimer 1419.30 ng/mlDDU (0-234) H 06/11/21 15:33 Abnormal lab findings: Abnormal Labs 06/03/21 06/03/21 06/03/21 12:23 12:23 12:23 WBC RBC 5.44 H Hgb 16.1 H Hct 47.4 H Plt Count Lymph % (Auto) 10.4 L [place] % (Auto) 8.7 H Lymph # (Auto) 0.5 L Seg Neutrophils % 80.8 H D-Dimer Sodium 128 L Potassium 3.4 L Chloride 86.9 L BUN 24 H Creatinine Glucose 118 H POC Glucose Hemoglobin A1c Ferritin AST 75 H Lactate Dehydrogenase Total Creatine Kinase 681 H C-Reactive Protein NT-Pro-B Natriuret Pep Albumin 3.2 L Coronavirus (PCR) 06/03/21 06/03/21 06/03/21 12:23 13:31 13:41 WBC RBC Hgb Hct Plt Count Lymph % (Auto) [place] % (Auto) Lymph # (Auto) Seg Neutrophils % D-Dimer 900.32 H Sodium Potassium Chloride BUN Creatinine Glucose POC Glucose Hemoglobin A1c Ferritin 2196.0 H AST Lactate Dehydrogenase Total Creatine Kinase C-Reactive Protein NT-Pro-B Natriuret Pep 467.5 H Albumin Coronavirus (PCR) 06/03/21 06/04/21 06/04/21 13:43 01:34 07:15 WBC 3.1 L RBC 5.59 H Hgb 16.6 H Hct 49.5 H Plt Count Lymph % (Auto) [place] % (Auto) 10.7 H Lymph # (Auto) 0.4 L Seg Neutrophils % 74.2 H D-Dimer Sodium Potassium Chloride BUN Creatinine Glucose 114 H POC Glucose Hemoglobin A1c Ferritin AST Lactate Dehydrogenase 1082 H Total Creatine Kinase 577 H C-Reactive Protein 7.90 H NT-Pro-B Natriuret Pep Albumin Coronavirus (PCR) 06/04/21 06/04/21 06/04/21 07:15 07:15 07:15 WBC RBC Hgb Hct Plt Count Lymph % (Auto) [place] % (Auto) Lymph # (Auto) Seg Neutrophils % D-Dimer Sodium 130 L Potassium Chloride 90.5 L BUN 30 H Creatinine Glucose 148 H POC Glucose Hemoglobin A1c 6.7 H Ferritin AST 60 H Lactate Dehydrogenase Total Creatine Kinase 495 H C-Reactive Protein NT-Pro-B Natriuret Pep Albumin 3.7 L Coronavirus (PCR) 06/04/21 06/04/21 06/07/21 08:52 14:54 05:16 WBC RBC Hgb Hct Plt Count Lymph % (Auto) [place] % (Auto) Lymph # (Auto) Seg Neutrophils % D-Dimer Sodium 133 L Potassium Chloride 94.8 L BUN Creatinine Glucose 133 H POC Glucose Hemoglobin A1c Ferritin AST Lactate Dehydrogenase Total Creatine Kinase 358 H C-Reactive Protein NT-Pro-B Natriuret Pep Albumin 3.0 L Coronavirus (PCR) Positive A 06/07/21 06/08/21 06/09/21 07:59 05:47 06:45 WBC RBC Hgb Hct Plt Count Lymph % (Auto) [place] % (Auto) Lymph # (Auto) Seg Neutrophils % D-Dimer Sodium 136 L Potassium 3.5 L Chloride BUN Creatinine Glucose 117 H POC Glucose 132 H Hemoglobin A1c Ferritin AST 41 H Lactate Dehydrogenase Total Creatine Kinase C-Reactive Protein NT-Pro-B Natriuret Pep Albumin 2.7 L 2.9 L Coronavirus (PCR) 06/11/21 06/11/21 06/11/21 09:02 15:33 15:33 WBC RBC Hgb Hct Plt Count Lymph % (Auto) [place] % (Auto) Lymph # (Auto) Seg Neutrophils % D-Dimer 1419.30 H Sodium Potassium Chloride BUN Creatinine 0.5 L Glucose POC Glucose Hemoglobin A1c Ferritin 607.9 H AST Lactate Dehydrogenase Total Creatine Kinase C-Reactive Protein NT-Pro-B Natriuret Pep Albumin Coronavirus (PCR) 06/11/21 06/12/21 15:33 16:38 WBC RBC Hgb Hct Plt Count 451 H Lymph % (Auto) 7.8 L [place] % (Auto) Lymph # (Auto) 0.7 L Seg Neutrophils % 87.4 H D-Dimer Sodium Potassium Chloride BUN Creatinine Glucose POC Glucose Hemoglobin A1c Ferritin AST Lactate Dehydrogenase 446 H Total Creatine Kinase C-Reactive Protein 4.20 H NT-Pro-B Natriuret Pep Albumin Coronavirus (PCR) Allied health notes reviewed: nursing
--- NOTE | 2021-06-14 16:34 | Progress Note ---
Assessment and Plan 50-year-old female past medical history obesity, coronary artery disease with history of STEMI, myalgia, presented to hospital complaining of chest pain associated with nausea and vomiting. She has not vaccinated against Covid. Afebrile since admission with a white count of 3.1. Tested positive for Covid. Patient has normal renal function and normal procalcitonin. Currently on supplemental oxygen with nasal cannula. Chest CT: Bilateral pneumonia Assessment and plan -- Acute respiratory failure with hypoxia Due to COVID-19 pneumonia Patient is on supplemental O2 with nasal cannula oxygen Adjust oxygen as necessary -- Bilateral pneumonia with COVID-19 DC IV Zithromax and IV Rocephin as procalcitonin is normal Patient initiated on empiric steroid and remdesivir ID and pulmonary consulted Continue to follow inflammatory markers Wean off O2 as tolerated -- Acute chest pain, likely due to underlying pneumonia Cardiac enzymes are negative Atypical chest pain per cardiology --Hyponatremia, POA, resolved --Hypokalemia, replete and monitor BMP -- HLD (hyperlipidemia) Continue statins, follow LFT -- HTN (hypertension) Continue antihypertensives and adjust medications as necessary -- CAD (coronary artery disease) Continue Plavix and aspirin and isosorbide mononitrate --Morbid obesity, associated with poor outcome with Covid infection Dietary and lifestyle modification advice when clinically more stable as outpatient -- DVT prophylaxis Lovenox and GI prophylaxis Daily clinical course: 06/04/2021 Patient is Covid positive Cardiology consult requested with chest pain 06/05/2021 Patient is on 5 L nasal cannula oxygen Chest pain is atypical Cardiology consult appreciated 06/06/21: Patient on 7 L nasal cannula today, ID consulted, initiated on remdesivir dexamethasone, continue to follow inflammatory markers 06/07/21: Patient on 10 L nasal cannula O2 today, continue remdesivir and dexamethasone, ID and pulmonary care following. Continue to follow inflammatory markers are elevated off O2 as tolerated. 06/08/21: Supplemental O2 weaned off to 3 L today. Continue to follow clinically. Continue remdesivir and dexamethasone 06/09/21: Patient is back on 10 to 7 L nasal cannula O2. Continue remdesivir and dexamethasone. Follow inflammatory markers, wean off O2 as tolerated. 06/10/21: Patient remains on 7 L nasal cannula O2, last dose of remdesivir today. Patient otherwise clinically stable. Continue to follow inflammatory markers. Due to history of coronary artery disease and morbid obesity patient is high risks for poor outcome. 06/11/21: Patient remains on 7 L nasal cannula O2 today, plan to wean off aggressively, patient clinically looks much more stable. Continue to follow inflammatory markers. 06/12/21: Continue to wean off O2, patient currently on 2 L nasal cannula. Will assess for home O2 requirement. If clinically stable possible discharge tomorrow. Subjective Date of service: 06/13/21 Principal diagnosis: Ac hypoxemic resp failure; COVID-19; Pneumonia; OHS; CAD; Hyponatremia Objective - Constitutional Vitals: Vital Signs - 12hr 06/14/21 06/14/21 06/14/21 08:52 09:54 09:55 Pulse Rate 64 64 Blood Pressure 146/103 146/103 O2 Sat by Pulse 96 Oximetry - Labs CBC & Chem 7: 06/12/21 16:38 06/11/21 09:02 HEART Score - HEART Score EKG: Non-specific Age: 45-65 Risk factors: > 3 risk factors or hx of atherosclerotic disease Troponin: Troponin T < 0.010 ng/mL (0.00-0.029) 06/03/21 16:47 Troponin: < normal limit - Critical Actions Critical Actions: 4-6 pts:12-16.6% risk of adverse cardiac event. Should be admitted
[2021-06-14 17:20] VITALS: BP 146/96
== END 2021-06-14 18:03 | disposition home or self-care (01) | DRG 177 ==
LOC: ED 08:30 → 3A 15:54 → 4A 06-05 05:41 → 3A 06-05 11:50
PROVIDERS: ADMIT Internal Medicine; ATTEND Internal Medicine
PROC: XW033E5 Introduction of Remdesivir Anti-infective into Peripheral Vein, Percutaneous Approach, New Technology Group 5 (ICD-10-PCS; principal; 2021-06-06)
DX: U07.1 COVID-19 (principal); J96.01 Acute respiratory failure with hypoxia; J12.82 Pneumonia due to coronavirus disease 2019; E87.1 Hypo-osmolality and hyponatremia; E78.5 Hyperlipidemia, unspecified; I25.10 Atherosclerotic heart disease of native coronary artery without angina pectoris; E66.01 Morbid (severe) obesity due to excess calories; Z68.38 Body mass index [BMI] 38.0-38.9, adult; Z88.8 Allergy status to other drugs, medicaments and biological substances; I25.2 Old myocardial infarction; M79.7 Fibromyalgia; I11.0 Hypertensive heart disease with heart failure; I50.9 Heart failure, unspecified; Z79.82 Long term (current) use of aspirin; E87.6 Hypokalemia
CPT/HCPCS: 36415; 71045; 71250; 78580; 80048; 80053; 82140; 82550; 82553; 82728; 82947; 82962; 83036; 83615; 83880; 84145; 84484; 84703; 85025; 85379; 85610; 85730; 86140; 87040; 93005; 94760; G0378; A9270-GY; A9540; J0360; J0456; J0696; J1100; J1170; J1644; J1940; J2270; J2405; J7050; U0003